=== PATIENT | female | born 1965 | race Caucasian/White ===

== ENCOUNTER → 2016-09-13 | Outpatient (CLI) | payer OTHER ==
[2016-09-13 11:36] VITALS: BP 157/95; PULSE 89; RESP 16; TEMP 98.3; BMI 51.2
--- NOTE | 2016-09-13 11:52 | P.BASOAP ---
Subjective Principal diagnosis: Morbid obesity Patient here today for band adjustment. She has had frequent episodes of vomiting and dysphagia lately. She believes that she has to cc of fluid in her band. She was most recently followed at [facility]. No abdominal pain. The patient has been struggling with her band tolerance of late. She's been having migraines and believes this is contributing to her vomiting issues. Objective - Vital Signs Vital signs: Vital Signs Temp 98.3 F 09/13/16 11:26 Pulse 89 09/13/16 11:26 Resp 16 09/13/16 11:26 BP 157/95 09/13/16 11:26 Pulse Ox Intake & Output 09/12/16 09/13/16 09/13/16 18:59 06:59 18:59 Weight 131.315 kg - Exam Physical exam: General: Well-developed, well-nourished HEENT: Normocephalic, sclerae nonicteric Abdomen: Nontender, nondistended Extremities: No edema Neuro: Alert and oriented Assessment/Plan (1) Morbid obesity Narrative/Plan: Will proceed with band adjustment at this time. We'll move towards eventual band conversion. The patient plans to come to a seminar in the near future. The patient's lap band port was palpated. The site was aseptically prepped. 1% lidocaine was infiltrated into the subcutaneous tissues through a diabetic syringe. The Pinedo needle was advanced into the port. Aspiration took place. A total of 2 ml of fluid was removed. Pressure was held and a sterile dressing was applied. Plan: Date: 09/13/16 Initial Weight: 154.675 kg Initial BMI: 60.4 Current Weight: 131.315 kg Current BMI: 51.2 Type of Surgery: Total Volume in Band: 0 Previous Volume: 2.5 Volume Removed: 2 Volume Added: Band Size:
== END | disposition home or self-care (01) ==
LOC: BARWHC3 11:15
PROVIDERS: ATTEND Surgery
DX: E66.01 Morbid (severe) obesity due to excess calories (principal); Z68.43 Body mass index [BMI] 50.0-59.9, adult
CPT/HCPCS: 99202

== ENCOUNTER → 2017-04-01 | Outpatient (CLI) | payer BC ==
[2017-04-01 08:46] LABS: HCT 40.7 % (34.0-46.0); HGB 13.3 gm/dL (11.4-16.0); Hypochromasia Slight; MCH 27.9 pg (25.0-35.0); MCHC 32.7 g/dL (31.0-37.0); MCV 85.3 fL (80.0-100.0); Mean Platelet Volume 6.6; Platelet Count 279 k/uL (150-450); RBC 4.77 m/uL (3.80-5.40); RDW 14.5 % (11.5-15.5); WBC 10.6 k/uL (3.8-10.6)
[2017-04-01 09:18] LABS: ALT 98 U/L (9-52); AST 81 U/L (14-36); Anion Gap 11 mmol/L; Blood Urea Nitrogen 15 mg/dL (7-17); Calcium 9.7 mg/dL (8.4-10.2); Carbon Dioxide 26 mmol/L (22-30); Chloride 106 mmol/L (98-107); Cholesterol 152 mg/dL (<200); Glucose 171 mg/dL (74-99); HDL Cholesterol 46 mg/dL (40-60); LDL Cholesterol,Calculated 79 mg/dL (0-99); Potassium 4.8 mmol/L (3.5-5.1); Sodium 143 mmol/L (137-145); Triglycerides 134 mg/dL (<150)
[2017-04-01 09:31] LABS: T4, Free (Free Thyroxine) 0.79 ng/dL (0.78-2.19)
[2017-04-01 17:08] LABS: Vitamin D 25 Hydroxy 47.9 ng/mL (30.0-100.0)
[2017-04-01 17:45] LABS: Iron Saturation 10.31 (12.00-45.00)
== END | disposition home or self-care (01) ==
LOC: LABWHC1 08:23
PROVIDERS: ATTEND Family Medicine
DX: I10 Essential (primary) hypertension (principal); E55.9 Vitamin D deficiency, unspecified; E78.5 Hyperlipidemia, unspecified; D50.9 Iron deficiency anemia, unspecified; R53.83 Other fatigue
CPT/HCPCS: 36415; 80048; 80061; 82306; 82728; 83540; 83550; 84439; 84443; 84450; 84460; 85027

== ENCOUNTER → 2017-04-07 | Day surgery (SDC) | payer BC, OTHER ==
[2017-03-31 15:47] VITALS: BMI 51.8
[~2017-04-07] MED LIST: ALPRAZolam 0.25 MG TAB PO PRN; ASPIRIN 325 MG TAB PO ONE; ASPIRIN 81 MG PO SCH; CHOLECALCIFEROL 50000 UNIT PO SCH; FERROUS SULFATE 325 MG TAB PO SCH; HEPARIN SODIUM 1,000 UN/ML (10ML VL) IV ONE; HEPARIN SODIUM 1,000 UN/ML (10ML VL) ONE; INSULIN ASPART 100 UNIT/ML 1 ML 10 ML VIAL SQ ONE; INSULIN GLARGINE SQ SCH; INSULIN LISPRO 70 UNIT SQ SCH; IOHEXOL 350 MG/ML 125ML BOTTLE INJ ONE; LIDOCAINE 2% INJ 20 MG/ML (20 ML MDV) ONE; LIDOCAINE 2% INJ 20 MG/ML SQ ONE; LOSARTAN 50 MG TAB PO SCH; MIDAZOLAM 2 MG/2 ML VIAL ONE; NITROGLYCERIN SL TABS 0.4 MG TAB SUBLINGUAL PRN; NON-FORMULARY DRUG (Cetirizine Hcl [Zyrtec] 10 MG) PO SCH; NON-FORMULARY DRUG (Empagliflozin [Jardiance] 25 MG) PO SCH; NON-FORMULARY DRUG (Liraglutide [Victoza 3-Pak] 1.8 MG) SQ SCH; NON-FORMULARY DRUG (Ranitidine Hcl [Zantac] 150 MG) PO SCH; RX INFO: IV CONTRAST WAS GIVEN 1 EACH MISC MISCELLANE PRN; SODIUM CHLORIDE 0.9% 1,000 ML IV SCH; SODIUM CHLORIDE 0.9% 1,000 ML in EMPTY BAG 1 BAG IV ONE; VENLAFAXINE HCL 75 MG TAB PO SCH; VERAPAMIL 2.5 MG/ML 2 ML AMP ONE; VERAPAMIL SYRINGE (5 MG/10 ML) INTRAARTER ONE; diphenhydrAMINE 50 MG/ML 1 ML VIAL IVP ONE; diphenhydrAMINE 50 MG/ML 1 ML VIAL ONE; fentaNYL (PF) 50 MCG/ML 2 ML AMP IV ONE; fentaNYL (PF) 50 MCG/ML 2 ML AMP ONE
[2017-04-07 07:02] VITALS: TEMP 98.2
[2017-04-07] MEDS: VERAPAMIL SYRINGE (5 MG/10 ML) INTRAARTER ONE ×2 (07:57→08:02)
[2017-04-07 07:58] LABS: Glucose,Whole Blood 167 mg/dL (75-99)
[2017-04-07] MEDS: MIDAZOLAM 2 MG/2 ML VIAL IV ONE ×2 (08:01→08:04)
--- NOTE | 2017-04-07 09:06 | CC ---
CARDIAC CATHETERIZATION REPORT Ms. Dalton is a 51-year-old female with known history of hypertension, hyperlipidemia, diabetes mellitus, who has been complaining of progressive dyspnea on exertion and fatigue, underwent myocardial perfusion imaging that revealed a partial reversible anterior wall defect. In view of that, recommendation was made regarding cardiac catheterization. The procedure as well as the risks and complications were discussed with the patient who was in full understanding and agreement. PROCEDURE: Patient was brought to the crime lab analyst in a fasting semi-sedated state after receiving fentanyl and Benadryl and achieving moderate conscious sedated state. Using Xylocaine anesthesia in the Seldinger technique, a 6-[place] sheath was introduced in the right radial artery. Attempt to cannulate the coronary arteries using 5-[place] 3.5 bend right and left Marcial catheter were unsuccessful because of severe spasm. At that time, those catheters were removed and a 6-[place] Pedro catheter was advanced and images of the left and right coronary system were obtained. Multiple views of the coronary artery including hemiaxial views were obtained. Following this, 5-[place] tight pigtail catheter was introduced in the left ventricle and a 30-degree TIAN view of the left ventricle was obtained. Following that, the catheter and sheaths were removed. Hemostasis was obtained with deployment of a TR band. There was no immediate complication. Patient was returned to her room in stable condition. Of note, the patient received 5000 units of intravenous heparin as well as intra-arterial verapamil. FINDING: LEFT MAIN: This is a large-sized vessel bifurcating in the left circumflex and left anterior descending artery. Left main coronary artery is without any significant obstructive disease. LEFT ANTERIOR DESCENDING ARTERY: This is a large-sized vessel reaching toward the apex with a wraparound apex segment. The left anterior descending artery has no evidence of high-grade stenosis. LEFT CIRCUMFLEX: This is a nondominant vessel giving rise to 3 obtuse marginal branches. The second one is largest in caliber. The left circumflex as well as branches have no evidence of obstructive coronary artery disease. RIGHT CORONARY ARTERY: This is a large dominant vessel bifurcating in PDA and posterolateral segment and branches. The right coronary artery as well as branches have no evidence of obstructive coronary artery disease. LEFT VENTRICULOGRAM: Left ventriculogram is performed 30-degree TIAN view and revealed normal left ventricular size and systolic function. Ejection fraction is 55%. There was no significant mitral regurgitation. HEMODYNAMICS: There was no gradient across the aortic valve. The left ventricular end- diastolic pressure was 20 mmHg. CONCLUSION: 1. Normal coronary arteries. 2. Normal left ventricular size and systolic function. RECOMMENDATION: In view of finding anatomy, recommend continue medical therapy with aggressive coronary risk medications that has been initiated. Those findings and recommendation were discussed with the patient and her family and are in full understanding and agreement. Duration of procedure is 45 minutes. DEA / CHERRIEN: [id number] /
--- NOTE | 2017-04-07 09:12 | LTR ---
April 07, 2017 Re: Elizabeth Sha Dear Dr. Olivares: I had the opportunity to perform cardiac catheterization on Mrs Dalton at [facility] on the 07 of April and a full copy of the procedure note will be forwarded to you. In brief, she was found to have no evidence of high-grade stenosis with preserved left ventricular size and systolic function. Based on those findings, I recommend continuing medical therapy with aggressive coronary risk modification to be initiated. Thank you again for allowing me the opportunity to participate in her care. Please feel free to call for any questions. Sincerely yours, Miguel A Alves MD MMLUDWINL / CHERRIEN: [phone] /
[2017-04-07 09:39] VITALS: RESP 18
[2017-04-07 10:11] VITALS: BP 134/62
[2017-04-07 12:30] VITALS: PULSE 90
== END | disposition home or self-care (01) ==
LOC: CATHCVL 06:21
PROVIDERS: ATTEND Internal Medicine Interventional Cardiology
DX: R94.39 Abnormal result of other cardiovascular function study (principal); R06.09 Other forms of dyspnea; I10 Essential (primary) hypertension; E78.2 Mixed hyperlipidemia; E11.9 Type 2 diabetes mellitus without complications; Z79.4 Long term (current) use of insulin; Z82.49 Family history of ischemic heart disease and other diseases of the circulatory system; G47.33 Obstructive sleep apnea (adult) (pediatric); Z98.84 Bariatric surgery status; Z79.82 Long term (current) use of aspirin; Z79.899 Other long term (current) drug therapy
CPT/HCPCS: 93458; C1894; C1769; J2001; J2250; J1200; J3010; J1644; Q9967

== ENCOUNTER → 2017-11-14 | Outpatient (CLI) | payer BC ==
--- NOTE | 2017-11-15 12:28 | MM ---
Reason for exam: screening (asymptomatic). Last mammogram was performed 3 years and 1 month ago. History: Patient is postmenopausal and had first child at age 39. Family history of breast cancer in maternal aunt at age 42. Took hormonal contraceptives for 1 year 6 months. Physical Findings: A clinical breast exam by your physician is recommended on an annual basis and results should be correlated with mammographic findings. MG 3D Screening Mammo W/Cad Bilateral CC and MLO view(s) were taken. Prior study comparison: October 23, 2014, bilateral MG screening mammo w CAD. May 17, 2012, bilateral digital screening mammo w/CAD. The breast tissue is heterogeneously dense. This may lower the sensitivity of mammography. There is no discrete abnormality. No significant changes when compared with prior studies. ASSESSMENT: Negative, BI-RAD 1 RECOMMENDATION: Routine screening mammogram of both breasts in 1 year.
== END ==
LOC: RADMAMWWP 14:59
PROVIDERS: ATTEND Obstetrics & Gynecology
DX: Z12.31 Encounter for screening mammogram for malignant neoplasm of breast (principal)
CPT/HCPCS: 77063; 77067

== ENCOUNTER → 2018-07-31 | Outpatient (CLI) | payer BC ==
[2018-07-31 15:07] VITALS: BP 178/88; PULSE 95; TEMP 98.7; BMI 57.9
--- NOTE | 2018-07-31 16:57 | P.BASOAP ---
Subjective Progress Note Date: 07/31/18 Principal diagnosis: Morbid obesity Patient known to our service. Last seen 2 years ago. At that time the patient had 2 mL removed from her lap band. Her weight has gone up. At the time that her band was emptied she was having issues with frequent vomiting and reflux. Those issues have gone completely. She has gained 35 pounds the last 8 months. She has had increased insulin requirements. Patient is interested in sleeve gastrectomy. She is not interested in gastric bypass. Objective - Vital Signs Vital signs: Vital Signs Temp 98.7 F 07/31/18 15:04 Pulse 95 07/31/18 15:04 Resp BP 178/88 07/31/18 15:04 Pulse Ox Intake & Output 07/30/18 07/31/18 07/31/18 18:59 06:59 18:59 Weight 148.325 kg - Exam Abdomen: Soft, nontender, nondistended Assessment/Plan (1) Morbid obesity Narrative/Plan: Options of conversion from LAP-BAND to bypass or sleeve gastrectomy reviewed. T he greater degree of weight loss anticipated with gastric bypass discussed in detail. She states she has multiple examples of people she has associated with previously that had difficulties with her gastric bypass and is not interested in malabsorption related surgeries at this time. She would like to proceed with preoperative workup for sleeve gastrectomy conversion. Patient will require preoperative EGD. We'll determine other insurance requirements at this time. Plan: Date: 07/31/18 Initial Weight: 154.675 kg Initial BMI: 60.4 Current Weight: 148.325 kg Current BMI: 57.9 Type of Surgery: Total Volume in Band: 0 Previous Volume: Volume Removed: Volume Added: Band Size:
== END ==
LOC: BARWHC3 14:29
PROVIDERS: ATTEND Surgery
DX: E66.01 Morbid (severe) obesity due to excess calories (principal); Z68.43 Body mass index [BMI] 50.0-59.9, adult; Z98.84 Bariatric surgery status
CPT/HCPCS: 99211

== ENCOUNTER → 2019-01-24 | Outpatient (CLI) | payer BC ==
[2019-01-24 07:25] LABS: HCT 39.2 % (34.0-46.0); HGB 12.2 gm/dL (11.4-16.0); Hypochromasia Moderate; MCH 25.6 pg (25.0-35.0); MCV 82.5 fL (80.0-100.0); Mean Platelet Volume 5.9; Platelet Count 267 k/uL (150-450); RBC 4.75 m/uL (3.80-5.40); RDW 14.8 % (11.5-15.5); WBC 8.6 k/uL (3.8-10.6)
[2019-01-24 07:28] LABS: African American GFR (CKD) >90 (>60 ml/min/1.73 sqM); Blood Urea Nitrogen 9 mg/dL (7-17); Potassium 4.4 mmol/L (3.5-5.1)
== END | disposition home or self-care (01) ==
LOC: LABPAT 06:39
PROVIDERS: ATTEND Surgery
DX: Z01.818 Encounter for other preprocedural examination (principal); Z01.812 Encounter for preprocedural laboratory examination
CPT/HCPCS: 36415; 82565; 84132; 84520; 85027; 93005

== ENCOUNTER 2019-01-25 12:05 | Day surgery (SDC) | payer BC ==
[2019-01-23 15:04] VITALS: BMI 60.4
[~2019-01-25 12:05] MED LIST changes: -ALPRAZolam 0.25 MG TAB PO PRN; -ASPIRIN 325 MG TAB PO ONE; -ASPIRIN 81 MG PO SCH; -CHOLECALCIFEROL 50000 UNIT PO SCH; +DEXAMETHASONE SOD PHOSPHATE 10 MG/ML 1 ML VIAL IV ONE; -FERROUS SULFATE 325 MG TAB PO SCH; -HEPARIN SODIUM 1,000 UN/ML (10ML VL) IV ONE; -HEPARIN SODIUM 1,000 UN/ML (10ML VL) ONE; +HEPARIN SODIUM,PORCINE 5,000 UNIT/ML 1 ML VIAL SQ ONE; -INSULIN ASPART 100 UNIT/ML 1 ML 10 ML VIAL SQ ONE; -INSULIN GLARGINE SQ SCH; -INSULIN LISPRO 70 UNIT SQ SCH; -IOHEXOL 350 MG/ML 125ML BOTTLE INJ ONE; +LACTATED RINGERS 1,000 ML IV SCH; -LIDOCAINE 2% INJ 20 MG/ML (20 ML MDV) ONE; -LIDOCAINE 2% INJ 20 MG/ML SQ ONE; -LOSARTAN 50 MG TAB PO SCH; +MIDAZOLAM 2 MG/2 ML VIAL IV PRN; -MIDAZOLAM 2 MG/2 ML VIAL ONE; -NITROGLYCERIN SL TABS 0.4 MG TAB SUBLINGUAL PRN; -NON-FORMULARY DRUG (Cetirizine Hcl [Zyrtec] 10 MG) PO SCH; -NON-FORMULARY DRUG (Empagliflozin [Jardiance] 25 MG) PO SCH; -NON-FORMULARY DRUG (Liraglutide [Victoza 3-Pak] 1.8 MG) SQ SCH; -NON-FORMULARY DRUG (Ranitidine Hcl [Zantac] 150 MG) PO SCH; -RX INFO: IV CONTRAST WAS GIVEN 1 EACH MISC MISCELLANE PRN; +SCOPOLAMINE 1.5MG/72HR PATCH TRANSDERM ONE; -SODIUM CHLORIDE 0.9% 1,000 ML IV SCH; -SODIUM CHLORIDE 0.9% 1,000 ML in EMPTY BAG 1 BAG IV ONE; -VENLAFAXINE HCL 75 MG TAB PO SCH; -VERAPAMIL 2.5 MG/ML 2 ML AMP ONE; -VERAPAMIL SYRINGE (5 MG/10 ML) INTRAARTER ONE; +ceFAZolin 3 GM in SODIUM CHLORIDE 0.9% 100 ML IVPB ONE; -diphenhydrAMINE 50 MG/ML 1 ML VIAL IVP ONE; -diphenhydrAMINE 50 MG/ML 1 ML VIAL ONE; -fentaNYL (PF) 50 MCG/ML 2 ML AMP IV ONE; +fentaNYL (PF) 50 MCG/ML 2 ML AMP IV PRN; -fentaNYL (PF) 50 MCG/ML 2 ML AMP ONE
[2019-01-25] MEDS ORDERED: LIDOCAINE 1% 20 ML VIAL (10MG/ML) FOR IV START INTRADERMA ONE (12:51)
[2019-01-25] MEDS: ONDANSETRON 4 MG/2 ML VIAL IVP ONE ×2 (12:52→16:39)
[2019-01-25 12:56] LABS: Glucose,Whole Blood 119 mg/dL (75-99)
--- NOTE | 2019-01-25 13:49 | P.GSHP ---
History of Present Illness H&P Date: 01/25/19 Chief Complaint: Chronic cholecystitis 53-year-old female known to our service from previous lap band. Patient's band is empty at this time. Patient was known to have slightly elevated liver enzymes. Recent ultrasound was performed and was found to have gallstones and gallbladder wall thickening. Notices intermittent episodes of sharp epigastric pain right greater than left. Pain does radiate to the back. During these episodes have some nausea and vomiting and some loose stools. No change in the color of her skin urine or stool. Patient still considering conversion to bypass for sleep. ALT 101 AST 97 bilirubin and alkaline phosphatase normal. Past Medical History Past Medical History: Diabetes Mellitus, GERD/Reflux, Hyperlipidemia, Hypertension Additional Past Medical History / Comment(s): obesity , anemia, mild sleep apnea (no machine), heart murmur, Has Lap Band (states no fluid) History of Any Multi-Drug Resistant Organisms: None Reported Past Surgical History: Bariatric Surgery, Section, Heart Catheterization Additional Past Surgical History / Comment(s): Lap band August 2004, Right oopherectomy 1993, Left oopherectomy 2012. Heart Cath ([facility] -Mar 2017) Past Anesthesia/Blood Transfusion Reactions: No Reported Reaction Additional Past Anesthesia/Blood Transfusion Reaction / Comment(s): states long time to wake up Past Psychological History: Anxiety Smoking Status: Never smoker Past Alcohol Use History: None Reported Past Drug Use History: None Reported - Past Family History Mother Family Medical History: Cancer Additional Family Medical History / Comment(s): Rectal cancer Medications and Allergies Home Medications Medication Instructions Recorded Confirmed Type Losartan [Cozaar] 50 mg PO DAILY 05/29/15 01/25/19 History Simvastatin [Zocor] 20 mg PO HS 05/29/15 01/25/19 History Venlafaxine HCl [Effexor] 75 mg PO HS 05/29/15 01/25/19 History Insulin Regular, Human [humulin R 150 unit SQ AC-BRKFST 07/24/18 01/25/19 History U-500 Kwikpen] Dulaglutide [Trulicity] 1.5 mg SQ WEEKLY 01/23/19 01/25/19 History Ergocalciferol [Vitamin D2] 50,000 unit PO Q7D 01/23/19 01/25/19 History Ertugliflozin Pidolate [Steglatro] 5 mg PO DAILY 01/23/19 01/25/19 History Insulin Regular, Human [humulin R 120 unit SQ AC-LUNCH 01/23/19 01/25/19 History U-500 Kwikpen] Insulin Regular, Human [humulin R 150 unit SQ AC-SUPPER 01/23/19 01/25/19 History U-500 Kwikpen] Iron Supplement 1 tab PO DAILY 01/23/19 01/25/19 History Omeprazole 40 mg PO DAILY 01/23/19 01/25/19 History Pioglitazone HCl 30 mg PO DAILY 01/23/19 01/25/19 History metFORMIN HCL [Glucophage] 1,000 mg PO BID 01/23/19 01/25/19 History Allergies Allergy/AdvReac Type Severity Reaction Status Date / Time codeine AdvReac Nausea & Verified 01/25/19 12:53 Vomiting hydrocodone [From Vicodin] AdvReac Nausea & Verified 01/25/19 12:53 Vomiting Surgical - Exam Vital Signs Temp Pulse Resp BP Pulse Ox 98.5 F 101 H 20 166/72 96 01/25/19 12:46 01/25/19 12:46 01/25/19 12:46 01/25/19 12:46 01/25/19 12:46 Physical exam: General: Well-developed, well-nourished HEENT: Normocephalic, sclerae nonicteric Abdomen: Nontender, nondistended Extremities: No edema Neuro: Alert and oriented Results - Labs Abnormal Lab Results - Last 24 Hours (Table) 01/25/19 Range/Units 12:51 POC Glucose (mg/dL) 119 H (75-99) mg/dL Assessment and Plan (1) Chronic cholecystitis Narrative/Plan: Patient with elevated liver enzymes and gallstones with gallbladder wall thickening. Informed the patient that the elevation and ALT and AST may be on the basis of fatty infiltration of liver. Concurrent inflammation at the gallbladder may be contributing. Do not clinically suspect choledocholithiasis at this time. We'll proceed with laparoscopic cholecystectomy, possible open cholecystectomy at this time. Risks of bleeding, infection, bile leak, bile duct injury, retained common bile duct stone, trocar injury, conversion to an open procedure, hernia, anesthesia related complications were reviewed. The patient understands and wishes to proceed. Current Visit: Yes Status: Acute Code(s): K81.1 - CHRONIC CHOLECYSTITIS SNOMED Code(s): 96642610
[2019-01-25] MEDS ORDERED: KETOROLAC 30 MG/ML 1 ML VIAL ONE (15:10)
[2019-01-25] MEDS ORDERED: LIDOCAINE 1% INJ 10MG/ML (20 ML MDV) ONE (15:10)
[2019-01-25] MEDS ORDERED: ROCURONIUM BROMIDE 10 MG/ML 10 ML VIAL IV ONE (15:10)
[2019-01-25] MEDS ORDERED: NEOSTIGMINE 1 MG/ML 10 ML VIAL ONE (15:10)
[2019-01-25] MEDS ORDERED: SUCCINYLCHOLINE CHLORIDE 100 MG/5 ML SYR IV ONE (15:10)
[2019-01-25] MEDS ORDERED: PROPOFOL 10 MG/ML 20 ML VIAL IV ONE (15:10)
[2019-01-25] MEDS ORDERED: fentaNYL (PF) 50 MCG/ML 2 ML AMP ONE (15:10)
[2019-01-25] MEDS ORDERED: GLYCOPYRROLATE 0.2 MG/ML 2 ML VIAL ONE (15:10)
[2019-01-25] MEDS ORDERED: MIDAZOLAM 2 MG/2 ML VIAL ONE (15:10)
[2019-01-25] MEDS ORDERED: PHENYLEPHRINE-0.9% NACL SYG 1 MG/10 ML SYRINGE ONE (15:10)
[2019-01-25] MEDS ORDERED: BUPIVACAINE (PF) 0.5% 30 ML VIAL SQ ONE (15:40)
[2019-01-25] MEDS ORDERED: traMADol 50 MG TAB PO PRN (16:16)
[2019-01-25] MEDS ORDERED: NALOXONE 0.4 MG/ML 1 ML VIAL IV PRN (16:16)
--- NOTE | 2019-01-25 16:18 | P.OP ---
Date of Procedure: 01/25/19 Procedure(s) Performed: PREOPERATIVE DIAGNOSIS: Chronic cholecystitis POSTOPERATIVE DIAGNOSIS: Same, nodular liver PROCEDURE: Laparoscopic cholecystectomy SURGEON: Kiah EBL: Minimal see anesthesia record ANESTHESIA: Gen. COMPLICATIONS: None OPERATIVE PROCEDURE: The patient was brought and placed on the operating room table in the supine position. The patient was placed under general anesthesia at that time. The abdomen was prepped and draped in the usual sterile fashion. A small curvilinear supraumbilical incision was made. The fascia was grasped with the Divya forceps. The fascia was retracted anteriorly. The Veress needle was advanced into the peritoneal cavity. The saline drop test was n ormal. Insufflation took place up to 15 mmHg. A 5 mm optical trocar was advanced and the peritoneal cavity. 2 additional 5 mm trochars were placed in the right upper quadrant under direct visualization. A 12 mm trocar was advanced into the epigastric incision site. The patient's liver had a nodular appearance. The gallbladder was mildly inflamed. The gallbladder was retracted superiorly and laterally. The peritoneum overlying the infundibulum was bluntly dissected. The patient's cystic duct was visualized. The junction between the cystic duct common and hepatic duct was identified. The cystic duct was then divided after placement of 3 12 mm clips on the patient's side and one on the specimen side. The cystic artery was identified and clipped as well. A small vessel was seen along the gallbladder fossa and clipped as well. The gallbladder was then removed from the liver bed using electrocautery. The gallbladder was then removed from the epigastric trocar site with an Endo Catch bag. The gallbladder fossa was irrigated with saline. There was no evidence of any bleeding or biliary drainage seen. The fascia at the 12 millimeter site was closed using a Scooby-Urvashi 0 Vicryl stitch. The trochars were then removed. The skin at all 4 sites was closed using a 4-0 Monocryl stitch. Adptht-zf-azeui 4-0 Monocryl sutures were used at our lateral to 5 mm skin incisions secondary to persistent skin bruising. Skin glue was utilized on the incision sites. At the end of this procedure the sponge and needle counts were correct. DISPOSITION: Stable to the recovery room
[2019-01-25 16:46] VITALS: TEMP 100.4
[2019-01-25 17:03] LABS: Glucose,Whole Blood 227 mg/dL (75-99)
[2019-01-25] MEDS ORDERED: ACETAMINOPHEN IV (For NPO) 1,000 MG/100 ML VIAL IVPB ONE (17:15)
[2019-01-25 17:27] VITALS: RESP 18
[2019-01-25 18:19] VITALS: BP 137/67; PULSE 58
== END 2019-01-25 18:19 | disposition home or self-care (01) ==
LOC: OR 12:05
PROVIDERS: ATTEND Surgery
DX: K80.10 Calculus of gallbladder with chronic cholecystitis without obstruction (principal); K76.89 Other specified diseases of liver; E11.9 Type 2 diabetes mellitus without complications; E78.5 Hyperlipidemia, unspecified; I10 Essential (primary) hypertension; D64.9 Anemia, unspecified; G47.33 Obstructive sleep apnea (adult) (pediatric); R01.1 Cardiac murmur, unspecified; F41.9 Anxiety disorder, unspecified; E66.01 Morbid (severe) obesity due to excess calories; Z68.44 Body mass index [BMI] 60.0-69.9, adult; Z98.84 Bariatric surgery status; Z98.890 Other specified postprocedural states; Z90.722 Acquired absence of ovaries, bilateral; Z91.89 Other specified personal risk factors, not elsewhere classified; Z79.899 Other long term (current) drug therapy; Z79.4 Long term (current) use of insulin; Z88.5 Allergy status to narcotic agent; Z80.0 Family history of malignant neoplasm of digestive organs
CPT/HCPCS: 47562; 88304; J2250; J1644; J1100; J2710; J0690; J2405; J2001; J3010; J1885; J0131; J2370; J0330; J2704

== ENCOUNTER → 2020-01-30 | Outpatient (CLI) | payer BC | END | disposition home or self-care (01) | LOC: LABWHC1 12:27 | PROVIDERS: ATTEND Family Medicine | DX: Z20.828 Contact with and (suspected) exposure to other viral communicable diseases (principal) | CPT/HCPCS: 87502; U0003; C9803 ==

== ENCOUNTER → 2020-01-31 | Outpatient (CLI) | payer BC | END | disposition home or self-care (01) | LOC: LABWHC1 14:55 | PROVIDERS: ATTEND Family Medicine | DX: Z20.828 Contact with and (suspected) exposure to other viral communicable diseases (principal) | CPT/HCPCS: 87502; U0003; C9803 ==

== ENCOUNTER → 2020-11-30 | Outpatient (CLI) | payer BC ==
--- NOTE | 2020-12-02 08:44 | MM ---
Reason for exam: screening (asymptomatic). Last mammogram was performed 3 years and 1 month ago. History: Patient is postmenopausal and had first child at age 39. Family history of breast cancer in maternal aunt at age 42. Took hormonal contraceptives for 1 year 6 months. Physical Findings: A clinical breast exam by your physician is recommended on an annual basis and results should be correlated with mammographic findings. MG 3D Screening Mammo W/Cad Bilateral CC and MLO view(s) were taken. CV view(s) were taken of the left breast. Prior study comparison: November 14, 2017, bilateral MG 3d screening mammo w/cad. October 23, 2014, bilateral MG screening mammo w CAD. There are scattered fibroglandular densities. New grouped left subareolar calcifications. ASSESSMENT: Incomplete: need additional imaging evaluation, BI-RAD 0 RECOMMENDATION: Special view mammogram of the left breast. (magnification) [facility] will attempt to contact patient to return for supplemental views.
== END | disposition home or self-care (01) ==
LOC: RADMAMWWP 12:43
PROVIDERS: ATTEND Obstetrics & Gynecology
DX: Z12.31 Encounter for screening mammogram for malignant neoplasm of breast (principal); Z78.0 Asymptomatic menopausal state; Z80.3 Family history of malignant neoplasm of breast
CPT/HCPCS: 77063; 77067

== ENCOUNTER → 2020-12-08 | Outpatient (CLI) | payer BC ==
--- NOTE | 2020-12-08 14:41 | MM ---
Reason for exam: additional evaluation requested from abnormal screening. Last mammogram was performed less than 1 month ago. History: Patient is postmenopausal and had first child at age 39. Family history of breast cancer in maternal aunt at age 42. Took hormonal contraceptives for 1 year 6 months. Physical Findings: Nurse did not find any significant physical abnormalities on exam. MG 3D Work Up W/Cad LT CC with magnification, LM with magnification, and LM view(s) were taken of the left breast. Prior study comparison: November 30, 2020, bilateral MG 3d screening mammo w/cad. November 14, 2017, bilateral MG 3d screening mammo w/cad. Finding: There are indeterminate coarse heterogeneous, linear calcifications in the lower outer quadrant, anterior position of the left breast. New finding since November 14, 2017. These results were verbally communicated with the patient and result sheet given to the patient on 12/08/20. ASSESSMENT: Suspicious, BI-RAD 4 RECOMMENDATION: Stereotactic core biopsy of the left breast. Called Dr. Hernandez's office with mammographic findings and has scheduled an appointment for the patient for 12/31/20 at 11:[address] Dupont. Biopsy scheduled for 12/21/20 at 10:30. PRELIMINARY REPORT CALLED AND FAXED TO DR. DUPONT ON 12/08/20.
== END | disposition home or self-care (01) ==
LOC: RADMAMWWP 13:23
PROVIDERS: ATTEND Obstetrics & Gynecology
DX: R92.1 Mammographic calcification found on diagnostic imaging of breast (principal); Z78.0 Asymptomatic menopausal state; Z80.3 Family history of malignant neoplasm of breast; Z79.3 Long term (current) use of hormonal contraceptives
CPT/HCPCS: 77061; 77065

== ENCOUNTER → 2020-12-21 | Day surgery (SDC) | payer BC ==
[2020-12-21 10:16] VITALS: RESP 16
[2020-12-21 11:36] VITALS: BP 143/76; PULSE 81; TEMP 98
--- NOTE | 2020-12-21 19:29 | MM ---
EXAMINATION TYPE: MG stereo VAD BX LT DATE OF EXAM: 12/21/2020 COMPARISON: 12/08/2020 and 11/30/2020 CLINICAL HISTORY: 55-year-old female abnormal mammogram, referred for scattered epicardial biopsy of left breast microcalcifications TECHNIQUE: Stereotactic guided core biopsy of the left breast. FINDINGS: The procedure of stereotactic guided core biopsy was explained to the patient. Benefits, a lternatives, and risks were discussed. An informed consent was then obtained. [facility]. [facility] pathway was an inferior approach. I performed the localization, followed by the remainder of the procedure. A vacuum assisted biopsy gun was used to obtain multiple core samples. The patient tolerated the procedure well without any immediate complication. The patient was kept in the radiology department for short stay after the procedure and then discharged home in stable condi tion. Targeted calcifications are identified in specimen mammogram. Post biopsy mammogram shows the clip t o appear in satisfactory position relative to the targeted area of concern on the preprocedure images in the subareolar lower outer quadrant. IMPRESSION: SUCCESSFUL, UNCOMPLICATED STEREOTACTIC GUIDED CORE BIOPSY SUBAREOLAR LOWER OUTER QUADRANT LEFT BREAST MICROCALCIFICATIONS. IF BENIGN RESULTS, SIX-MONTH FOLLOW-UP POSTBIOPSY MAMMOGRAM WILL BE RECOMMENDED . FULL PATHOLOGY RESULTS TO FOLLOW.
== END ==
LOC: RADMAMWWP 09:27
PROVIDERS: ATTEND Surgery
DX: C50.912 Malignant neoplasm of unspecified site of left female breast (principal); Z17.0 Estrogen receptor positive status [ER+]
CPT/HCPCS: 88305; 88342; 88341; 19081; A4648; J2001

== ENCOUNTER → 2021-01-15 | Outpatient (CLI) | payer BC ==
[2021-01-15 15:02] LABS: Basophils # (A) 0.1 k/uL (0-0.2); Basophils % (A) 1 %; Eosinophils # (A) 0.3 k/uL (0-0.7); Eosinophils % (A) 3 %; HGB 12.3 gm/dL (11.4-16.0); Lymphocytes # (A) 3.1 k/uL (1.0-4.8); Lymphocytes % (A) 31 %; MCH 26.5 pg (25.0-35.0); MCHC 32.3 g/dL (31.0-37.0); MCV 82.1 fL (80.0-100.0); Mean Platelet Volume 7.3; Monocytes # (A) 0.5 k/uL (0-1.0); Monocytes % (A) 5 %; Neutrophils % (A) 59 %; Platelet Count 248 k/uL (150-450); RBC 4.62 m/uL (3.80-5.40); RDW 15.5 % (11.5-15.5); WBC 10.2 k/uL (3.8-10.6)
[2021-01-15 15:20] LABS: African American GFR (CKD) >90 (>60 ml/min/1.73 sqM); Blood Urea Nitrogen 8 mg/dL (7-17); Non-African American GFR(CKD) >90 (>60 ml/min/1.73 sqM); Potassium 4.2 mmol/L (3.5-5.1)
== END | disposition home or self-care (01) ==
LOC: LABPAT 13:48
PROVIDERS: ATTEND Surgery
DX: Z01.812 Encounter for preprocedural laboratory examination (principal)
CPT/HCPCS: 82565; 84132; 84520; 85025; 93005

== ENCOUNTER 2021-01-18 06:51 | Day surgery (SDC) | payer BC ==
[2021-01-15 09:02] VITALS: BMI 54.7
[~2021-01-18 06:51] MED LIST changes: +ACETAMINOPHEN TAB 500 MG TAB PO PRN; -DEXAMETHASONE SOD PHOSPHATE 10 MG/ML 1 ML VIAL IV ONE; +DEXAMETHASONE SOD PHOSPHATE 4 MG/ML 1 ML VIAL IV ONE; -HEPARIN SODIUM,PORCINE 5,000 UNIT/ML 1 ML VIAL SQ ONE; +HEPARIN SODIUM,PORCINE/PF 5,000 UNIT/0.5 ML SYRINGE SQ PRN; +LIDOCAINE 1% (10MG/ML) FOR IV START INTRADERMA PRN; -MIDAZOLAM 2 MG/2 ML VIAL IV PRN; +ONDANSETRON 4 MG/2 ML VIAL IVP ONE; +Pre Op ABX Message 1 EACH MISC MISCELLANE ONE; -ceFAZolin 3 GM in SODIUM CHLORIDE 0.9% 100 ML IVPB ONE; -fentaNYL (PF) 50 MCG/ML 2 ML AMP IV PRN
[2021-01-18] MEDS ORDERED: fentaNYL (PF) 50 MCG/ML 2 ML AMP IV PRN (07:00)
[2021-01-18 07:23] VITALS: BP 172/87; PULSE 91; RESP 16; TEMP 97.1
[2021-01-18 07:43] LABS: Glucose,Whole Blood 429 mg/dL (75-99)
--- NOTE | 2021-01-18 09:23 | P.PN ---
Progress Note - Text Progress Note Date: 01/18/21 Patient came in today for elective left breast lumpectomy. She was found have her blood sugar at 429. Apparently she did not take any insulin this morning as she was told not to by the nurse that contacted her last week from the hospital. Spoke with anesthesia. They recommend canceling this procedure. The patient and I discussed the options but decided to cancel as well. I spoke to her welfare project manager. He will come up with some ways to improve her perioperative blood sugar realizing that she will not be within a "normal range". I will contact the patient to reschedule surgery the next 1-2 weeks.
== END 2021-01-18 08:12 | disposition home or self-care (01) ==
LOC: OR 06:51
PROVIDERS: ATTEND Surgery
DX: D05.12 Intraductal carcinoma in situ of left breast (principal); Z53.8 Procedure and treatment not carried out for other reasons; E66.01 Morbid (severe) obesity due to excess calories; Z68.43 Body mass index [BMI] 50.0-59.9, adult; F41.9 Anxiety disorder, unspecified; I10 Essential (primary) hypertension; Z90.722 Acquired absence of ovaries, bilateral; Z90.710 Acquired absence of both cervix and uterus; Z98.891 History of uterine scar from previous surgery; Z98.890 Other specified postprocedural states; Z98.84 Bariatric surgery status; Z90.49 Acquired absence of other specified parts of digestive tract; Z83.49 Family history of other endocrine, nutritional and metabolic diseases; Z80.0 Family history of malignant neoplasm of digestive organs; Z80.8 Family history of malignant neoplasm of other organs or systems; Z82.49 Family history of ischemic heart disease and other diseases of the circulatory system; Z83.3 Family history of diabetes mellitus; Z79.84 Long term (current) use of oral hypoglycemic drugs; Z79.4 Long term (current) use of insulin; Z79.899 Other long term (current) drug therapy; Z88.5 Allergy status to narcotic agent; Z88.8 Allergy status to other drugs, medicaments and biological substances

== ENCOUNTER 2021-01-22 09:08 | Day surgery (SDC) | payer BC ==
[2021-01-19 17:13] VITALS: BMI 53.7
--- NOTE | 2021-01-22 07:56 | P.GSHP ---
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 Areas of calcifications measuring about 1-1.5 cm. Patient was seen in the office 3-4 weeks ago. She actually was scheduled for surgery earlier this week but this was canceled because of elevated blood sugars. Coming in today for left breast lumpectomy with sentinel lymph node biopsy. Family history of breast cancer in a maternal aunt. Past Medical History Past Medical History: Cancer, Diabetes Mellitus, GERD/Reflux, Hyperlipidemia, Hypertension, Sleep Apnea/CPAP/BIPAP Additional Past Medical History / Comment(s): obesity , anemia, mild sleep apnea (no machine), heart murmur, Has Lap Band (states no fluid), NEW LT BREAST CANCER DX. CBG 429 -PROCEDURE RESCHEDULED TO 01/22/[address] NO REGARDING BLOOD SUGAR MORNING OF PROCEDURE. WAITING FOR CALL BACK FROM [facility] TO SEE [employer] MACHINE OPERATOR SPECIALIST. History of Any Multi-Drug Resistant Organisms: None Reported Past Surgical History: Bariatric Surgery, Section, Cholecystectomy, Heart Catheterization Additional Past Surgical History / Comment(s): Lap band August 2004, Right oopherectomy 1993, Left oopherectomy 2012. Heart Cath ([facility] -Mar 2017)-clear, COLONOSCOPY Past Anesthesia/Blood Transfusion Reactions: No Reported Reaction Additional Past Anesthesia/Blood Transfusion Reaction / Comment(s): states long time to wake up Smoking Status: Never smoker - Past Family History Mother Family Medical History: Cancer Additional Family Medical History / Comment(s): Rectal cancer Medications and Allergies Home Medications Medication Instructions Recorded Confirmed Type Losartan [Cozaar] 50 mg PO DAILY 05/29/15 01/19/21 History Venlafaxine HCl [Effexor] 75 mg PO HS 05/29/15 01/19/21 History Ergocalciferol [Vitamin D2] 50,000 unit PO ALEXANDRA 01/23/19 01/19/21 History Insulin Regular, Human [humulin R 300 unit SQ AC-TID 01/23/19 01/19/21 History U-500 Kwikpen] Omeprazole 40 mg PO DAILY 01/23/19 01/19/21 History metFORMIN HCL [Glucophage] 1,000 mg PO BID 01/23/19 01/19/21 History Furosemide [Lasix] 20 mg PO DAILY PRN 12/14/20 01/19/21 History Phentermine/Topiramate [Qsymia 15 1 tab PO DAILY 12/14/20 01/19/21 History mg-92 mg Capsule] Semaglutide [Ozempic] 1 mg INJ ALEXANDRA 12/14/20 01/19/21 History ALPRAZolam [Xanax] 0.5 mg PO HS PRN 01/15/21 01/19/21 History Cetirizine HCl [Zyrtec] 10 mg PO HS 01/15/21 01/19/21 History Rosuvastatin [Crestor] 10 mg PO HS 01/15/21 01/19/21 History Allergies Allergy/AdvReac Type Severity Reaction Status Date / Time codeine AdvReac Nausea & Verified 01/19/21 17:07 Vomiting hydrocodone [From Vicodin] AdvReac Nausea & Verified 01/19/21 17:07 Vomiting Surgical - Exam Physical exam: General: Well-developed, well-nourished HEENT: Normocephalic, sclerae nonicteric Right breast: No masses, no adenopathy Left breast: No masses, no adenopathy, recent scar noted Abdomen: Nontender, nondistended Extremities: No edema Neuro: Alert and oriented Assessment and Plan (1) Breast cancer, left breast Narrative/Plan: 55-year-old female with recent diagnosis of left breast high-grade ductal carcinoma in situ. We'll proceed with left breast wire localization lumpectomy with sentinel lymph node biopsy and injection at this time. Risks of bleeding, infection, scarring, possible need for further surgery, recurrence, seroma, nerve damage, numbness, weakness, lymphedema, possible need for axillary dissection reviewed. She understands wishes to proceed. Status: Acute Code(s): C50.912 - MALIGNANT NEOPLASM OF UNSPECIFIED SITE OF LEFT FEMALE BREAST SNOMED Code(s): 929389012
[2021-01-22] MEDS ORDERED: ALPRAZolam 0.5 MG TAB ONE (09:55)
[2021-01-22 09:56] LABS: Glucose,Whole Blood 74 mg/dL (75-99)
[2021-01-22] MEDS ORDERED: DEXTROSE 50% SYRINGE 50 ML IVP ONE (09:59)
[2021-01-22] MEDS ORDERED: ALPRAZolam 0.5 MG TAB PO ONE (09:59)
[2021-01-22] MEDS ORDERED: LIDOCAINE 1% INJ 10MG/ML (20 ML MDV) SQ ONE (11:40)
[2021-01-22] MEDS ORDERED: ceFAZolin 3 GM in SODIUM CHLORIDE 0.9% 100 ML IVPB ONE (11:57)
[2021-01-22] MEDS ORDERED: PROPOFOL 10 MG/ML 20 ML VIAL IV ONE (11:57)
[2021-01-22] MEDS ORDERED: NEOSTIGMINE 1 MG/ML 10 ML VIAL ONE (11:57)
[2021-01-22] MEDS ORDERED: GLYCOPYRROLATE 0.2 MG/ML 2 ML VIAL ONE (11:57)
[2021-01-22] MEDS ORDERED: ROCURONIUM 10 MG/ML (5 ML VIAL) IV ONE (11:57)
[2021-01-22] MEDS ORDERED: fentaNYL (PF) 50 MCG/ML 2 ML AMP ONE (11:57)
[2021-01-22] MEDS ORDERED: LIDOCAINE 1% INJ 10MG/ML (20 ML MDV) ONE (11:57)
[2021-01-22] MEDS ORDERED: MIDAZOLAM 2 MG/2 ML VIAL ONE (11:57)
[2021-01-22] MEDS ORDERED: SUCCINYLCHOLINE CHLORIDE 100 MG/5 ML SYR IV ONE (11:57)
[2021-01-22] MEDS ORDERED: PHENYLEPHRINE-0.9% NACL SYG 1,000 MCG/10 ML SYRINGE ONE (11:57)
[2021-01-22] MEDS ORDERED: BUPIVACAINE (PF) 0.25% 30 ML VIAL SQ ONE ×2 (12:39→13:25)
--- NOTE | 2021-01-22 13:10 | NM ---
EXAMINATION TYPE: NM sentinel node injection DATE OF EXAM: 01/22/2021 COMPARISON: NONE INDICATION: Abnormal mammogram. Informed consent was obtained. A timeout was performed. The area around the left nipple was cleansed with alcohol. In a single dose, a total of 512 uCi Cesar hnetium 99m Tilmanocept was injected. The patient tolerated the procedure very well. IMPRESSIONS: 1. Successful injection for sentinel node evaluation.
[2021-01-22] MEDS ORDERED: NALOXONE 0.4 MG/ML 1 ML VIAL IV PRN (13:51)
[2021-01-22] MEDS ORDERED: traMADol 50 MG TAB PO PRN (13:51)
--- NOTE | 2021-01-22 13:56 | P.OP ---
Date of Procedure: 01/22/21 Procedure(s) Performed: PREOPERATIVE DIAGNOSIS: Left left breast cancer POSTOPERATIVE DIAGNOSIS: Same PROCEDURE: Right Breast wire localization lumpectomy with sentinel lymph node biopsy SURGEON: Kiah EBL: Minimal ANESTHESIA: General COMPLICATIONS: None OPERATIVE PROCEDURE: Patient was placed on the operating room table in the supine position. 2 mL of methylene blue was injected into the subareolar space. The breast was then massaged for 5 minutes. The breast was prepped and draped in usual sterile fashion. The left axilla was addressed at that time. The hot spot in the left axilla was identified. A small curvilinear incision was made using the scalpel. Dissection down through the subcutaneous tissues took place using electrocautery. Using the neoprobe I identified a total of 4 sentinel lymph nodes. Only one of these was blue in color. These had benign exam characteristics. These were all removed and sent to pathology for permanent sectioning. The surgical site was inspected and no bleeding was seen. The subcutaneous tissues were closed using 3-0 Vicryl sutures. The skin was closed using 4-0 Monocryl sutures. The wire entrance site was then addressed. This was present at the 4:00 periareolar location. A curvilinear incision was made adjacent to the wire entrance site. I followed the wire down into the breast tissue. An adequate lumpectomy specimen then took place around the wire. Margins of 1.5-2 cm worth attempted to be achieved. A larger margin posteriorly was achieved after the images demonstrated the calcifications to be primarily posterior to the clip placement. The initial specimen was also painted the appropriate 6 colors. Clips were used to identify the lumpectomy cavity. The clip was confirmed to be within the lumpectomy specimen by radiology. The subcutaneous tissues were closed using 3-0 Vicryl sutures. The skin was closed using a running 4-0 Monocryl stitch. Skin glue was then applied. DISPOSITION: Stable to recovery room
[2021-01-22] MEDS ORDERED: ONDANSETRON 4 MG/2 ML VIAL ONE (14:03)
[2021-01-22 14:04] LABS: Glucose,Whole Blood 136 mg/dL (75-99)
[2021-01-22] MEDS ORDERED: ONDANSETRON 4 MG/2 ML VIAL IVP ONE ×2 (14:08→14:10)
[2021-01-22] MEDS: HYDROmorphone 0.5 MG/0.5 ML SYRINGE IVP PRN ×2 (14:10→15:17)
[2021-01-22 14:16] VITALS: TEMP 97
[2021-01-22] MEDS ORDERED: KETOROLAC 15 MG/ML 1 ML VIAL ONE (14:27)
[2021-01-22] MEDS ORDERED: KETOROLAC 15 MG/ML 1 ML VIAL IVP ONE (14:32)
--- NOTE | 2021-01-22 15:09 | P.NAPBC ---
NAPBC Queries - NAPBC Queries Was patient's case review presented at [facility] tumor board? If no, comment.: No Was patient's pathology reviewed at [facility]? If no, comment.: Yes Was breast conservation surgery offered? If no, comment.: Yes Was sentinel node biopsy offered? If no, comment.: Yes Was diagnosis confirmed by percutaneous core biopsy? If no, comment.: Yes Is patient mastectomy patient?: No Was a preop referral to reconstructive surgeon offered?: Yes Clinical Stage: 0
--- NOTE | 2021-01-22 15:16 | MM ---
EXAMINATION TYPE: MG pre op needle loc LT DATE OF EXAM: 01/22/2021 COMPARISON: 12/21/2020 mammogram CLINICAL HISTORY: Abnormal biopsy, neoplasm TECHNIQUE: Needle localization with wire placement and surgical excision of area of concern in the le ft breast. FINDINGS: The procedure of needle localization with wire placement for surgical excision was explaine d to the patient. Risk, benefits, and alternatives were discussed. An informed consent was then obt ained. A timeout was performed. The overlying skin was prepped and draped in usual sterile fashion. Lidocaine 1% was used as anesthe tic into the skin and subcutaneous tissue up to the level of area of concern. A 7 cm needle was used . This was placed via a lateral approach under mammographic guidance. Subsequent 90 degrees mammogr am show the needle to be in satisfactory position relative to the targeted area. The wire was placed through the needle and the needle was withdrawn. The wire was fixed to patient's skin. Images were marked for surgeon. The patient tolerated the procedure well without any immediate complication. Specimen: The wire and the targeted biopsy clip are identified within the specimen mammogram. IMPRESSION: 1. Successful wire localization and excision. Recommendations: 1. Recommendations are pending pathology results.
[2021-01-22 15:21] LABS: Glucose,Whole Blood 176 mg/dL (75-99)
[2021-01-22] MEDS ORDERED: HYDROmorphone 0.5 MG/0.5 ML SYRINGE IVP ONE (15:30)
[2021-01-22 15:53] VITALS: RESP 20
[2021-01-22 16:40] VITALS: BP 134/72; PULSE 95
== END 2021-01-22 16:46 | disposition home or self-care (01) ==
LOC: OR 09:08
PROVIDERS: ATTEND Surgery
DX: C50.912 Malignant neoplasm of unspecified site of left female breast (principal); E11.9 Type 2 diabetes mellitus without complications; I10 Essential (primary) hypertension; K21.9 Gastro-esophageal reflux disease without esophagitis; E78.5 Hyperlipidemia, unspecified; G47.30 Sleep apnea, unspecified; Z79.4 Long term (current) use of insulin
CPT/HCPCS: 19301; 19281; 76098; 38792; C1819; A9520; J2250; J1100; J2710; J0690; J2405; J2001; J3010; J1885; J2370; J0330; J2704; J1170; J1644

== ENCOUNTER 2021-03-01 06:33 | Day surgery (SDC) | payer BC ==
[2021-02-26 09:55] VITALS: BMI 54.2
[~2021-03-01 06:33] MED LIST changes: -DEXAMETHASONE SOD PHOSPHATE 4 MG/ML 1 ML VIAL IV ONE; -LACTATED RINGERS 1,000 ML IV SCH; -LIDOCAINE 1% (10MG/ML) FOR IV START INTRADERMA PRN; -ONDANSETRON 4 MG/2 ML VIAL IVP ONE; -SCOPOLAMINE 1.5MG/72HR PATCH TRANSDERM ONE
[2021-03-01] MEDS ORDERED: HYDROmorphone 0.5 MG/0.5 ML SYRINGE IVP PRN (07:16)
[2021-03-01] MEDS ORDERED: MIDAZOLAM 2 MG/2 ML VIAL IV PRN (07:16)
[2021-03-01] MEDS ORDERED: LACTATED RINGERS 1,000 ML IV SCH (07:16)
[2021-03-01] MEDS ORDERED: DEXAMETHASONE SOD PHOSPHATE 4 MG/ML 1 ML VIAL IV ONE (07:16)
[2021-03-01] MEDS ORDERED: ONDANSETRON 4 MG/2 ML VIAL IVP ONE (07:16)
[2021-03-01] MEDS ORDERED: LIDOCAINE 1% (10MG/ML) FOR IV START INTRADERMA PRN (07:16)
[2021-03-01 07:39] LABS: Glucose,Whole Blood 99 mg/dL (75-99)
[2021-03-01] MEDS ORDERED: PHENYLEPHRINE-0.9% NACL SYG 1,000 MCG/10 ML SYRINGE ONE (07:49)
[2021-03-01] MEDS ORDERED: SUCCINYLCHOLINE CHLORIDE VIAL 200 MG/10 ML VIAL IV ONE (07:49)
[2021-03-01] MEDS ORDERED: MIDAZOLAM 2 MG/2 ML VIAL ONE (07:49)
[2021-03-01] MEDS ORDERED: .fentaNYL (PF) 50 MCG/ML 2 ML AMP ONE (07:49)
[2021-03-01] MEDS ORDERED: LIDOCAINE 1% INJ 10MG/ML (20 ML MDV) ONE (07:49)
[2021-03-01] MEDS ORDERED: PROPOFOL 10 MG/ML 20 ML VIAL IV ONE (07:49)
[2021-03-01] MEDS ORDERED: SCOPOLAMINE 1.5MG/72HR PATCH TRANSDERM ONE (07:52)
[2021-03-01] MEDS ORDERED: SODIUM CHLORIDE 0.9% 150 ML with ceFAZolin 3,000 MG IV ONE ×2 (08:22)
[2021-03-01] MEDS ORDERED: BUPIVACAIN-EPI 0.25%-1:200,000 30 ML VIAL SQ ONE ×2 (08:29)
[2021-03-01] MEDS ORDERED: traMADol 50 MG TAB PO PRN (09:14)
[2021-03-01] MEDS ORDERED: NALOXONE 0.4 MG/ML 1 ML VIAL IV PRN (09:14)
--- NOTE | 2021-03-01 09:17 | P.OP ---
Date of Procedure: 03/01/21 Procedure(s) Performed: PREOPERATIVE DIAGNOSIS: Left breast cancer POSTOPERATIVE DIAGNOSIS: Same PROCEDURE: Left breast re-lumpectomy SURGEON: Kiah EBL: 10 mL ANESTHESIA: General COMPLICATIONS: None OPERATIVE PROCEDURE: Patient was placed on the operating room table in the supine position. The breast was prepped and draped in usual sterile fashion. The previous incision was reexcised. Saphenous tissues were divided using electrocautery. The lumpectomy cavity was encountered. The lumpectomy cavity was reexcised at that time with all margins except the anterior margin being addressed. The 5 sides were painted the appropriate colors. Clips were used to demarcate the lumpectomy space. The subcutaneous tissues were then closed using 3-0 Vicryl sutures. The skin was closed using a running 4-0 Monocryl stitch. Skin glue was then applied. DISPOSITION: Stable to recovery room
[2021-03-01 09:22] VITALS: TEMP 97
[2021-03-01] MEDS ORDERED: KETOROLAC 15 MG/ML 1 ML VIAL IVP ONE (09:50)
[2021-03-01 10:02] VITALS: RESP 20
[2021-03-01 10:06] LABS: Glucose,Whole Blood 86 mg/dL (75-99)
[2021-03-01] MEDS ORDERED: MEPERIDINE 50 MG/ML SYRINGE IVP ONE (10:24)
[2021-03-01 10:54] VITALS: BP 124/72; PULSE 80
== END 2021-03-01 11:15 | disposition home or self-care (01) ==
LOC: OR 06:33
PROVIDERS: ATTEND Surgery
DX: D24.2 Benign neoplasm of left breast (principal); E11.9 Type 2 diabetes mellitus without complications; E55.9 Vitamin D deficiency, unspecified; E78.5 Hyperlipidemia, unspecified; F41.9 Anxiety disorder, unspecified; F32.A Depression, unspecified; R01.1 Cardiac murmur, unspecified; G47.33 Obstructive sleep apnea (adult) (pediatric); K21.9 Gastro-esophageal reflux disease without esophagitis; I10 Essential (primary) hypertension; E66.01 Morbid (severe) obesity due to excess calories; Z68.43 Body mass index [BMI] 50.0-59.9, adult; Z90.722 Acquired absence of ovaries, bilateral; Z90.710 Acquired absence of both cervix and uterus; Z98.891 History of uterine scar from previous surgery; Z90.49 Acquired absence of other specified parts of digestive tract; Z98.84 Bariatric surgery status; Z98.890 Other specified postprocedural states; Z83.49 Family history of other endocrine, nutritional and metabolic diseases; Z83.3 Family history of diabetes mellitus; Z82.49 Family history of ischemic heart disease and other diseases of the circulatory system; Z80.0 Family history of malignant neoplasm of digestive organs; Z80.8 Family history of malignant neoplasm of other organs or systems; Z79.84 Long term (current) use of oral hypoglycemic drugs; Z79.4 Long term (current) use of insulin; Z79.899 Other long term (current) drug therapy; Z88.5 Allergy status to narcotic agent; Z88.8 Allergy status to other drugs, medicaments and biological substances
CPT/HCPCS: 88305; 19301; J2250; J0330; J1100; J2175; J2405; J0690; J2001; J3010; J1885; J2370; J2704; J1170; J1644; 88307

== ENCOUNTER → 2021-12-01 | Outpatient (CLI) | payer BC ==
--- NOTE | 2021-12-01 11:23 | MM ---
Reason for Exam: Additional evaluation requested from prior study. Last screening mammogram was performed 12 month(s) ago. Patient History: Menarche at age 14. First Full-Term at age 39. Late child-bearing (after 32). Left ovary removed at age 46. Right ovary removed at age 27. Postmenopausal. Breast cancer, left, age 55. Previous chest radiation therapy at age 55. Hormonal Contraceptives for 1 year, 6 months. 01/22/2021, Lumpectomy on the Left side. 01/22/2021, Malignant Core Biopsy on the left side. 12/21/2020, Malignant Core Biopsy on the left side. Maternal aunt had breast cancer, age 42. Prior Study Comparison: 10/23/2014 Bilateral Screening Mammogram, [facility]. 11/14/2017 Bilateral Screening Mammogram, [facility]. 11/30/2020 Bilateral Screening Mammogram, [facility]. 12/08/2020 Left Diagnostic Mammogram, [facility]. Tissue Density: The breast tissue is heterogeneously dense. This may lower the sensitivity of mammography. Findings: Analyzed By CAD. Postlumpectomy changes left breast to the left breast with surgical clips in place. No new suspicious calcifications, masses or distortions. Overall Assessment: Benign, BI-RAD 2 Management: Diagnostic Mammogram of the left breast in 1 year. Screening Mammogram of the right breast in 1 year. A clinical breast exam by your physician is recommended on an annual basis and results should be correlated with mammographic findings. This exam should not preclude additional follow-up of suspicious palpable abnormalities. Results were given to the patient verbally at the time of exam. Electronically signed and approved by: Willam Anderson DO
== END | disposition home or self-care (01) ==
LOC: RADMAMWWP 10:50
PROVIDERS: ATTEND Surgery
DX: R92.8 Other abnormal and inconclusive findings on diagnostic imaging of breast (principal); Z78.0 Asymptomatic menopausal state; Z80.3 Family history of malignant neoplasm of breast
CPT/HCPCS: 77062; 77066

== ENCOUNTER 2023-06-02 09:50 | Inpatient (IN) | payer BC ==
--- NOTE | 2023-06-02 10:07 | ED ---
General Adult HPI - General Chief complaint: Recheck/Abnormal Lab/Rx Stated complaint: Chest pains Time Seen by Provider: 06/02/23 09:56 Source: patient, RN notes reviewed Mode of arrival: ambulatory Limitations: no limitations - History of Present Illness Initial comments: Patient is a pleasant 57-year-old female presenting to the emergency department from her primary care physician. Patient was a recently secondary to chest congestion. Patient has been having some chest pressure and congestion over the past 10 days, somewhat worsening. Minimal congestion upper. No fever. Patient has had cough. Patient has seen Dr. Lizarraga with cardiology and was scheduled for stress test 2 days ago however had to cancel because of the congestion. Patient did have D-dimer test that was reported to her as elevated and she was advised to come to the emergency department - Related Data Home Medications Medication Instructions Recorded Confirmed Losartan [Cozaar] 100 mg PO QAM 05/29/15 05/30/23 Insulin Regular, Human [humulin R 250 unit SQ AC-SUPPER PRN 01/23/19 05/30/23 U-500 Kwikpen] metFORMIN HCL [Glucophage] 1,000 mg PO BID 01/23/19 05/30/23 Cetirizine HCl [Zyrtec] 10 mg PO HS 01/15/21 05/30/23 Rosuvastatin [Crestor] 20 mg PO HS 01/15/21 05/30/23 Venlafaxine HCl [Effexor XR] 150 mg PO DAILY 02/26/21 05/30/23 Insulin Regular, Human [humulin R 300 unit SQ AC-TID 05/02/22 05/30/23 U-500 Kwikpen] Tirzepatide [Mounjaro] 10 mg SQ ALEXANDRA 05/02/22 05/30/23 Aspirin 81 mg PO DAILY 05/25/23 05/30/23 Unk Probiotic 1 tab PO HS 05/25/23 05/30/23 Metoprolol Succinate [Metoprolol 25 mg PO DAILY 05/30/23 05/30/23 Succinate ER] Omeprazole 40 mg PO HS 05/30/23 05/30/23 Pioglitazone HCl 15 mg PO DAILY 05/30/23 05/30/23 Allergies Allergy/AdvReac Type Severity Reaction Status Date / Time codeine AdvReac Nausea & Verified 06/02/23 09:55 Vomiting hydrocodone [From Vicodin] AdvReac Nausea & Verified 06/02/23 09:55 Vomiting Review of Systems ROS Statement: Those systems with pertinent positive or pertinent negative responses have been documented in the HPI. ROS Other: All systems not noted in ROS Statement are negative. Constitutional: Denies: fever Eyes: Denies: eye pain ENT: Denies: ear pain Respiratory: Reports: as per HPI, cough Cardiovascular: Reports: as per HPI, chest pain Endocrine: Reports: fatigue Gastrointestinal: Reports: nausea Musculoskeletal: Denies: back pain Past Medical History Past Medical History: Cancer, Diabetes Mellitus, GERD/Reflux, Hyperlipidemia, Hypertension, Sleep Apnea/CPAP/BIPAP Additional Past Medical History / Comment(s): obesity , hx anemia, mild sleep apnea (no machine), heart murmur, Has Lap Band (states no fluid), LT BREAST CANCER DX-11/2020-received radiation, Last dose 2020. Following with Dr Mabry for blood sugars. recent influenza infection - Dr Gomez aware. heart racing recently. recent stress test. History of Any Multi-Drug Resistant Organisms: None Reported Past Surgical History: Bariatric Surgery, Breast Surgery, Section, Cholecystectomy, Heart Catheterization Additional Past Surgical History / Comment(s): left breast lumpectomy 01-22-21,Lap band August 2004, rt oopherectomy 1993, Left oopherectomy 2012. Heart Cath ([facility] -Mar 2017)-clear, COLONOSCOPY Past Anesthesia/Blood Transfusion Reactions: No Reported Reaction Additional Past Anesthesia/Blood Transfusion Reaction / Comment(s): states long time to wake up.no hx blood transfusion Past Psychological History: Anxiety Smoking Status: Never smoker - Past Family History Mother Family Medical History: Cancer Additional Family Medical History / Comment(s): Rectal cancer General Exam Limitations: no limitations General appearance: alert, in no apparent distress Head exam: Present: normocephalic Eye exam: Present: normal appearance Neck exam: Present: normal inspection Respiratory exam: Present: normal lung sounds bilaterally. Absent: respiratory distress, wheezes, chest wall tenderness Cardiovascular Exam: Present: regular rate, normal rhythm, normal heart sounds Expanded Peripheral pulses: 2+: Radial (R), Radial (L) GI/Abdominal exam: Present: soft. Absent: tenderness Extremities exam: Present: normal inspection. Absent: pedal edema, calf tenderness Neurological exam: Present: alert Psychiatric exam: Present: normal affect, normal mood Skin exam: Present: normal color Course Vital Signs 06/02/23 06/02/23 06/02/23 09:51 10:38 11:15 Temperature 97.9 F Pulse Rate 74 77 64 Respiratory 18 16 16 Rate Blood Pressure 182/68 169/87 180/87 O2 Sat by Pulse 98 91 L 92 L Oximetry EKG Findings - EKG Results: EKG: interpreted by ERMD (Left axis.), sinus rhythm, normal QRS, normal ST/T Medical Decision Making - Medical Decision Making Was pt. sent in by a medical professional or institution (, PA, CONFERENCE PLANNER, urgent care, hospital, or usp...) When possible be specific @ -Patient was sent in by her primary care physician Did you speak to anyone other than the patient for history (EMS, parent, family, police, friend...)? What history was obtained from this source @ -No Did you review nursing and triage notes (agree or disagree)? Why? @ -I reviewed and agree with nursing and triage notes Were old charts reviewed (outside hosp., previous admission, EMS record, old EKG, old radiological studies, urgent care reports/EKG's, usp records)? Report findings @ -Previous labs reviewed Differential Diagnosis (chest pain, altered mental status, abdominal pain women, abdominal pain men, vaginal bleeding, weakness, fever, dyspnea, syncope, headache, dizziness, GI bleed, back pain, seizure, CVA, palpatations, mental health, musculoskeletal)? @ -Differential Chest Pain: Stable Angina, Unstable Angina, STEMI, NSTEMI Aortic Dissection, Pneumothorax, Musculoskeletal, Esophageal Spasm GERD, Cholecystitis, Pancreatitis, Zoster, this is not meant to be an all-inclusive list. EKG interpreted by me (3pts min.). @ -As above X-rays interpreted by me (1pt min.). @ -None done CT interpreted by me (1pt min.). @ -CT scan does not show pulmonary embolism small pleural effusions. U/S interpreted by me (1pt. min.). @ -None done What testing was considered but not performed or refused? (CT, X-rays, U/S, labs)? Why? @ -None What meds were considered but not given or refused? Why? @ -None Did you discuss the management of the patient with other professionals (professionals i.e. , PA, CONFERENCE PLANNER, lab, RT, psych nurse, social science research assistant, teletypist, teacher, evp chief exploration officer, shelter case manager)? Give summary @ -[facility] will admit covering Dr. Olivares Was smoking cessation discussed for >3mins.? @ -No Was critical care preformed (if so, how long)? @ -No Were there social determinants of health that impacted care today? How? (Homelessness, low income, unemployed, alcoholism, drug addiction, transportation, low edu. Level, literacy, decrease access to med. care, custodial, rehab)? @ -No Was there de-escalation of care discussed even if they declined (Discuss DNR or withdrawal of care, Hospice)? DNR status @ -No What co-morbidities impacted this encounter? (DM, HTN, Smoking, COPD, CAD, Cancer, CVA, ARF, Chemo, Hep., AIDS, mental health diagnosis, sleep apnea, mo rbid obesity)? @ -None Was patient admitted / discharged? Hospital course, mention meds given and r oute, prescriptions, significant lab abnormalities, going to OR and other pertinent info. @ -Patient reevaluated and updated. Patient has mild bump in troponin. Patient will be admitted with cardiac consult. Undiagnosed new problem with uncertain prognosis? @ -No Drug Therapy requiring intensive monitoring for toxicity (Heparin, Nitro, Insulin, Cardizem)? @ -No Were any procedures done? @ -No Diagnosis/symptom? @ -Chest pain Acute, or Chronic, or Acute on Chronic? @ -Acute Uncomplicated (without systemic symptoms) or Complicated (systemic symptoms)? @ -Default Side effects of treatment? @ -No Exacerbation, Progression, or Severe Exacerbation? @ -No Poses a threat to life or bodily function? How? (Chest pain, [place], [place], pneumonia, PE, COPD, DKA, ARF, appy, cholecystitis, CVA, Diverticulitis, Homicidal, Suicidal, threat to staff... and all critical care pts) @ -No - Lab Data Result diagrams: 06/02/23 10:15 06/02/23 10:15 Lab Results 06/02/23 06/02/23 06/02/23 Range/Units 10:15 10:15 10:15 WBC 8.7 (3.8-10.6) k/uL RBC 4.60 (3.80-5.40) m/uL Hgb 12.3 (11.4-16.0) gm/dL Hct 38.5 (34.0-46.0) % MCV 83.9 (80.0-100.0) fL MCH 26.7 (25.0-35.0) pg MCHC 31.9 (31.0-37.0) g/dL RDW 15.5 (11.5-15.5) % Plt Count 215 (150-450) k/uL MPV 7.6 Neutrophils % 68 % Lymphocytes % 22 % Monocytes % 5 % Eosinophils % 3 % Basophils % 1 % Neutrophils # 5.9 (1.3-7.7) k/uL Lymphocytes # 1.9 (1.0-4.8) k/uL Monocytes # 0.4 (0-1.0) k/uL Eosinophils # 0.3 (0-0.7) k/uL Basophils # 0.1 (0-0.2) k/uL PT 10.7 (10.0-12.5) sec INR 1.0 (<1.2) APTT 23.6 (22.0-30.0) sec Sodium 136 L (137-145) mmol/L Potassium 4.6 (3.5-5.1) mmol/L Chloride 102 (98-107) mmol/L Carbon Dioxide 23 (22-30) mmol/L Anion Gap 11 mmol/L BUN 11 (7-17) mg/dL Creatinine 0.48 L (0.52-1.04) mg/dL Est GFR (CKD-EPI)AfAm >90 (>60 ml/min/1.73 sqM) Est GFR (CKD-EPI)NonAf >90 (>60 ml/min/1.73 sqM) Glucose 351 H (74-99) mg/dL Calcium 9.6 (8.4-10.2) mg/dL Magnesium 1.4 L (1.6-2.3) mg/dL Total Bilirubin 0.8 (0.2-1.3) mg/dL AST 36 (14-36) U/L ALT 26 (4-34) U/L Alkaline Phosphatase 108 (38-126) U/L Troponin I (0.000-0.034) ng/mL NT-Pro-B Natriuret Pep 382 pg/mL Total Protein 7.8 (6.3-8.2) g/dL Albumin 4.2 (3.5-5.0) g/dL Influenza Type A (PCR) (Not Detectd) Influenza Type B (PCR) (Not Detectd) RSV (PCR) (Not Detectd) SARS-CoV-2 (PCR) (Not Detectd) 06/02/23 06/02/23 Range/Units 10:15 10:16 WBC (3.8-10.6) k/uL RBC (3.80-5.40) m/uL Hgb (11.4-16.0) gm/dL Hct (34.0-46.0) % MCV (80.0-100.0) fL MCH (25.0-35.0) pg MCHC (31.0-37.0) g/dL RDW (11.5-15.5) % Plt Count (150-450) k/uL MPV Neutrophils % % Lymphocytes % % Monocytes % % Eosinophils % % Basophils % % Neutrophils # (1.3-7.7) k/uL Lymphocytes # (1.0-4.8) k/uL Monocytes # (0-1.0) k/uL Eosinophils # (0-0.7) k/uL Basophils # (0-0.2) k/uL PT (10.0-12.5) sec INR (<1.2) APTT (22.0-30.0) sec Sodium (137-145) mmol/L Potassium (3.5-5.1) mmol/L Chloride (98-107) mmol/L Carbon Dioxide (22-30) mmol/L Anion Gap mmol/L BUN (7-17) mg/dL Creatinine (0.52-1.04) mg/dL Est GFR (CKD-EPI)AfAm (>60 ml/min/1.73 sqM) Est GFR (CKD-EPI)NonAf (>60 ml/min/1.73 sqM) Glucose (74-99) mg/dL Calcium (8.4-10.2) mg/dL Magnesium (1.6-2.3) mg/dL Total Bilirubin (0.2-1.3) mg/dL AST (14-36) U/L ALT (4-34) U/L Alkaline Phosphatase (38-126) U/L Troponin I 0.054 H* (0.000-0.034) ng/mL NT-Pro-B Natriuret Pep pg/mL Total Protein (6.3-8.2) g/dL Albumin (3.5-5.0) g/dL Influenza Type A (PCR) Not Detected (Not Detectd) Influenza Type B (PCR) Not Detected (Not Detectd) RSV (PCR) Not Detected (Not Detectd) SARS-CoV-2 (PCR) Not Detected (Not Detectd) Disposition Clinical Impression: Chest pain Disposition: ADMITTED IP TO THIS HOSP Is patient prescribed a controlled substance at d/c from ED?: No Referrals: Quinn Olivares DO [Primary Care Provider] - 1-2 days Time of Disposition: 11:52
[2023-06-02 10:29] LABS: Basophils # (A) 0.1 k/uL (0-0.2); Basophils % (A) 1 %; Eosinophils # (A) 0.3 k/uL (0-0.7); Eosinophils % (A) 3 %; HCT 38.5 % (34.0-46.0); HGB 12.3 gm/dL (11.4-16.0); Lymphocytes # (A) 1.9 k/uL (1.0-4.8); Lymphocytes % (A) 22 %; MCH 26.7 pg (25.0-35.0); MCHC 31.9 g/dL (31.0-37.0); MCV 83.9 fL (80.0-100.0); Mean Platelet Volume 7.6; Monocytes # (A) 0.4 k/uL (0-1.0); Monocytes % (A) 5 %; Neutrophils # (A) 5.9 k/uL (1.3-7.7); Neutrophils % (A) 68 %; Platelet Count 215 k/uL (150-450); RDW 15.5 % (11.5-15.5); WBC 8.7 k/uL (3.8-10.6)
[2023-06-02] MEDS: ASPIRIN 81 MG PO STA (10:33)
[2023-06-02] MEDS: NITROGLYCERIN OINT 1 INCH/GM PACKET TOPICAL STA (10:34)
[2023-06-02 10:41] LABS: Partial Thromboplastin Time 23.6 sec (22.0-30.0); Prothrombin Time 10.7 sec (10.0-12.5)
[2023-06-02 10:43] LABS: ALT 26 U/L (4-34); African American GFR (CKD) >90 (>60 ml/min/1.73 sqM); Albumin 4.2 g/dL (3.5-5.0); Anion Gap 11 mmol/L; Blood Urea Nitrogen 11 mg/dL (7-17); Calcium 9.6 mg/dL (8.4-10.2); Carbon Dioxide 23 mmol/L (22-30); Chloride 102 mmol/L (98-107); Glucose 351 mg/dL (74-99); Non-African American GFR(CKD) >90 (>60 ml/min/1.73 sqM); Sodium 136 mmol/L (137-145); Total Bilirubin 0.8 mg/dL (0.2-1.3); Total Protein 7.8 g/dL (6.3-8.2)
[2023-06-02 10:49] LABS: AST 36 U/L (14-36); Alkaline Phosphatase 108 U/L (38-126); Magnesium 1.4 mg/dL (1.6-2.3); Potassium 4.6 mmol/L (3.5-5.1)
[2023-06-02 10:51] LABS: NT-Pro-B-Type Natriuretic Pept 382 pg/mL
--- NOTE | 2023-06-02 11:22 | CT ---
Exam: CT Angiography of the Chest. Date: 06/02/2023. Comparison: None History: Chest pressure and elevated d-dimer. Technique: CT examination of the chest was performed following the intravenous administration of 85 m L of Isovue-[id number]. CT dose lowering techniques were used, to include: automated exposure control, adjus tment for patient size, and/or use of iterative reconstruction. FINDINGS: Mediastinum and Alexa: There is no axillary, mediastinal or hilar lymphadenopathy. Pleural and Pericardial spaces: There are small bilateral pleural effusions. Upper Abdomen: There is a laparoscopic band around the gastroesophageal junction. Visualized upper ab domen otherwise appears unremarkable. Cardiovascular: The thoracic aorta is normal in size without evidence of aneurysm or dissection. Pulmonary Artery: There are no filling defects in the pulmonary arteries. Lung Parenchyma and Airways: Mild mosaic attenuation of the lungs as well as some septal thickening i s suggestive of mild pulmonary edema. Bones: No fracture or aggressive osseous lesion. IMPRESSION: 1. No definitive evidence of pulmonary and was in a seen at this time. 2. No evidence of thoracic aortic aneurysm or dissection. 3. Small bilateral pleural effusions. 4. Mild cardiomegaly with small bilateral pleural effusions and suspected mild edema.
[2023-06-02] MEDS ORDERED: NITROGLYCERIN SL TABS 0.4 MG TAB SUBLINGUAL PRN (11:58)
[2023-06-02] MEDS ORDERED: Magnesium Replacement Protocol 1 EACH MISC MISCELLANE PRN (12:10)
[2023-06-02 12:18] LABS: Glucose,Whole Blood 366 mg/dL (70-110)
[2023-06-02] MEDS: NITROGLYCERIN OINT 1 INCH/GM PACKET TOPICAL SCH (13:19)
--- NOTE | 2023-06-02 13:39 | P.CRDCN ---
History of Present Illness Consult date: 06/02/23 Consult reason: chest pain History of present illness: History of present illness: This is a 57-year-old female patient of Dr. Parra with past medical history of recently diagnosed cardiomyopathy, diabetes, hypertension, dyslipidemia, family history of premature coronary artery disease. Patient was recently seen in the office on 05/23 at which time she was scheduled for cardiac catheterization on 05/30. However, patient developed chest congestion and the catheterization was canceled. Patient states she has followed up with her PCP for cough and congestion did blood work in the office and placed on some medications including antibiotics and steroid pack. She subsequently received a call from her PCP that her D-dimer was elevated and she was sent into the hospital for further evaluation. CTA came back negative for pulmonary embolism. Patient denies having any chest pain but has had shortness of breath for at least 10 days worse the past 7 days. She has dyspnea on exertion. No edema, no PND. No history of smoking.. EKG sinus rhythm with no acute changes CTA of the chest revealed no definitive evidence of pulmonary embolism. No evidence of thoracic aortic aneurysm or dissection. Small bilateral pleural effusions. CBC, INR normal. Sodium 136, creatinine 0.48. Blood sugar 351. Magnesium 1.4. Troponin 0.054. Liver function test are normal. proBNP 382. Influenza A, influenza B, RSV, COVID-19 not detected. Home cardiac medications: Aspirin 81 mg daily, losartan 100 mg daily, metoprolol succinate 25 mg daily, Crestor 20 mg at bedtime Echocardiogram performed on 05/11/2023 revealed EF of 40%. Mild aortic stenosis. Mild to mod regurgitation. Mild tricuspid regurgitation. Moderate increased pulmonary artery systolic pressure of 48 mmHg. Lexiscan Cardiolite stress test performed on 05/11/2023 was negative by EKG criteria. Abnormal nuclear scan showing ischemic cardiomyopathy with EF 30% and fixed anterior wall defect secondary to prior CT. Review Of Systems: At the time of my exam: CONSTITUTIONAL: Denies fever or chills. Reports fatigue HEENT: Denies blurred vision, vision changes, or eye pain. Denies hemoptysis CARDIOVASCULAR: Denies chest pain. Denies orthopnea. Denies PND. Denies palpitations RESPIRATORY: Reports shortness of breath. Reports dyspnea on exertion. GASTROINTESTINAL: Denies abdominal pain. Denies nausea or vomiting. HEMATOLOGIC: Denies bleeding disorders. GENITOURINARY: Denies any blood in urine. SKIN: Denies pruitis. Denies rash. Physical examination: Gen: This is a 57-year-old morbidly obese female in no acute distress VS: reviewed HEENT: Head is atraumatic, normocephalic. Pupils equal, round. Sclerae is anicteric. NECK: Supple. No JVD. LUNGS: Clear to auscultation. No wheezes or rhonchi. No intercostal retractions. HEART: Regular rate and rhythm. Systolic murmur. ABDOMEN: Soft No tenderness. EXTREMITIES: No pedal edema. No calf tenderness. NEUROLOGICAL: Patient is awake, alert and oriented x3. Assessment: Dyspnea on exertion and fatigue and abnormal Lexiscan stress test rule out coronary artery disease Cardiomyopathy of unclear etiology Diabetes mellitus type 2 Hypertension Hyperlipidemia Family history of premature coronary artery disease Plan: Resume patient's home cardiac medications Start patient on heparin drip No need to repeat echocardiogram Complete series of 3 troponins Depending on patient's course overnight, may be scheduled for cardiac catheterization tomorrow. Further recommendations to follow based upon clinical course Thank you kindly for this consultation. Nurse practitioner note has been reviewed, I agree with documented findings and plan of care. Patient was seen and examined. Past Medical History Past Medical History: Cancer, Diabetes Mellitus, GERD/Reflux, Hyperlipidemia, Hypertension, Sleep Apnea/CPAP/BIPAP Additional Past Medical History / Comment(s): obesity , hx anemia, mild sleep apnea (no machine), heart murmur, Has Lap Band (states no fluid), LT BREAST CANCER DX-11/2020-received radiation, Last dose 2020. Following with Dr Mabry for blood sugars. recent influenza infection - Dr Gomez aware. heart racing recently. recent stress test. History of Any Multi-Drug Resistant Organisms: None Reported Past Surgical History: Bariatric Surgery, Breast Surgery, Section, Cholecystectomy, Heart Catheterization Additional Past Surgical History / Comment(s): left breast lumpectomy 01-22-21,Lap band August 2004, rt oopherectomy 1993, Left oopherectomy 2012. Heart Cath ([facility] -Mar 2017)-clear, COLONOSCOPY Past Anesthesia/Blood Transfusion Reactions: No Reported Reaction Additional Past Anesthesia/Blood Transfusion Reaction / Comment(s): states long time to wake up.no hx blood transfusion Past Psychological History: Anxiety Smoking Status: Never smoker - Past Family History Mother Family Medical History: Cancer Additional Family Medical History / Comment(s): Rectal cancer Medications and Allergies Home Medications Medication Instructions Recorded Confirmed Type metFORMIN HCL [Glucophage] 1,000 mg PO BID 01/23/19 06/02/23 History Cetirizine HCl [Zyrtec] 10 mg PO HS 01/15/21 06/02/23 History Venlafaxine HCl [Effexor XR] 150 mg PO DAILY 02/26/21 06/02/23 History Insulin Regular, Human [humulin R 300 unit SQ AC-TID 05/02/22 06/02/23 History U-500 Kwikpen] Aspirin 81 mg PO DAILY 05/25/23 06/02/23 History Metoprolol Succinate [Metoprolol 25 mg PO DAILY 05/30/23 06/02/23 History Succinate ER] Omeprazole 40 mg PO HS PRN 05/30/23 06/02/23 History Pioglitazone HCl 15 mg PO DAILY 05/30/23 06/02/23 History ALPRAZolam [Xanax] 0.25 mg PO BID PRN 06/02/23 06/02/23 History Albuterol Sulfate [Albuterol 2 puff PO RT-Q4H PRN 06/02/23 06/02/23 History Sulfate Hfa] Benzonatate [Tessalon Perle] 200 mg PO TID PRN 06/02/23 06/02/23 History Dm/Acetaminophen/Doxylamine [Vicks 30 ml PO Q4H PRN 06/02/23 06/02/23 History Nyquil Cold-Flu Liquid] Doxycycline Hyclate 100 mg PO BID 06/02/23 06/02/23 History Ibuprofen [Advil] 600 mg PO Q6HR PRN 06/02/23 06/02/23 History Losartan Potassium [Cozaar] 100 mg PO DAILY 06/02/23 06/02/23 History Rosuvastatin [Crestor] 20 mg PO HS 06/02/23 06/02/23 History methylPREDNISolone Dose Pack See Taper PO DIRECTED 06/02/23 06/02/23 History [Medrol Dose Pack] Allergies Allergy/AdvReac Type Severity Reaction Status Date / Time codeine AdvReac Nausea & Verified 06/02/23 11:52 Vomiting hydrocodone [From Vicodin] AdvReac Nausea & Verified 06/02/23 11:52 Vomiting Physical Exam Vitals: Vital Signs Temp Pulse Resp BP Pulse Ox 06/02/23 12:00 66 16 178/97 92 L 06/02/23 11:15 64 16 180/87 92 L 06/02/23 10:38 77 16 169/87 91 L 06/02/23 09:51 97.9 F 74 18 182/68 98 Intake and Output 06/01/23 06/02/23 06/02/23 22:59 06:59 14:59 Other: Weight 147.418 kg Results 06/02/23 10:15 06/02/23 10:15 Cardiac Enzymes 06/02/23 06/02/23 Range/Units 10:15 10:15 AST 36 (14-36) U/L Troponin I 0.054 H* (0.000-0.034) ng/mL Coagulation 06/02/23 Range/Units 10:15 PT 10.7 (10.0-12.5) sec APTT 23.6 (22.0-30.0) sec CBC 06/02/23 Range/Units 10:15 WBC 8.7 (3.8-10.6) k/uL RBC 4.60 (3.80-5.40) m/uL Hgb 12.3 (11.4-16.0) gm/dL Hct 38.5 (34.0-46.0) % Plt Count 215 (150-450) k/uL Comprehensive Metabolic Panel 06/02/23 Range/Units 10:15 Sodium 136 L (137-145) mmol/L Potassium 4.6 (3.5-5.1) mmol/L Chloride 102 (98-107) mmol/L Carbon Dioxide 23 (22-30) mmol/L BUN 11 (7-17) mg/dL Creatinine 0.48 L (0.52-1.04) mg/dL Glucose 351 H (74-99) mg/dL Calcium 9.6 (8.4-10.2) mg/dL AST 36 (14-36) U/L ALT 26 (4-34) U/L Alkaline Phosphatase 108 (38-126) U/L Total Protein 7.8 (6.3-8.2) g/dL Albumin 4.2 (3.5-5.0) g/dL Current Medications Generic Name Dose Route Start Last Admin Trade Name Freq PRN Reason Stop Dose Admin Aspirin 81 mg 06/02/23 13:00 Aspirin 81 Mg PO DAILY [facility] Magnesium Sulfate/Dextrose 1 100 mls @ 100 mls/hr 06/02/23 12:30 gm/ IV Solution IVPB 06/02/23 14:29 Q1H KYLE Protocol Metoprolol Succinate 25 mg 06/02/23 13:00 Metoprolol Succinate (Er) 25 Mg Tab.Er.24h PO DAILY [facility] Miscellaneous Information 1 each 06/02/23 12:10 Magnesium Replacement Protocol 1 Each Misc MISCELLANE DAILY PRN Per Protocol Protocol Nitroglycerin 0.4 mg 06/02/23 11:58 Nitroglycerin Sl Tabs 0.4 Mg Tab SUBLINGUAL Q5M PRN Chest Pain Nitroglycerin 1 inch 06/02/23 12:00 Nitroglycerin Oint 1 Inch/Gm Packet TOPICAL Q6HR [facility] Non-Formulary Medication 100 mg 06/02/23 13:00 Losartan Potassium [Cozaar] PO DAILY [facility] Non-Formulary Medication 20 mg 06/02/23 21:00 Rosuvastatin PO HS [facility] Intake and Output 06/01/23 06/02/23 06/02/23 22:59 06:59 14:59 Other: Weight 147.418 kg Patient Weight 06/03/23 06:59 Weight 147.418 kg 06/02/23 10:15 06/02/23 10:15
[2023-06-02] MEDS ORDERED: DEXTROSE 50% SYRINGE 50 ML IVP PRN ×2 (14:34)
[2023-06-02] MEDS ORDERED: BENZONATATE 100 MG CAP PO PRN (14:35)
[2023-06-02] MEDS ORDERED: ALBUTEROL NEBULIZED 2.5 MG/3 ML INHALATION PRN (14:35)
--- NOTE | 2023-06-02 14:36 | P.HPIM ---
History of Present Illness H&P Date: 06/02/23 History of present illness; patient is a 57-year-old lady with past medical significant for diabetes mellitus, hypertension, cardiomyopathy, hyperlipidemia who presented to the ER for chest congestion and chest pressure. Patient stated that she was all right 10 days back when he started noticing that she was getting chest pressure that was brought on by exertion, chest pain was central location, nonradiating, no aggravating or relieving factor associated with this pressure. Patient was complaining of shortness of breath on exertion. There was no complaint of palpitation. Patient also felt as if her chest were congested. There was no complaint of fever or chills. There was no complaint of lightheadedness or dizziness. Denies any nausea, vomiting or abdominal pain. Because of this chest pressure and congestion, patient saw her PCP who ordered some blood work that showed patient to have elevated D-dimer and for that patient was told to come to the ER for further evaluation. Patient was also supposed to get outpatient heart cath on 05/30 but was canceled for patient not feeling well. Initial lab work done in the ER showed showed WBC 8.7, hemoglobin 12.2, platelet count 215, sodium 136, potassium 4.6, BUN 11, creatinine 0.48, glucose 351, magnesium 1.4 Influenza A not detected Influenza B not detected RSV not detected COVID-19 not detected EKG done in the ER showed heart rate of 89, no ST segment elevation or depression seen, no T-wave inversions seen. CT chest done showed no PE, no evidence of thoracic aortic aneurysm or dissection Patient admitted to internal medicine service REVIEW OF SYSTEMS: CONSTITUTIONAL: No fever, no malaise, no fatigue. HEENT: No recent visual problems or hearing problems. Denied any sore throat. CARDIOVASCULAR: As mentioned HPI PULMONARY: As mentioned HPI GASTROINTESTINAL: No diarrhea, no nausea, no vomiting, no abdominal pain. NEUROLOGICAL: No headaches, no weakness, no numbness. HEMATOLOGICAL: Denies any bleeding or petechiae. GENITOURINARY: Denies any burning micturition, frequency, or urgency. MUSCULOSKELETAL/RHEUMATOLOGICAL: Denies any joint pain, swelling, or any muscle pain. ENDOCRINE: Denies any polyuria or polydipsia. The rest of the 14-point review of systems is negative. PHYSICAL EXAMINATION: GENERAL: The patient is alert and oriented x3, not in any acute distress. Well developed, well nourished. HEENT: Pupils are round and equally reacting to light. EOMI. No scleral icterus. No conjunctival pallor. Normocephalic, atraumatic. No pharyngeal erythema. No thyromegaly. CARDIOVASCULAR: S1 and S2 present. No murmurs, rubs, or gallops. PULMONARY: Chest is clear to auscultation, no wheezing or crackles. ABDOMEN: Soft, nontender, nondistended, normoactive bowel sounds. No palpable organomegaly. MUSCULOSKELETAL: No joint swelling or deformity. EXTREMITIES: No cyanosis, clubbing, or pedal edema. NEUROLOGICAL: Gross neurological examination did not reveal any focal deficits. SKIN: No rashes. Assessment and plan Elevated troponin Dyspnea on exertion Hypomagnesemia Cardiomyopathy of unclear etiology Diabetes mellitus type 2 Hypertension Hyperlipidemia Monitor vital signs Monitor CBC Monitor CMP Continue telemetry monitoring Trend troponins. Continue pharmacy to dose heparin Continue aspirin, Lipitor Resume breathing treatments Monitor blood sugar levels, continue sliding scale insulin. Consult cardiology Labs and medication were reviewed.. Continue same treatment. Continue with sym ptomatic treatment. Resume home medication. Monitor labs and vitals. DVT and GI prophylaxis. Further recommendations as per clinical course of the patient Dictation was produced using [employer] dictation software. please excuse any grammatical, word or spelling errors. Past Medical History Past Medical History: Cancer, Diabetes Mellitus, GERD/Reflux, Hyperlipidemia, Hypertension, Sleep Apnea/CPAP/BIPAP Additional Past Medical History / Comment(s): obesity , hx anemia, mild sleep apnea (no machine), heart murmur, Has Lap Band (states no fluid), LT BREAST CANCER DX-11/2020-received radiation, Last dose 2020. Following with Dr Mabry for blood sugars. recent influenza infection - Dr Gomez aware. heart racing recently. recent stress test. History of Any Multi-Drug Resistant Organisms: None Reported Past Surgical History: Bariatric Surgery, Breast Surgery, Section, Cholecystectomy, Heart Catheterization Additional Past Surgical History / Comment(s): left breast lumpectomy 01-22-21,Lap band August 2004, rt oopherectomy 1993, Left oopherectomy 2012. Heart Cath ([facility] -Mar 2017)-clear, COLONOSCOPY Past Anesthesia/Blood Transfusion Reactions: No Reported Reaction Additional Past Anesthesia/Blood Transfusion Reaction / Comment(s): states long time to wake up.no hx blood transfusion Past Psychological History: Anxiety Smoking Status: Never smoker - Past Family History Mother Family Medical History: Cancer Additional Family Medical History / Comment(s): Rectal cancer Medications and Allergies Home Medications Medication Instructions Recorded Confirmed Type metFORMIN HCL [Glucophage] 1,000 mg PO BID 01/23/19 06/02/23 History Cetirizine HCl [Zyrtec] 10 mg PO HS 01/15/21 06/02/23 History Venlafaxine HCl [Effexor XR] 150 mg PO DAILY 02/26/21 06/02/23 History Insulin Regular, Human [humulin R 300 unit SQ AC-TID 05/02/22 06/02/23 History U-500 Kwikpen] Aspirin 81 mg PO DAILY 05/25/23 06/02/23 History Metoprolol Succinate [Metoprolol 25 mg PO DAILY 05/30/23 06/02/23 History Succinate ER] Omeprazole 40 mg PO HS PRN 05/30/23 06/02/23 History Pioglitazone HCl 15 mg PO DAILY 05/30/23 06/02/23 History ALPRAZolam [Xanax] 0.25 mg PO BID PRN 06/02/23 06/02/23 History Albuterol Sulfate [Albuterol 2 puff PO RT-Q4H PRN 06/02/23 06/02/23 History Sulfate Hfa] Benzonatate [Tessalon Perle] 200 mg PO TID PRN 06/02/23 06/02/23 History Dm/Acetaminophen/Doxylamine [Vicks 30 ml PO Q4H PRN 06/02/23 06/02/23 History Nyquil Cold-Flu Liquid] Doxycycline Hyclate 100 mg PO BID 06/02/23 06/02/23 History Ibuprofen [Advil] 600 mg PO Q6HR PRN 06/02/23 06/02/23 History Losartan Potassium [Cozaar] 100 mg PO DAILY 06/02/23 06/02/23 History Rosuvastatin [Crestor] 20 mg PO HS 06/02/23 06/02/23 History methylPREDNISolone Dose Pack See Taper PO DIRECTED 06/02/23 06/02/23 History [Medrol Dose Pack] Allergies Allergy/AdvReac Type Severity Reaction Status Date / Time codeine AdvReac Nausea & Verified 06/02/23 11:52 Vomiting hydrocodone [From Vicodin] AdvReac Nausea & Verified 06/02/23 11:52 Vomiting Physical Exam Vitals: Vital Signs Temp Pulse Resp BP Pulse Ox 06/02/23 12:00 66 16 178/97 92 L 06/02/23 11:15 64 16 180/87 92 L 06/02/23 10:38 77 16 169/87 91 L 06/02/23 09:51 97.9 F 74 18 182/68 98 Intake and Output 06/01/23 06/02/23 06/02/23 22:59 06:59 14:59 Other: Weight 147.418 kg Results CBC & Chem 7: 06/02/23 10:15 06/02/23 10:15 Labs: Abnormal Lab Results - Last 24 Hours (Table) 06/02/23 06/02/23 06/02/23 Range/Units 10:15 10:15 12:17 Sodium 136 L (137-145) mmol/L Creatinine 0.48 L (0.52-1.04) mg/dL Glucose 351 H (74-99) mg/dL POC Glucose (mg/dL) 366 H (70-110) mg/dL Magnesium 1.4 L (1.6-2.3) mg/dL Troponin I 0.054 H* (0.000-0.034) ng/mL 06/02/23 Range/Units 12:56 Sodium (137-145) mmol/L Creatinine (0.52-1.04) mg/dL Glucose (74-99) mg/dL POC Glucose (mg/dL) (70-110) mg/dL Magnesium (1.6-2.3) mg/dL Troponin I 0.063 H* (0.000-0.034) ng/mL
[2023-06-02] MEDS: ACETAMINOPHEN TAB 325 MG TAB PO PRN (14:46)
[2023-06-02] MEDS: METOPROLOL SUCCINATE (ER) 25 MG TAB.ER.24H PO SCH (14:47)
[2023-06-02] MEDS: LOSARTAN 50 MG TAB PO SCH (14:47)
[2023-06-02 14:48] LABS: Partial Thromboplastin Time 23.6 sec (22.0-30.0); Prothrombin Time 10.9 sec (10.0-12.5)
[2023-06-02 14:50] LABS: Basophils # (A) 0.1 k/uL (0-0.2); Basophils % (A) 1 %; Eosinophils # (A) 0.3 k/uL (0-0.7); Eosinophils % (A) 3 %; HCT 39.4 % (34.0-46.0); HGB 12.1 gm/dL (11.4-16.0); Hypochromasia Marked; Lymphocytes # (A) 1.8 k/uL (1.0-4.8); Lymphocytes % (A) 20 %; MCH 26.6 pg (25.0-35.0); MCHC 30.7 g/dL (31.0-37.0); MCV 86.6 fL (80.0-100.0); Monocytes # (A) 0.5 k/uL (0-1.0); Monocytes % (A) 5 %; Neutrophils # (A) 6.5 k/uL (1.3-7.7); Neutrophils % (A) 70 %; Platelet Count 206 k/uL (150-450); RBC 4.55 m/uL (3.80-5.40); RDW 15.6 % (11.5-15.5); WBC 9.2 k/uL (3.8-10.6)
[2023-06-02] MEDS: INSULIN ASPART (NovoLOG) 100 UNIT/ML VIAL SQ SCH (15:40)
[2023-06-02] MEDS: HEPARIN SOD,PORK IN 0.45% NACL 25,000 UNIT in 0.45% NACL 1 250ML.BAG IV SCH (16:28)
[2023-06-02] MEDS: MAGNESIUM SULFATE-D5W PMX 1 GM in DEXTROSE/WATER 1 100ML.BAG IVPB SCH (16:28)
[2023-06-02] MEDS: HEPARIN SODIUM 1,000 UN/ML (10ML VL) IV ONE (16:29)
[2023-06-02 16:34] LABS: Glucose,Whole Blood 326 mg/dL (70-110)
[2023-06-02] MEDS ORDERED: INSULIN ASPART (NovoLOG) 100 UNIT/ML VIAL SQ SCH (17:30)
[2023-06-02] MEDS: LORATADINE 10 MG TAB PO SCH (19:35)
[2023-06-02] MEDS: ATORVASTATIN 40 MG TAB PO SCH (19:35)
[2023-06-02 19:48] LABS: Glucose,Whole Blood 387 mg/dL (70-110)
[2023-06-02] MEDS: HEPARIN SODIUM 1,000 UN/ML (10ML VL) IV PRN (23:22)
[2023-06-02] MEDS: ALPRAZolam 0.25 MG TAB PO PRN (23:22)
[2023-06-03 06:16] LABS: Glucose,Whole Blood 355 mg/dL (70-110)
[2023-06-03] MEDS: VENLAFAXINE HCL ER 150 MG CAP PO SCH (08:23)
[2023-06-03] MEDS: ASPIRIN 81 MG PO SCH (08:24)
[2023-06-03] MEDS ORDERED: ASPIRIN 325 MG TAB PO SCH (09:00)
[2023-06-03 09:17] LABS: Basophils # (A) 0.1 k/uL (0-0.2); Basophils % (A) 1 %; Eosinophils # (A) 0.2 k/uL (0-0.7); Eosinophils % (A) 2 %; HCT 36.1 % (34.0-46.0); HGB 11.6 gm/dL (11.4-16.0); Hypochromasia Slight; Lymphocytes # (A) 1.7 k/uL (1.0-4.8); Lymphocytes % (A) 19 %; MCH 26.9 pg (25.0-35.0); Mean Platelet Volume 8.2; Monocytes # (A) 0.4 k/uL (0-1.0); Monocytes % (A) 5 %; Neutrophils # (A) 6.6 k/uL (1.3-7.7); Neutrophils % (A) 73 %; Platelet Count 224 k/uL (150-450); RDW 15.7 % (11.5-15.5); WBC 9.1 k/uL (3.8-10.6)
[2023-06-03 09:27] LABS: Partial Thromboplastin Time 37.3 sec (22.0-30.0)
[2023-06-03 09:43] LABS: Magnesium 1.8 mg/dL (1.6-2.3)
[2023-06-03 11:46] LABS: Glucose,Whole Blood 445 mg/dL (70-110)
[2023-06-03] MEDS ORDERED: VERAPAMIL 2.5 MG/ML 2 ML AMP ONE (12:32)
[2023-06-03] MEDS ORDERED: LIDOCAINE 1% INJ 10MG/ML (20 ML MDV) ONE (12:32)
[2023-06-03] MEDS ORDERED: HEPARIN SODIUM 1,000 UN/ML (10ML VL) ONE ×2 (12:40→13:11)
[2023-06-03] MEDS ORDERED: fentaNYL (PF) 50 MCG/ML 2 ML AMP ONE (12:40)
[2023-06-03 13:24] LABS: Chol/HDL Ratio 3.39 Ratio; LDL Cholesterol,Calculated 91.2 mg/dL (0.0-131.0)
[2023-06-03] MEDS: fentaNYL (PF) 50 MCG/1 ML VIAL IVP ONE (13:31)
[2023-06-03] MEDS: LIDOCAINE 1% INJ 10MG/ML (5 ML VIAL-PF) SQ ONE (13:31)
[2023-06-03] MEDS: MIDAZOLAM 2 MG/2 ML VIAL IVP ONE (13:31)
[2023-06-03] MEDS: VERAPAMIL 2.5 MG/ML 4 ML VIAL INTRAARTER ONE (13:35)
[2023-06-03] MEDS: HEPARIN SODIUM 1,000 UN/ML (10ML VL) IVP ONE (13:37)
[2023-06-03] MEDS ORDERED: NITROGLYCERIN SL TABS 0.4 MG TAB SUBLINGUAL ONE (13:38)
[2023-06-03] MEDS: NITROGLYCERIN SL TABS 0.4 MG TAB SUBLINGUAL ONE (13:40)
[2023-06-03] MEDS ORDERED: RX INFO: IV CONTRAST WAS GIVEN 1 EACH MISC MISCELLANE PRN (13:55)
[2023-06-03] MEDS: SODIUM CHLORIDE 0.9% 1,000 ML IV ONE (14:01)
[2023-06-03] MEDS: IOPAMIDOL-370 100ML BTL INTRATHECA ONE (14:01)
--- NOTE | 2023-06-03 14:03 | P.CARDCATH ---
Date of Procedure: 06/03/23 Description of Procedure: Cardiac Catheterization: The patient is a 57-year-old female with known history of hypertension, hyperlipidemia and diabetes who has been complaining of progressive dyspnea and episodes of chest discomfort. She was seen by Dr. Gomez and was found to have evidence of cardiomyopathy. She presented to the hospital and had mild troponin elevation. Recommendations were made regarding cardiac catheterization, the risks and the complications were discussed with the patient who is in full understanding and agreement. 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 Using Xylocaine Anesthesia and modified Seldinger technique, a 6-Spanish sheath was introduced in the right radial artery . Subsequently, selective coronary angiography was performed using a 5-Spanish 3.5 bend Marcial catheter. Multiple views of the coronary artery including hemiaxial views were obtained. The 5 Spanish pigtail catheter was used to cross the aortic valve and LVEDP was calculated. An TIAN view of the left ventricle was performed. Following that, catheter and sheath were removed. Hemostasis was obtained with deployment of vascular band . There was no immediate complication. Patient was returned to room in stable condition. Of note, the patient received a total of 5000 units of intravenous heparin as well as intra-arterial verapamil. Findings: Left main: This is a large size vessel, bifurcating into LAD and left circumflex, left main has no obstructive disease LAD: This is a large size vessel, reaching to the apex, giving rise to a diagonal branch of moderate caliber. The mid LAD has mild plaque of 20 to 30% Left circumflex: This is a large size vessel giving rise to 3 large obtuse marginal branch, the second one is the largest. The left circumflex and its br anches have no evidence of obstructive disease. RCA: This is a dominant vessel large in caliber bifurcating into PDA and PLV, the right coronary artery and its branches have no evidence of obstructive disease Left Ventriculogram: Performed in the TIAN view and revealed dilated left ventricle with severe global hypokinesis, the estimated ejection fraction 35 to 40% Hemodynamics: There was no gradient across the aortic valve, LVEDP was 30-35 mmHg Conclusion: 1. Mild obstructive disease in the mid LAD 2. Right dominance 3. Elevated LVEDP 4. Severely impaired low ventricle systolic function Recommendations: The patient has evidence of nonischemic cardiomyopathy. I would recommend to maximize her treatment with close follow-up of her ejection fraction and depending on that further recommendations will be made. The importance of aggressive treatment was discussed with her and her family. The findings and the recommendations were discussed with the patient and the family and they were in full understanding and agreement. Duration of sedation is 17 minutes.
[2023-06-03 14:12] VITALS: RESP 16
[2023-06-03 14:41] LABS: Glucose,Whole Blood 347 mg/dL (70-110)
[2023-06-03] MEDS: SODIUM CHLORIDE 0.9% 1,000 ML IV SCH (15:00)
--- NOTE | 2023-06-03 15:00 | P.PN ---
Subjective Progress Note Date: 06/03/23 * 57-year-old lady with past medical significant for diabetes mellitus, hypertension, cardiomyopathy, hyperlipidemia who presented to the ER for chest congestion and chest pressure. Patient stated that she was all right 10 days back when he started noticing that she was getting chest pressure that was bro ught on by exertion, chest pain was central location, nonradiating, no aggravating or relieving factor associated with this pressure. Patient was complaining of shortness of breath on exertion. There was no complaint of palpitation. Patient also felt as if her chest were congested. There was no complaint of fever or chills. There was no complaint of lightheadedness or dizziness. Denies any nausea, vomiting or abdominal pain. Because of this chest pressure and congestion, patient saw her PCP who ordered some blood work that showed patient to have elevated D-dimer and for that patient was told to come to the ER for further evaluation. Patient was also supposed to get outpatient heart cath on 05/30 but was canceled for patient not feeling well. * Initial lab work done in the ER showed showed WBC 8.7, hemoglobin 12.2, platelet count 215, sodium 136, potassium 4.6, BUN 11, creatinine 0.48, glucose 351, magnesium 1.4 * Influenza A not detected * Influenza B not detected * RSV not detected * COVID-19 not detected * EKG done in the ER showed heart rate of 89, no ST segment elevation or depr ession seen, no T-wave inversions seen. * CT chest done showed no PE, no evidence of thoracic aortic aneurysm or dissection * 06/03/2023: Patient seen and evaluated bedside, patient noted to have hypergl ycemia, underwent cardiac catheterization, continue patient on Lantus, correctional insulin, home regimen reviewed. Appreciate input from cardiology PHYSICAL EXAMINATION: GENERAL: The patient is alert and oriented x3, not in any acute distress. Well developed, well nourished. HEENT: Pupils are round and equally reacting to light. EOMI. No scleral icterus. CARDIOVASCULAR: S1 and S2 present. No murmurs, rubs, or gallops. PULMONARY: Chest is clear to auscultation, no wheezing or crackles. ABDOMEN: Soft, nontender, nondistended, normoactive bowel sounds. No palpable organomegaly. MUSCULOSKELETAL: No joint swelling or deformity. EXTREMITIES: No cyanosis, clubbing, or pedal edema. NEUROLOGICAL: Gross neurological examination did not reveal any focal deficits. SKIN: No rashes. Assessment and plan * Elevated troponin rule out ACS * New onset cardiomyopathy * Acute bronchitis * Diabetes mellitus type 2 * Hypertension * Hyperlipidemia elevated troponin * In regards to elevated troponin, cardiology consulted, s/p cardiac catheterization, IV heparin discontinued. Continue aspirin, Lipitor losartan * In regards to diabetes mellitus continue patient on correctional insulin, Premeal NovoLog, Lantus, metformin on hold * In regards to hypertension continue metoprolol and losartan * For acute bronchitis continue patient on doxycycline was started outpatient finish course Objective - Vital Signs Vital signs: Vital Signs Temp 97.7 F 06/03/23 08:20 Pulse 82 06/03/23 08:20 Resp 18 06/03/23 08:20 BP 151/74 06/03/23 08:20 Pulse Ox 96 06/03/23 08:20 FiO2 Intake & Output 06/02/23 06/03/23 06/03/23 18:59 06:59 18:59 Intake Total 110 607.5 154.917 Balance 110 607.5 154.917 Weight 147.418 kg Intake: Intake, IV Titration 67.5 154.917 Amount Heparin Sod,Pork in 0.45% 67.5 154.917 NaCl 25,000 unit In 0.45 % NaCl 1 250ml.bag @ 6. 7834 UNITS/KG/HR 10 mls/ hr IV .Q24H KYLE Rx#: [id number] Oral 110 540 Other: # Voids 2 - Labs CBC & Chem 7: 06/03/23 08:20 06/02/23 10:15 Labs: Abnormal Lab Results - Last 24 Hours (Table) 06/02/23 06/02/23 06/02/23 Range/Units 10:15 10:15 12:17 MCHC (31.0-37.0) g/dL RDW (11.5-15.5) % APTT (22.0-30.0) sec Sodium 136 L (137-145) mmol/L Creatinine 0.48 L (0.52-1.04) mg/dL Glucose 351 H (74-99) mg/dL POC Glucose (mg/dL) 366 H (70-110) mg/dL Magnesium 1.4 L (1.6-2.3) mg/dL Troponin I 0.054 H* (0.000-0.034) ng/mL 06/02/23 06/02/23 06/02/23 Range/Units 12:56 14:23 14:23 MCHC 30.7 L (31.0-37.0) g/dL RDW 15.6 H (11.5-15.5) % APTT (22.0-30.0) sec Sodium (137-145) mmol/L Creatinine (0.52-1.04) mg/dL Glucose (74-99) mg/dL POC Glucose (mg/dL) (70-110) mg/dL Magnesium (1.6-2.3) mg/dL Troponin I 0.063 H* 0.066 H* (0.000-0.034) ng/mL 06/02/23 06/02/23 06/03/23 Range/Units 16:30 19:47 06:15 MCHC (31.0-37.0) g/dL RDW (11.5-15.5) % APTT (22.0-30.0) sec Sodium (137-145) mmol/L Creatinine (0.52-1.04) mg/dL Glucose (74-99) mg/dL POC Glucose (mg/dL) 326 H 387 H 355 H (70-110) mg/dL Magnesium (1.6-2.3) mg/dL Troponin I (0.000-0.034) ng/mL 06/03/23 06/03/23 Range/Units 08:20 08:20 MCHC (31.0-37.0) g/dL RDW 15.7 H (11.5-15.5) % APTT 37.3 H (22.0-30.0) sec Sodium (137-145) mmol/L Creatinine (0.52-1.04) mg/dL Glucose (74-99) mg/dL POC Glucose (mg/dL) (70-110) mg/dL Magnesium (1.6-2.3) mg/dL Troponin I (0.000-0.034) ng/mL
[2023-06-03] MEDS: SPIRONOLACTONE 25 MG TAB PO SCH (15:12)
[2023-06-03] MEDS: DAPAGLIFLOZIN PROPANEDIOL 10 MG TABLET PO SCH (15:12)
[2023-06-03 15:34] LABS: African American GFR (CKD) >90 (>60 ml/min/1.73 sqM); Anion Gap 9 mmol/L; Blood Urea Nitrogen 12 mg/dL (7-17); Calcium 8.9 mg/dL (8.4-10.2); Carbon Dioxide 22 mmol/L (22-30); Chloride 104 mmol/L (98-107); Glucose 358 mg/dL (74-99); Non-African American GFR(CKD) >90 (>60 ml/min/1.73 sqM); Potassium 4.1 mmol/L (3.5-5.1); Sodium 135 mmol/L (137-145)
[2023-06-03 16:37] LABS: Glucose,Whole Blood 346 mg/dL (70-110)
[2023-06-03] MEDS: INSULIN ASPART (NovoLOG) 100 UNIT/ML VIAL SQ SCH (17:29)
[2023-06-03] MEDS: PIOGLITAZONE 15 MG TAB PO SCH (17:29)
[2023-06-03] MEDS: INSULIN DETEMIR (LEVEMIR) 100 UNIT/ML SYR SQ SCH (18:22)
[2023-06-03 20:18] LABS: Glucose,Whole Blood 313 mg/dL (70-110)
[2023-06-03] MEDS ORDERED: METOPROLOL SUCCINATE (ER) 25 MG TAB.ER.24H PO SCH (21:00)
[2023-06-03] MEDS: PANTOPRAZOLE 40 MG TABLET PO PRN (21:20)
[2023-06-03] MEDS: DOXYCYCLINE 100 MG CAP PO SCH (21:23)
[2023-06-04 06:15] LABS: Glucose,Whole Blood 242 mg/dL (70-110)
[2023-06-04] MEDS: METOPROLOL SUCCINATE (ER) 25 MG TAB.ER.24H PO SCH (09:08)
--- NOTE | 2023-06-04 09:38 | P.PN ---
Subjective Progress Note Date: 06/04/23 PROGRESS NOTE The patient is a 57-year-old female with history of hypertension, hyperlipidemia, diabetes mellitus who was recently diagnosed with cardiomyopathy who presented with symptoms of chest discomfort and mild troponin elevation. She underwent cardiac catheterization and was found to have no evidence of significant obstructive disease. She is feeling better today. She denies any chest discomfort, dizziness or palpitations. She was found to have an ejection fraction of 35-40 %. Medications: Aspirin, Lipitor 40 mg daily, Farxiga 10 mg daily, insulin, losartan 100 mg daily, metoprolol succinate 25 mg daily, Aldactone 25 mg daily. PHYSICAL EXAMINATION: Blood pressure ranging between 120 and 150 heart rate 88 LUNGS: Clear to auscultation HEART: Regular rate and rhythm, S1, S2. No S3. Systolic ejection murmur 04/25 ABDOMEN: Soft, nontender, no organomegaly obese EXTREMETIES: No edema, right radial no hematoma IMPRESSION: 1. Nonischemic cardiomyopathy 2. Hypertension 3. Hyperlipidemia 4. Diabetes mellitus 5. Obesity PLAN: 1. Continue present therapy 2. Follow-up as an outpatient with Dr. Gomez 3. Probably change as an outpatient from losartan to Entresto 4. Follow systolic function to make a decision regarding the need to undergo ICD implantation 5. I discussed with the patient the importance of weight reduction and increasing physical activity Objective - Vital Signs Vital signs: Vital Signs Temp 97.8 F 06/04/23 04:00 Pulse 68 06/04/23 04:00 Resp 16 06/03/23 15:11 BP 142/78 06/04/23 04:00 Pulse Ox 94 L 06/03/23 14:10 FiO2 Intake & Output 06/03/23 06/04/23 06/04/23 18:59 06:59 18:59 Intake Total 1370.917 240 Balance 1370.917 240 Intake: IV 200 Intake, IV Titration 454.917 Amount Heparin Sod,Pork in 0.45% 154.917 NaCl 25,000 unit In 0.45 % NaCl 1 250ml.bag @ 6. 7834 UNITS/KG/HR 10 mls/ hr IV .Q24H KYLE Rx#: [id number] Sodium Chloride 0.9% 1, 300 000 ml @ 75 mls/hr IV . [id number] KYLE Rx#:[id number] Oral 716 240 Other: # Voids 2 1 - Labs CBC & Chem 7: 06/03/23 08:20 06/03/23 14:25 Labs: Abnormal Lab Results - Last 24 Hours (Table) 06/03/23 06/03/23 06/03/23 Range/Units 08:20 08:20 11:45 Sodium (137-145) mmol/L Creatinine (0.52-1.04) mg/dL Glucose (74-99) mg/dL POC Glucose (mg/dL) 445 H (70-110) mg/dL Hemoglobin A1c 10.5 H (<=6.0) % Triglycerides 168.00 H (0.00-149.00) mg/dL 06/03/23 06/03/23 06/03/23 Range/Units 14:25 14:29 16:34 Sodium 135 L (137-145) mmol/L Creatinine 0.49 L (0.52-1.04) mg/dL Glucose 358 H (74-99) mg/dL POC Glucose (mg/dL) 347 H 346 H (70-110) mg/dL Hemoglobin A1c (<=6.0) % Triglycerides (0.00-149.00) mg/dL 06/03/23 06/04/23 Range/Units 20:15 06:15 Sodium (137-145) mmol/L Creatinine (0.52-1.04) mg/dL Glucose (74-99) mg/dL POC Glucose (mg/dL) 313 H 242 H (70-110) mg/dL Hemoglobin A1c (<=6.0) % Triglycerides (0.00-149.00) mg/dL
[2023-06-04 11:26] LABS: Glucose,Whole Blood 237 mg/dL (70-110)
--- NOTE | 2023-06-04 12:51 | P.DS ---
Providers Date of admission: 06/02/23 12:07 Expected date of discharge: 06/04/23 Attending physician: Lei Buckner MD Consults: 06/02/23 11:59 Consult Physician Urgent Consulting Provider: Joaquim Gomez Consult Reason/Comments: cp Do you want consulting provider notified?: Yes Primary care physician[place] [facility] Course: * 57-year-old lady with past medical significant for diabetes mellitus, hypertension, cardiomyopathy, hyperlipidemia who presented to the ER for chest congestion and chest pressure. Patient stated that she was all right 10 days back when he started noticing that she was getting chest pressure that was brought on by exertion, chest pain was central location, nonradiating, no aggravating or relieving factor associated with this pressure. Patient was complaining of shortness of breath on exertion. There was no complaint of palpitation. Patient also felt as if her chest were congested. There was no complaint of fever or chills. There was no complaint of lightheadedness or dizziness. Denies any nausea, vomiting or abdominal pain. Because of this chest pressure and congestion, patient saw her PCP who ordered some blood work that showed patient to have elevated D-dimer and for that patient was told to come to the ER for further evaluation. Patient was also supposed to get outpatient heart cath on 05/30 but was canceled for patient not feeling well. * Initial lab work done in the ER showed showed WBC 8.7, hemoglobin 12.2, platelet count 215, sodium 136, potassium 4.6, BUN 11, creatinine 0.48, glucose 351, magnesium 1.4 * Influenza A not detected * Influenza B not detected * RSV not detected * COVID-19 not detected * EKG done in the ER showed heart rate of 89, no ST segment elevation or depression seen, no T-wave inversions seen. * CT chest done showed no PE, no evidence of thoracic aortic aneurysm or dissection * 06/03/2023: Patient seen and evaluated bedside, patient noted to have hyperglycemia, underwent cardiac catheterization, continue patient on Lantus, correctional insulin, home regimen reviewed. Appreciate input from cardiology * 06/04/2023: Patient was monitored postcardiac catheterization, continue patient on guideline directed medical therapy patient seen by cardiology and cleared for discharge.. Aldactone ordered for outpatient follow-up with cardiology recommended. PHYSICAL EXAMINATION: GENERAL: The patient is alert and oriented x3, not in any acute distress. Well developed, well nourished. HEENT: Pupils are round and equally reacting to light. EOMI. No scleral icterus. CARDIOVASCULAR: S1 and S2 present. No murmurs, rubs, or gallops. PULMONARY: Chest is clear to auscultation, no wheezing or crackles. ABDOMEN: Soft, nontender, nondistended, normoactive bowel sounds. No palpable organomegaly. MUSCULOSKELETAL: No joint swelling or deformity. EXTREMITIES: No cyanosis, clubbing, or pedal edema. NEUROLOGICAL: Gross neurological examination did not reveal any focal deficits. SKIN: No rashes. Assessment and plan * Elevated troponin ruled out ACS, acute VT ruled out * New onset cardiomyopathy, nonischemic myopathy * Acute bronchitis * Diabetes mellitus type 2 * Hypertension * Hyperlipidemia * In regards to elevated troponin, cardiology consulted, s/p cardiac catheterization, IV heparin discontinued. Continue aspirin, Lipitor losartan, Aldactone * In regards to diabetes mellitus, continue home regimen upon discharge, patient is on high-dose of insulin patient confirms she takes that * In regards to hypertension continue metoprolol and losartan * For acute bronchitis continue patient on doxycycline was started outpatient finish course, finish outpatient course * Patient follow-up with cardiology Plan - Discharge Summary Discharge Rx Participant: Yes New Discharge Prescriptions: New Spironolactone [Aldactone] 25 mg PO DAILY 30 Days #30 tab Continue metFORMIN HCL [Glucophage] 1,000 mg PO BID Cetirizine HCl [Zyrtec] 10 mg PO HS Venlafaxine HCl [Effexor XR] 150 mg PO DAILY Insulin Regular, Human [humuLIN R U-500 Kwikpen] 300 unit SQ AC-TID Aspirin 81 mg PO DAILY Omeprazole 40 mg PO HS PRN PRN Reason: Gi Upset Metoprolol Succinate [Metoprolol Succinate ER] 25 mg PO DAILY Dm/Acetaminophen/Doxylamine [Vicks Nyquil Cold-Flu Liquid] 30 ml PO Q4H PRN PRN Reason: Cold Symptoms Doxycycline Hyclate 100 mg PO BID Rosuvastatin [Crestor] 20 mg PO HS Ibuprofen [Advil] 600 mg PO Q6HR PRN PRN Reason: Pain Albuterol Sulfate [Albuterol Sulfate Hfa] 2 puff PO RT-Q4H PRN PRN Reason: Shortness Of Breath Pioglitazone HCl 15 mg PO DAILY ALPRAZolam [Xanax] 0.25 mg PO BID PRN PRN Reason: Anxiety Benzonatate [Tessalon Perle] 200 mg PO TID PRN PRN Reason: Cough Losartan Potassium [Cozaar] 100 mg PO DAILY Discontinued methylPREDNISolone Dose Pack [Medrol Dose Pack] See Taper PO DIRECTED Discharge Medication List metFORMIN HCL [Glucophage] 1,000 mg PO BID 01/23/19 [History] Cetirizine HCl [Zyrtec] 10 mg PO HS 01/15/21 [History] Venlafaxine HCl [Effexor XR] 150 mg PO DAILY 02/26/21 [History] Insulin Regular, Human [humuLIN R U-500 Kwikpen] 300 unit SQ AC-TID 05/02/22 [History] Aspirin 81 mg PO DAILY 05/25/23 [History] Metoprolol Succinate [Metoprolol Succinate ER] 25 mg PO DAILY 05/30/23 [History] Omeprazole 40 mg PO HS PRN 05/30/23 [History] Pioglitazone HCl 15 mg PO DAILY 05/30/23 [History] ALPRAZolam [Xanax] 0.25 mg PO BID PRN 06/02/23 [History] Albuterol Sulfate [Albuterol Sulfate Hfa] 2 puff PO RT-Q4H PRN 06/02/23 [History] Benzonatate [Tessalon Perle] 200 mg PO TID PRN 06/02/23 [History] Dm/Acetaminophen/Doxylamine [Vicks Nyquil Cold-Flu Liquid] 30 ml PO Q4H PRN 06/02/23 [History] Doxycycline Hyclate 100 mg PO BID 06/02/23 [History] Ibuprofen [Advil] 600 mg PO Q6HR PRN 06/02/23 [History] Losartan Potassium [Cozaar] 100 mg PO DAILY 06/02/23 [History] Rosuvastatin [Crestor] 20 mg PO HS 06/02/23 [History] Spironolactone [Aldactone] 25 mg PO DAILY 30 Days #30 tab 06/04/23 [Rx] Follow up Appointment(s)/Referral(s): Quinn Olivares DO [Primary Care Provider] - 1-2 days (Please ensure office is aware this is an appointment following a hospital stay.) Joaquim Gomez MD [STAFF PHYSICIAN] - 1 Week (Please ensure office is aware this is an appointment following a hospital stay.) Patient Instructions/Handouts: *Surgery [facility] - After Heart Catheterization - [employer] Teacher Instructions, Managing Diabetes During Sick Days (DC) Discharge Disposition: HOME SELF-CARE
[2023-06-04 18:53] VITALS: BP 173/67; PULSE 76; TEMP 98.3
== END 2023-06-04 12:48 | disposition home or self-care (01) | DRG 287 ==
LOC: EC 09:50 → 3SCARD 12:07
PROVIDERS: ADMIT Internal Medicine; ATTEND Internal Medicine
PROC: B2111ZZ Fluoroscopy of Multiple Coronary Arteries using Low Osmolar Contrast (ICD-10-PCS; 2023-06-03)
PROC: B2151ZZ Fluoroscopy of Left Heart using Low Osmolar Contrast (ICD-10-PCS; 2023-06-03)
PROC: 4A023N7 Measurement of Cardiac Sampling and Pressure, Left Heart, Percutaneous Approach (ICD-10-PCS; principal; 2023-06-03 13:00)
DX: I25.110 Atherosclerotic heart disease of native coronary artery with unstable angina pectoris (principal); Z68.43 Body mass index [BMI] 50.0-59.9, adult; G47.30 Sleep apnea, unspecified; I42.8 Other cardiomyopathies; J20.9 Acute bronchitis, unspecified; E78.5 Hyperlipidemia, unspecified; I10 Essential (primary) hypertension; E83.42 Hypomagnesemia; I08.3 Combined rheumatic disorders of mitral, aortic and tricuspid valves; D64.9 Anemia, unspecified; E66.9 Obesity, unspecified; Z88.5 Allergy status to narcotic agent; Z90.49 Acquired absence of other specified parts of digestive tract; Z98.84 Bariatric surgery status; F41.9 Anxiety disorder, unspecified; I25.2 Old myocardial infarction; I25.5 Ischemic cardiomyopathy; K21.9 Gastro-esophageal reflux disease without esophagitis; Z79.4 Long term (current) use of insulin; Z79.82 Long term (current) use of aspirin; Z79.84 Long term (current) use of oral hypoglycemic drugs; Z79.899 Other long term (current) drug therapy; Z82.49 Family history of ischemic heart disease and other diseases of the circulatory system
CPT/HCPCS: 36415; 71275; 80048; 80053; 80061; 83036; 83735; 83880; 84484; 85025; 85610; 85730; 87636; 93005; 93458; 99285

== ENCOUNTER → 2023-06-28 | Outpatient (CLI) | payer BC ==
--- NOTE | 2023-06-28 10:48 | MM ---
Reason for Exam: Hx of breast cancer, conservation therapy. Last mammogram was performed 1 year(s) and 7 month(s) ago. Patient History: Menarche at age 14. First Full-Term at age 39. Late child-bearing (after 32). Left ovary removed at age 46. Right ovary removed at age 27. Postmenopausal. Breast cancer, left, age 55. Previous chest radiation therapy at age 55. Hormonal Contraceptives for 1 year, 6 months. 01/22/2021, Lumpectomy on the Left side. 01/22/2021, Malignant Core Biopsy on the left side. 12/21/2020, Malignant Core Biopsy on the left side. Maternal aunt had breast cancer, age 42. Prior Study Comparison: 10/23/2014 Bilateral Screening Mammogram, [facility]. 11/14/2017 Bilateral Screening Mammogram, [facility]. 11/30/2020 Bilateral Screening Mammogram, [facility]. 12/08/2020 Left Diagnostic Mammogram, [facility]. 12/01/2021 Bilateral MG 3D diag mammo w/cad ANTHONY, [facility]. Tissue Density: The breasts are heterogeneously dense, which may obscure small masses. Findings: Analyzed By CAD. Stable postlumpectomy change and radiation therapy change left breast. Dystrophic calcifications noted. No evidence for suspicious calcifications within either breast. No evidence for mass. Overall Assessment: Benign, BI-RAD 2 Management: Diagnostic Mammogram of both breasts in 1 year. . Results were given to the patient verbally at the time of exam. Patient should continue monthly self-breast exams. A clinical breast exam by your physician is recommended on an annual basis. This exam should not preclude additional follow-up of suspicious palpable abnormalities. Note on Kamini scores and lifetime risk: 1. A Kamini score greater than 3% is considered moderate risk. If this is the case, consider specialist referral to assess eligibility for a risk reducing agent. 2. If overall lifetime risk for the development of breast cancer is 20% or higher, the patient may qualify for future screening with alternating mammogram and breast MRI. Electronically signed and approved by: Jacobo Thayer M.D. Radiologis
== END | disposition home or self-care (01) ==
LOC: RADMAMWWP 09:22
PROVIDERS: ATTEND Obstetrics & Gynecology
DX: R92.333 Mammographic heterogeneous density, bilateral breasts (principal); Z85.3 Personal history of malignant neoplasm of breast; Z78.0 Asymptomatic menopausal state; Z80.3 Family history of malignant neoplasm of breast
CPT/HCPCS: 77062; 77066

== ENCOUNTER 2023-08-20 17:33 | Inpatient (IN) | payer BC ==
--- NOTE | 2023-08-20 18:11 | ED ---
General Adult HPI - General Chief complaint: Chest Pain Stated complaint: Chest Pain Time Seen by Provider: 08/20/23 17:45 Source: patient, EMS, RN notes reviewed Mode of arrival: EMS Limitations: no limitations - History of Present Illness Initial comments: Patient is a 57-year-old female presenting to the emergency department with chest discomfort. Onset of symptoms was yesterday. Patient has chest tightness only with exertion. Patient has associated dyspnea. No leg pain or calf pain or calf swelling. Patient does have history of dilated cardiomyopathy. Currently patient is near symptom-free. Symptoms are only with exertion. No nausea. No diaphoresis. - Related Data Home Medications Medication Instructions Recorded Confirmed metFORMIN HCL [Glucophage] 1,000 mg PO BID 01/23/19 08/20/23 Cetirizine HCl [Zyrtec] 10 mg PO HS 01/15/21 08/20/23 Venlafaxine HCl [Effexor XR] 150 mg PO DAILY 02/26/21 08/20/23 Insulin Regular, Human [humuLIN R 350 unit SQ AC-BID@0800,1300 05/02/22 08/20/23 U-500 Kwikpen] Aspirin 81 mg PO DAILY 05/25/23 08/20/23 Metoprolol Succinate [Metoprolol 25 mg PO DAILY 05/30/23 08/20/23 Succinate ER] Omeprazole 40 mg PO HS PRN 05/30/23 08/20/23 Pioglitazone HCl 15 mg PO DAILY 05/30/23 08/20/23 ALPRAZolam [Xanax] 0.25 mg PO BID PRN 06/02/23 08/20/23 Albuterol Sulfate [Albuterol 2 puff PO RT-Q4H PRN 06/02/23 08/20/23 Sulfate Hfa] Ibuprofen [Advil] 600 mg PO Q6HR PRN 06/02/23 08/20/23 Losartan Potassium [Cozaar] 100 mg PO DAILY 06/02/23 08/20/23 Rosuvastatin [Crestor] 20 mg PO HS 06/02/23 08/20/23 Chlorhexidine Gluconate [Peridex] 15 ml PO BID 08/20/23 08/20/23 Ergocalciferol (Vitamin D2) 1,250 mcg PO ALEXANDRA 08/20/23 08/20/23 [Drisdol (50,000 Iu)] Insulin Regular, Human [humuLIN R 250 unit SQ AC-SUPPER 08/20/23 08/20/23 U-500 Kwikpen] Tirzepatide [Mounjaro] 12.5 mg SQ MO 08/20/23 08/20/23 Previous Rx's Medication Instructions Recorded Spironolactone [Aldactone] 25 mg PO DAILY 30 Days #30 tab 06/04/23 Allergies Allergy/AdvReac Type Severity Reaction Status Date / Time codeine AdvReac Nausea & Verified 08/20/23 18:24 Vomiting hydrocodone [From Vicodin] AdvReac Nausea & Verified 08/20/23 18:24 Vomiting Review of Systems ROS Statement: Those systems with pertinent positive or pertinent negative responses have been documented in the HPI. ROS Other: All systems not noted in ROS Statement are negative. Constitutional: Denies: fever Eyes: Denies: eye pain ENT: Denies: ear pain Respiratory: Reports: as per HPI Cardiovascular: Reports: as per HPI, chest pain, dyspnea on exertion Musculoskeletal: Denies: back pain Past Medical History Past Medical History: Cancer, Diabetes Mellitus, GERD/Reflux, Hyperlipidemia, Hypertension, Sleep Apnea/CPAP/BIPAP Additional Past Medical History / Comment(s): obesity , hx anemia, mild sleep apnea (no machine), heart murmur, Has Lap Band (states no fluid), LT BREAST CANCER DX-11/2020-received radiation, Last dose 2020. Following with Dr Mabry for blood sugars. recent influenza infection - Dr Gomez aware. heart racing recently. recent stress test. History of Any Multi-Drug Resistant Organisms: None Reported Past Surgical History: Bariatric Surgery, Breast Surgery, Section, Cholecystectomy, Heart Catheterization Additional Past Surgical History / Comment(s): left breast lumpectomy 01-22-21,Lap band August 2004, rt oopherectomy 1993, Left oopherectomy 2012. Heart Cath ([facility] -Mar 2017)-clear, COLONOSCOPY Past Anesthesia/Blood Transfusion Reactions: No Reported Reaction Additional Past Anesthesia/Blood Transfusion Reaction / Comment(s): states long time to wake up.no hx blood transfusion Past Psychological History: Anxiety Smoking Status: Never smoker Past Alcohol Use History: None Reported Past Drug Use History: None Reported - Past Family History Mother Family Medical History: Cancer Additional Family Medical History / Comment(s): Rectal cancer General Exam Limitations: no limitations General appearance: alert, in no apparent distress Head exam: Present: normocephalic Eye exam: Present: normal appearance Neck exam: Present: normal inspection Respiratory exam: Present: normal lung sounds bilaterally Cardiovascular Exam: Present: regular rate, normal rhythm GI/Abdominal exam: Present: soft. Absent: tenderness Extremities exam: Present: normal inspection. Absent: pedal edema, calf tenderness Neurological exam: Present: alert Psychiatric exam: Present: normal affect, normal mood Skin exam: Present: normal color Course Vital Signs 08/20/23 08/20/23 08/20/23 17:35 18:39 19:48 Temperature 98.2 F Pulse Rate 102 H 93 98 Respiratory 24 20 14 Rate Blood Pressure 140/83 118/76 133/78 O2 Sat by Pulse 96 97 95 Oximetry EKG Findings - EKG Results: EKG: interpreted by ALICIAD (Left axis.), sinus rhythm, normal QRS, normal ST/T EKG shows: tachycardia Medical Decision Making - Medical Decision Making Was pt. sent in by a medical professional or institution (, PA, LEAD BLENDER, urgent care, hospital, or usp...) When possible be specific @ -No Did you speak to anyone other than the patient for history (EMS, parent, family, police, friend...)? What history was obtained from this source @ -No Did you review nursing and triage notes (agree or disagree)? Why? @ -I reviewed and agree with nursing and triage notes Were old charts reviewed (outside hosp., previous admission, EMS record, old EKG, old radiological studies, urgent care reports/EKG's, usp records)? Report findings @ -No old charts were reviewed Differential Diagnosis (chest pain, altered mental status, abdominal pain women, abdominal pain men, vaginal bleeding, weakness, fever, dyspnea, syncope, headache, dizziness, GI bleed, back pain, seizure, CVA, palpatations, mental health, musculoskeletal)? @ -Differential Chest Pain: Stable Angina, Unstable Angina, STEMI, NSTEMI Aortic Dissection, Pneumothorax, Musculoskeletal, Esophageal Spasm GERD, Cholecystitis, Pancreatitis, Zoster, this is not meant to be an all-inclusive list. EKG interpreted by me (3pts min.). @ -As above X-rays interpreted by me (1pt min.). @ -Chest x-ray shows cardiomegaly and appearance of increased interstitial markings CT interpreted by me (1pt min.). @ -CT scan negative for pulmonary embolism. Possible atelectasis versus infiltrate U/S interpreted by me (1pt. min.). @ -None done What testing was considered but not performed or refused? (CT, X-rays, U/S, labs)? Why? @ -None What meds were considered but not given or refused? Why? @ -None Did you discuss the management of the patient with other professionals (professionals i.e. DrGopal, PA, LEAD BLENDER, lab, RT, psych nurse, social media developer, corporate lawyer, teacher, police liaison officer, returned case inspector)? Give summary @ -Discussed with practitioner Silvina who will admit covering Dr. Wynn, covering for Dr. Reyes, who admits for Dr. Sanon for us. Was smoking cessation discussed for >3mins.? @ -No Was critical care preformed (if so, how long)? @ -No Were there social determinants of health that impacted care today? How? (Homelessness, low income, unemployed, alcoholism, drug addiction, transportation, low edu. Level, literacy, decrease access to med. care, [facility], rehab)? @ -No Was there de-escalation of care discussed even if they declined (Discuss DNR or withdrawal of care, Hospice)? DNR status @ -No What co-morbidities impacted this encounter? (DM, HTN, Smoking, COPD, CAD, Cancer, CVA, ARF, Chemo, Hep., AIDS, mental health diagnosis, sleep apnea, morbid obesity)? @ -History of cardiomyopathy Was patient admitted / discharged? Hospital course, mention meds given and route, prescriptions, significant lab abnormalities, going to OR and other pertinent info. @ -Patient reevaluated and resting comfortably in bed. Patient feels much better with oxygen on. Patient and family are updated on results and plan. Patient will be admitted with cardiology consult. Low suspicion for pneumonia and procalcitonin has been ordered. Undiagnosed new problem with uncertain prognosis? @ -No Drug Therapy requiring intensive monitoring for toxicity (Heparin, Nitro, Insulin, Cardizem)? @ -No Were any procedures done? @ -No Diagnosis/symptom? @ -Chest pain Acute, or Chronic, or Acute on Chronic? @ -Acute Uncomplicated (without systemic symptoms) or Complicated (systemic symptoms)? @ -Complicated with exertional dyspnea Side effects of treatment? @ -No Exacerbation, Progression, or Severe Exacerbation? @ -No Poses a threat to life or bodily function? How? (Chest pain, [place], [place], pneumonia, PE, COPD, DKA, ARF, appy, cholecystitis, CVA, Diverticulitis, Homicidal, Suicidal, threat to staff... and all critical care pts) @ -Threat to cardiac function - Lab Data Result diagrams: 08/20/23 18:28 08/20/23 18:28 Lab Results 08/20/23 08/20/23 08/20/23 Range/Units 18:28 18:28 18:28 WBC 11.2 H (3.8-10.6) k/uL RBC 4.48 (3.80-5.40) m/uL Hgb 11.7 (11.4-16.0) gm/dL Hct 38.1 (34.0-46.0) % MCV 85.2 (80.0-100.0) fL MCH 26.1 (25.0-35.0) pg MCHC 30.6 L (31.0-37.0) g/dL RDW 16.1 H (11.5-15.5) % Plt Count 211 (150-450) k/uL MPV 8.4 Neutrophils % 72 % Lymphocytes % 18 % Monocytes % 5 % Eosinophils % 4 % Basophils % 1 % Neutrophils # 8.0 H (1.3-7.7) k/uL Lymphocytes # 2.1 (1.0-4.8) k/uL Monocytes # 0.5 (0-1.0) k/uL Eosinophils # 0.4 (0-0.7) k/uL Basophils # 0.1 (0-0.2) k/uL Hypochromasia Moderate Anisocytosis Slight PT 10.3 (10.0-12.5) sec INR 0.9 (<1.2) APTT 22.2 (22.0-30.0) sec D-Dimer 0.79 H (<0.60) mg/L FEU Sodium 133 L (137-145) mmol/L Potassium 5.0 (3.5-5.1) mmol/L Chloride 107 (98-107) mmol/L Carbon Dioxide 16 L (22-30) mmol/L Anion Gap 10 mmol/L BUN 14 (7-17) mg/dL Creatinine 0.59 (0.52-1.04) mg/dL Est GFR (CKD-EPI)AfAm >90 (>60 ml/min/1.73 sqM) Est GFR (CKD-EPI)NonAf >90 (>60 ml/min/1.73 sqM) Glucose 473 H (74-99) mg/dL Calcium 8.7 (8.4-10.2) mg/dL Magnesium 1.6 (1.6-2.3) mg/dL Total Bilirubin 0.6 (0.2-1.3) mg/dL AST 23 (14-36) U/L ALT 18 (4-34) U/L Alkaline Phosphatase 103 (38-126) U/L Troponin I (0.000-0.034) ng/mL NT-Pro-B Natriuret Pep 498 pg/mL Total Protein 6.6 (6.3-8.2) g/dL Albumin 3.6 (3.5-5.0) g/dL 08/20/23 Range/Units 18:28 WBC (3.8-10.6) k/uL RBC (3.80-5.40) m/uL Hgb (11.4-16.0) gm/dL Hct (34.0-46.0) % MCV (80.0-100.0) fL MCH (25.0-35.0) pg MCHC (31.0-37.0) g/dL RDW (11.5-15.5) % Plt Count (150-450) k/uL MPV Neutrophils % % Lymphocytes % % Monocytes % % Eosinophils % % Basophils % % Neutrophils # (1.3-7.7) k/uL Lymphocytes # (1.0-4.8) k/uL Monocytes # (0-1.0) k/uL Eosinophils # (0-0.7) k/uL Basophils # (0-0.2) k/uL Hypochromasia Anisocytosis PT (10.0-12.5) sec INR (<1.2) APTT (22.0-30.0) sec D-Dimer (<0.60) mg/L FEU Sodium (137-145) mmol/L Potassium (3.5-5.1) mmol/L Chloride (98-107) mmol/L Carbon Dioxide (22-30) mmol/L Anion Gap mmol/L BUN (7-17) mg/dL Creatinine (0.52-1.04) mg/dL Est GFR (CKD-EPI)AfAm (>60 ml/min/1.73 sqM) Est GFR (CKD-EPI)NonAf (>60 ml/min/1.73 sqM) Glucose (74-99) mg/dL Calcium (8.4-10.2) mg/dL Magnesium (1.6-2.3) mg/dL Total Bilirubin (0.2-1.3) mg/dL AST (14-36) U/L ALT (4-34) U/L Alkaline Phosphatase (38-126) U/L Troponin I 0.046 H* (0.000-0.034) ng/mL NT-Pro-B Natriuret Pep pg/mL Total Protein (6.3-8.2) g/dL Albumin (3.5-5.0) g/dL Disposition Clinical Impression: Chest pain Disposition: ADMITTED IP TO THIS HOSP Is patient prescribed a controlled substance at d/c from ED?: No Referrals: Quinn Olivares DO [Primary Care Provider] - 1-2 days Time of Disposition: 20:18
--- NOTE | 2023-08-20 18:29 | XR ---
EXAMINATION TYPE: XR chest 2V DATE OF EXAM: 08/20/2023 COMPARISON: None INDICATION: Chest pain TECHNIQUE: Frontal and lateral views of the chest are obtained. FINDINGS: The heart size is enlarged. The pulmonary vasculature is prominent. Mild diffuse increased lung markings are present. Correlate for volume overload. Small posterior pleu ral effusion is not excluded.. IMPRESSION: 1. Critical correlation recommended for congestive heart failure.
[2023-08-20] MEDS: ASPIRIN 81 MG PO STA (18:33)
[2023-08-20] MEDS: NITROGLYCERIN OINT 1 INCH/GM PACKET TOPICAL STA (18:38)
[2023-08-20 18:42] LABS: Anisocytosis Slight; Basophils # (A) 0.1 k/uL (0-0.2); Basophils % (A) 1 %; Eosinophils # (A) 0.4 k/uL (0-0.7); Eosinophils % (A) 4 %; HCT 38.1 % (34.0-46.0); HGB 11.7 gm/dL (11.4-16.0); Hypochromasia Moderate; Lymphocytes # (A) 2.1 k/uL (1.0-4.8); Lymphocytes % (A) 18 %; MCH 26.1 pg (25.0-35.0); MCHC 30.6 g/dL (31.0-37.0); MCV 85.2 fL (80.0-100.0); Mean Platelet Volume 8.4; Monocytes # (A) 0.5 k/uL (0-1.0); Monocytes % (A) 5 %; Neutrophils % (A) 72 %; Platelet Count 211 k/uL (150-450); RBC 4.48 m/uL (3.80-5.40); RDW 16.1 % (11.5-15.5); WBC 11.2 k/uL (3.8-10.6)
[2023-08-20 19:03] LABS: ALT 18 U/L (4-34); AST 23 U/L (14-36); African American GFR (CKD) >90 (>60 ml/min/1.73 sqM); Albumin 3.6 g/dL (3.5-5.0); Alkaline Phosphatase 103 U/L (38-126); Anion Gap 10 mmol/L; Blood Urea Nitrogen 14 mg/dL (7-17); Calcium 8.7 mg/dL (8.4-10.2); Carbon Dioxide 16 mmol/L (22-30); Chloride 107 mmol/L (98-107); Glucose 473 mg/dL (74-99); Magnesium 1.6 mg/dL (1.6-2.3); Non-African American GFR(CKD) >90 (>60 ml/min/1.73 sqM); Sodium 133 mmol/L (137-145); Total Bilirubin 0.6 mg/dL (0.2-1.3); Total Protein 6.6 g/dL (6.3-8.2)
[2023-08-20 19:09] LABS: INR 0.9 (<1.2); Prothrombin Time 10.3 sec (10.0-12.5)
[2023-08-20 19:10] LABS: Partial Thromboplastin Time 22.2 sec (22.0-30.0)
[2023-08-20 19:12] LABS: NT-Pro-B-Type Natriuretic Pept 498 pg/mL
--- NOTE | 2023-08-20 20:10 | CT ---
CTA CHEST EXAMINATION TYPE: CT angio chest DATE OF EXAM: 08/20/2023 INDICATION: elevated d-dimer, SOB CT DLP: 1389.2 mGycm, Automated exposure control for dose reduction was used. CONTRAST: Patient injected with 100 ml mL of Isovue 370. COMPARISON: 06/02/2023 TECHNIQUE: CT of the chest is performed on a spiral scan at 2 mm thick sections. Study is performed with intravenous contrast timed for evaluation for pulmonary embolism. This will limit additional po rtions of the evaluation. 3-D MIP images reconstructed by the technologist are reviewed on the compu ter in the coronal and sagittal planes. FINDINGS: No persistent filling defects are evident to suggest an acute pulmonary embolism. No mediastinal or hilar adenopathy enlarged by CT criteria is evident. The ascending aorta diameter at the level of the main pulmonary artery is 4.0 cm. The main pulmonary artery diameter at the bifurcation is 3.1 cm. Small bilateral pleural effusions are present. Some adjacent atelectasis may be present. Limited CT sections were through the upper abdomen. Upper abdomen appears unremarkable. IMPRESSION: 1. Bibasilar infiltrates. Correlate for atelectasis or pneumonia. 2. No acute pulmonary embolism.
[2023-08-20] MEDS ORDERED: NITROGLYCERIN SL TABS 0.4 MG TAB SUBLINGUAL PRN (20:20)
[2023-08-20] MEDS ORDERED: PANTOPRAZOLE 40 MG TABLET PO PRN (20:21)
[2023-08-20] MEDS: ATORVASTATIN 40 MG TAB PO SCH (21:16)
[2023-08-20] MEDS: ERGOCALCIFEROL 1,250 MCG (50,000 IU) CAPSULE PO SCH (21:16)
[2023-08-20] MEDS: metFORMIN 500 MG TAB PO SCH (21:17)
[2023-08-20] MEDS: IBUPROFEN 600 MG TAB PO PRN (21:17)
[2023-08-20] MEDS: LORATADINE 10 MG TAB PO SCH (21:17)
[2023-08-21] MEDS: NITROGLYCERIN OINT 1 INCH/GM PACKET TOPICAL SCH (00:15)
--- NOTE | 2023-08-21 08:03 | P.CRDCN ---
History of Present Illness Consult date: 08/21/23 Chief complaint: Shortness of breath and the chest discomfort History of present illness: This is a 57-year-old female patient with a past medical history significant for morbid obesity as well as diabetes and hypertension and dyslipidemia and recent diagnosis of cardiomyopathy with a heart catheterization subsequently in May 2023 showed mild nonobstructive coronary artery disease presented to the hospital complaining of shortness of breath and chest discomfort. She was in her usual state of health till yesterday when she started experiencing shortness of breath associated with chest tightness. She was sitting at home. She stated that she has been compliant with her medications except for the day before she did not take her medications. No fever and no chills. No cough or sputum production. No lower extremities edema no change in the weight. She decided to come to the hospital where she underwent further investigation including chest x-ray showed bilateral infiltrate concerning for underlying pneumonia and troponin came in to be slightly abnormal but appears to be flat across the board and also NT proBNP came in to be around 400. She does not seems in any overt heart failure at this point. The physical examination is remarkable for regular rhythm with distant heart sounds and soft systolic murmur and clear breathing sounds bilaterally and no edema was noted in the lower extremities. The patient underwent a heart catheterization in May 2023 and that showed mild CAD. Assessment Acute hypoxic respiratory failure Bilateral pneumonia Recent diagnosis of cardiomyopathy Mild CAD on recent heart catheterization Multiple comorbid conditions Plan Restart the patient back on the cardiomyopathy medications Obtain an echocardiogram to assess the current status of the ejection fraction No need for invasive workup at this point. Possible right heart catheterization if the clinical situation did not get better Further recommendation to follow the echocardiogram Past Medical History Past Medical History: Cancer, Diabetes Mellitus, GERD/Reflux, Hyperlipidemia, Hypertension, Sleep Apnea/CPAP/BIPAP Additional Past Medical History / Comment(s): obesity , hx anemia, mild sleep apnea (no machine), heart murmur, Has Lap Band (states no fluid), LT BREAST CANCER DX-11/2020-received radiation, Last dose 2020. Following with Dr Mabry for blood sugars. recent influenza infection - Dr Gomez aware. heart racing recently. recent stress test. History of Any Multi-Drug Resistant Organisms: None Reported Past Surgical History: Bariatric Surgery, Breast Surgery, Section, Cholecystectomy, Heart Catheterization Additional Past Surgical History / Comment(s): left breast lumpectomy 11-5-21,Lap band August 2004, rt oopherectomy 1993, Left oopherectomy 2012. Heart Cath ([facility] -Mar 2017)-clear, COLONOSCOPY Past Anesthesia/Blood Transfusion Reactions: No Reported Reaction Additional Past Anesthesia/Blood Transfusion Reaction / Comment(s): states long time to wake up.no hx blood transfusion Past Psychological History: Anxiety Smoking Status: Never smoker Past Alcohol Use History: None Reported Past Drug Use History: None Reported - Past Family History Mother Family Medical History: Cancer Additional Family Medical History / Comment(s): Rectal cancer Medications and Allergies Home Medications Medication Instructions Recorded Confirmed Type metFORMIN HCL [Glucophage] 1,000 mg PO BID 01/23/19 08/20/23 History Cetirizine HCl [Zyrtec] 10 mg PO HS 01/15/21 08/20/23 History Venlafaxine HCl [Effexor XR] 150 mg PO DAILY 02/26/21 08/20/23 History Insulin Regular, Human [humuLIN R 350 unit SQ AC-BID@0800,1300 05/02/22 08/20/23 History U-500 Kwikpen] Aspirin 81 mg PO DAILY 05/25/23 08/20/23 History Metoprolol Succinate [Metoprolol 25 mg PO DAILY 05/30/23 08/20/23 History Succinate ER] Omeprazole 40 mg PO HS PRN 05/30/23 08/20/23 History Pioglitazone HCl 15 mg PO DAILY 05/30/23 08/20/23 History ALPRAZolam [Xanax] 0.25 mg PO BID PRN 06/02/23 08/20/23 History Albuterol Sulfate [Albuterol 2 puff PO RT-Q4H PRN 06/02/23 08/20/23 History Sulfate Hfa] Ibuprofen [Advil] 600 mg PO Q6HR PRN 06/02/23 08/20/23 History Losartan Potassium [Cozaar] 100 mg PO DAILY 06/02/23 08/20/23 History Rosuvastatin [Crestor] 20 mg PO HS 06/02/23 08/20/23 History Spironolactone [Aldactone] 25 mg PO DAILY 30 Days #30 tab 06/04/23 08/20/23 Rx Chlorhexidine Gluconate [Peridex] 15 ml PO BID 08/20/23 08/20/23 History Ergocalciferol (Vitamin D2) 1,250 mcg PO ALEXANDRA 08/20/23 08/20/23 History [Drisdol (50,000 Iu)] Insulin Regular, Human [humuLIN R 250 unit SQ AC-SUPPER 08/20/23 08/20/23 History U-500 Kwikpen] Tirzepatide [Mounjaro] 12.5 mg SQ MO 08/20/23 08/20/23 History Allergies Allergy/AdvReac Type Severity Reaction Status Date / Time codeine AdvReac Nausea & Verified 08/20/23 18:24 Vomiting hydrocodone [From Vicodin] AdvReac Nausea & Verified 08/20/23 18:24 Vomiting Physical Exam Vitals: Vital Signs Temp Pulse Resp BP Pulse Ox 08/21/23 07:00 83 16 153/72 96 08/21/23 06:00 88 16 154/90 98 08/21/23 05:00 88 20 106/77 96 08/21/23 04:00 86 14 126/82 96 08/21/23 03:00 97.6 F 91 18 104/69 95 08/21/23 01:36 97.8 F 14 93/59 97 08/21/23 00:07 86 16 104/85 96 08/20/23 23:00 90 20 132/89 96 08/20/23 22:00 93 12 115/90 96 08/20/23 21:22 93 17 115/90 96 08/20/23 21:04 98 19 121/71 95 08/20/23 19:48 98 14 133/78 95 08/20/23 18:39 93 20 118/76 97 08/20/23 17:35 98.2 F 102 H 24 140/83 96 Intake and Output 08/20/23 08/21/23 08/21/23 22:59 06:59 14:59 Other: Weight 147.418 kg Results 08/20/23 18:28 08/20/23 18:28 Cardiac Enzymes 08/20/23 08/20/23 08/20/23 Range/Units 18:28 18:28 21:49 AST 23 (14-36) U/L Troponin I 0.046 H* 0.086 H* (0.000-0.034) ng/mL 08/21/23 Range/Units 00:23 AST (14-36) U/L Troponin I 0.102 H* (0.000-0.034) ng/mL Coagulation 08/20/23 Range/Units 18:28 PT 10.3 (10.0-12.5) sec APTT 22.2 (22.0-30.0) sec CBC 08/20/23 Range/Units 18:28 WBC 11.2 H (3.8-10.6) k/uL RBC 4.48 (3.80-5.40) m/uL Hgb 11.7 (11.4-16.0) gm/dL Hct 38.1 (34.0-46.0) % Plt Count 211 (150-450) k/uL Comprehensive Metabolic Panel 08/20/23 Range/Units 18:28 Sodium 133 L (137-145) mmol/L Potassium 5.0 (3.5-5.1) mmol/L Chloride 107 (98-107) mmol/L Carbon Dioxide 16 L (22-30) mmol/L BUN 14 (7-17) mg/dL Creatinine 0.59 (0.52-1.04) mg/dL Glucose 473 H (74-99) mg/dL Calcium 8.7 (8.4-10.2) mg/dL AST 23 (14-36) U/L ALT 18 (4-34) U/L Alkaline Phosphatase 103 (38-126) U/L Total Protein 6.6 (6.3-8.2) g/dL Albumin 3.6 (3.5-5.0) g/dL Current Medications Generic Name Dose Route Start Last Admin Trade Name Freq PRN Reason Stop Dose Admin Alprazolam 0.25 mg 08/20/23 20:21 Alprazolam 0.25 Mg Tab PO BID PRN Anxiety Aspirin 325 mg 08/21/23 09:00 Aspirin 325 Mg Tab PO DAILY KYLE Atorvastatin Calcium 40 mg 08/20/23 21:00 08/20/23 21:16 Atorvastatin 40 Mg Tab PO 40 mg HS KYLE Administration Ergocalciferol 1,250 mcg 08/20/23 21:00 08/20/23 21:16 Ergocalciferol 1,250 Mcg (50,000 Iu) Capsule PO 1,250 mcg ALEXANDRA KYLE Administration Ibuprofen 600 mg 08/20/23 20:21 08/21/23 03:18 Ibuprofen 600 Mg Tab PO 600 mg Q6HR PRN Administration Pain Loratadine 10 mg 08/20/23 21:00 08/20/23 21:17 Loratadine 10 Mg Tab PO 10 mg HS KYLE Administration Losartan Potassium 100 mg 08/21/23 09:00 Losartan 50 Mg Tab PO DAILY KYLE Metformin HCl 1,000 mg 08/20/23 21:00 08/20/23 21:17 Metformin 500 Mg Tab PO 1,000 mg AC-BID KYLE Administration Metoprolol Succinate 25 mg 08/21/23 09:00 Metoprolol Succinate (Er) 25 Mg Tab.Er.24h PO DAILY KYLE Nitroglycerin 0.4 mg 08/20/23 20:20 Nitroglycerin Sl Tabs 0.4 Mg Tab SUBLINGUAL Q5M PRN Chest Pain Nitroglycerin 1 inch 08/21/23 00:00 08/21/23 05:09 Nitroglycerin Oint 1 Inch/Gm Packet TOPICAL Not Given Q6HR [facility] Pantoprazole Sodium 40 mg 08/20/23 20:21 Pantoprazole 40 Mg Tablet PO HS PRN GI Upset Pioglitazone HCl 15 mg 08/21/23 09:00 Pioglitazone 15 Mg Tab PO DAILY [facility] Spironolactone 25 mg 08/21/23 09:00 Spironolactone 25 Mg Tab PO DAILY [facility] Venlafaxine HCl 150 mg 08/21/23 09:00 Venlafaxine Hcl Er 150 Mg Cap PO DAILY [facility] Intake and Output 08/20/23 08/21/23 08/21/23 22:59 06:59 14:59 Other: Weight 147.418 kg 08/20/23 18:28 08/20/23 18:28
[2023-08-21] MEDS: AZITHROMYCIN 500 MG TAB PO SCH (10:21)
[2023-08-21] MEDS: ASPIRIN 325 MG TAB PO SCH (10:21)
[2023-08-21] MEDS: METOPROLOL SUCCINATE (ER) 25 MG TAB.ER.24H PO SCH (10:22)
[2023-08-21] MEDS: SPIRONOLACTONE 25 MG TAB PO SCH (10:22)
[2023-08-21] MEDS: VENLAFAXINE HCL ER 150 MG CAP PO SCH (10:22)
[2023-08-21] MEDS: LOSARTAN 50 MG TAB PO SCH (10:22)
--- NOTE | 2023-08-21 10:22 | P.HPIM ---
History of Present Illness Patient is a pleasant 52-year-old female came with complaints of shortness of breath cough without any significant sputum production. Patient was also complaining of chest pressure-like sensation because of which cardiology evaluate the patient patient has mild elevated troponins although flat trend patient had recent cardiac catheterization 26 May which showed clean coronaries. Patient had Cardiomyopathy ejection fraction is not known as per the cardiac cath report patient has severely decreased LV function as well as increased LV diastolic pressures. Patient does not have any significant swelling in bilateral lower limbs patient does not have any orthopnea or paroxysmal nocturnal dyspnea. Chest CT was done to rule out pulmonary embolism which did not show any PE patient does not have any wheezing and denies any smoking history denies any COPD history of asthma history. Patient has some nonspecific and infiltrate but not consistent with pneumonia will obtain a procalcitonin level. Patient may have sleep apnea which was never diagnosed with previous diagnostic sleep studies were inconclusive. As etiology of her shortness of breath is not clear will consult pulmonary. Patient was started on azithromycin continue breathing treatments today if we can get her off oxygen patient can be discharged tomorrow. Patient is presently on full dose of oxygen does not use any oxygen at home. REVIEW OF SYSTEMS: CONSTITUTIONAL: No fever, no malaise, no fatigue. HEENT: No recent visual problems or hearing problems. Denied any sore throat. CARDIOVASCULAR: No chest pain, orthopnea, PND, no palpitations, no syncope. PULMONARY: no hemoptysis. GASTROINTESTINAL: No diarrhea, no nausea, no vomiting, no abdominal pain. NEUROLOGICAL: No headaches, no weakness, no numbness. HEMATOLOGICAL: Denies any bleeding or petechiae. GENITOURINARY: Denies any burning micturition, frequency, or urgency. MUSCULOSKELETAL/RHEUMATOLOGICAL: Denies any joint pain, swelling, or any muscle pain. ENDOCRINE: Denies any polyuria or polydipsia. The rest of the 14-point review of systems is negative. PHYSICAL EXAMINATION: GENERAL: The patient is alert and oriented x3, not in any acute distress. Well developed, well nourished. Obese HEENT: Pupils are round and equally reacting to light. EOMI. No scleral icterus. No conjunctival pallor. Normocephalic, atraumatic. No pharyngeal erythema. No thyromegaly. CARDIOVASCULAR: S1 and S2 present. No murmurs, rubs, or gallops. PULMONARY: Chest is clear to auscultation, no wheezing or crackles. ABDOMEN: Soft, nontender, nondistended, normoactive bowel sounds. No palpable organomegaly. MUSCULOSKELETAL: No joint swelling or deformity. EXTREMITIES: No cyanosis, clubbing, or pedal edema. NEUROLOGICAL: Gross neurological examination did not reveal any focal deficits. SKIN: No rashes. Assessment and plan -Shortness of breath, acute hypoxic respiratory failure etiology is not clear probably secondary to obesity hypoventilation syndrome/obstructive sleep apnea along with mild bronchitis. Patient was started on azithromycin breathing treatments and will avoid steroids as she has uncontrolled blood sugars and patient does not tolerate steroids very well and are not required at this time. Pulmonology will be consulted -Congestive heart failure chronic systolic as well as diastolic dysfunction ejection fraction is not known patient is euvolemic not in heart failure exacerbation at this time -Type 2 diabetes mellitus requiring high doses of insulin patient is also on Toujeo which she is also on high-dose of insulin and pioglitazone pioglitazone will be discontinued because of her cardiomyopathy. Patient is not a good candidate for that metformin is being held at this time as she received contrast yesterday. -Gastroesophageal reflux disease -Hypertension -Possible sleep apnea and diagnosed -Obesity patient had a bariatric surgery in the past with a lap band -Troponin elevation mild and flat probably not type I ST elevation [place] cardiology evaluated the patient DVT prophylaxis: Lovenox Past Medical History Past Medical History: Cancer, Diabetes Mellitus, GERD/Reflux, Hyperlipidemia, H ypertension, Sleep Apnea/CPAP/BIPAP Additional Past Medical History / Comment(s): obesity , hx anemia, mild sleep apnea (no machine), heart murmur, Has Lap Band (states no fluid), LT BREAST CANCER DX-11/2020-received radiation, Last dose 2020. Following with Dr Mabry for blood sugars. recent influenza infection - Dr Gomez aware. heart racing recently. recent stress test. History of Any Multi-Drug Resistant Organisms: None Reported Past Surgical History: Bariatric Surgery, Breast Surgery, Section, Cholecystectomy, Heart Catheterization Additional Past Surgical History / Comment(s): left breast lumpectomy 01-22-21,Lap band August 2004, rt oopherectomy 1993, Left oopherectomy 2012. H eart Cath ([facility] -Mar 2017)-clear, COLONOSCOPY Past Anesthesia/Blood Transfusion Reactions: No Reported Reaction Additional Past Anesthesia/Blood Transfusion Reaction / Comment(s): states long time to wake up.no hx blood transfusion Past Psychological History: Anxiety Smoking Status: Never smoker Past Alcohol Use History: None Reported Past Drug Use History: None Reported - Past Family History Mother Family Medical History: Cancer Additional Family Medical History / Comment(s): Rectal cancer Medications and Allergies Home Medications Medication Instructions Recorded Confirmed Type metFORMIN HCL [Glucophage] 1,000 mg PO BID 01/23/19 08/20/23 History Cetirizine HCl [Zyrtec] 10 mg PO HS 01/15/21 08/20/23 History Venlafaxine HCl [Effexor XR] 150 mg PO DAILY 02/26/21 08/20/23 History Insulin Regular, Human [humuLIN R 350 unit SQ AC-BID@0800,1300 05/02/22 08/20/23 History U-500 Kwikpen] Aspirin 81 mg PO DAILY 05/25/23 08/20/23 History Metoprolol Succinate [Metoprolol 25 mg PO DAILY 05/30/23 08/20/23 History Succinate ER] Omeprazole 40 mg PO HS PRN 05/30/23 08/20/23 History Pioglitazone HCl 15 mg PO DAILY 05/30/23 08/20/23 History ALPRAZolam [Xanax] 0.25 mg PO BID PRN 06/02/23 08/20/23 History Albuterol Sulfate [Albuterol 2 puff PO RT-Q4H PRN 06/02/23 08/20/23 History Sulfate Hfa] Ibuprofen [Advil] 600 mg PO Q6HR PRN 06/02/23 08/20/23 History Losartan Potassium [Cozaar] 100 mg PO DAILY 06/02/23 08/20/23 History Rosuvastatin [Crestor] 20 mg PO HS 06/02/23 08/20/23 History Spironolactone [Aldactone] 25 mg PO DAILY 30 Days #30 tab 06/04/23 08/20/23 Rx Chlorhexidine Gluconate [Peridex] 15 ml PO BID 08/20/23 08/20/23 History Ergocalciferol (Vitamin D2) 1,250 mcg PO ALEXANDRA 08/20/23 08/20/23 History [Drisdol (50,000 Iu)] Insulin Regular, Human [humuLIN R 250 unit SQ AC-SUPPER 08/20/23 08/20/23 History U-500 Kwikpen] Tirzepatide [Mounjaro] 12.5 mg SQ MO 08/20/23 08/20/23 History Allergies Allergy/AdvReac Type Severity Reaction Status Date / Time codeine AdvReac Nausea & Verified 08/20/23 18:24 Vomiting hydrocodone [From Vicodin] AdvReac Nausea & Verified 08/20/23 18:24 Vomiting Physical Exam Vitals: Vital Signs Temp Pulse Resp BP Pulse Ox 08/21/23 08:01 96 08/21/23 07:00 83 16 153/72 96 08/21/23 06:00 88 16 154/90 98 08/21/23 05:00 88 20 106/77 96 08/21/23 04:00 86 14 126/82 96 08/21/23 03:00 97.6 F 91 18 104/69 95 08/21/23 01:36 97.8 F 14 93/59 97 08/21/23 00:07 86 16 104/85 96 08/20/23 23:00 90 20 132/89 96 08/20/23 22:00 93 12 115/90 96 08/20/23 21:22 93 17 115/90 96 08/20/23 21:04 98 19 121/71 95 08/20/23 19:48 98 14 133/78 95 08/20/23 18:39 93 20 118/76 97 08/20/23 17:35 98.2 F 102 H 24 140/83 96 Intake and Output 08/20/23 08/21/23 08/21/23 22:59 06:59 14:59 Other: Weight 147.418 kg Results CBC & Chem 7: 08/20/23 18:28 08/20/23 18:28 Labs: Abnormal Lab Results - Last 24 Hours (Table) 08/20/23 08/20/23 08/20/23 Range/Units 18:28 18:28 18:28 WBC 11.2 H (3.8-10.6) k/uL MCHC 30.6 L (31.0-37.0) g/dL RDW 16.1 H (11.5-15.5) % Neutrophils # 8.0 H (1.3-7.7) k/uL D-Dimer 0.79 H (<0.60) mg/L FEU Sodium 133 L (137-145) mmol/L Carbon Dioxide 16 L (22-30) mmol/L Glucose 473 H (74-99) mg/dL Troponin I (0.000-0.034) ng/mL 08/20/23 08/20/23 08/21/23 Range/Units 18:28 21:49 00:23 WBC (3.8-10.6) k/uL MCHC (31.0-37.0) g/dL RDW (11.5-15.5) % Neutrophils # (1.3-7.7) k/uL D-Dimer (<0.60) mg/L FEU Sodium (137-145) mmol/L Carbon Dioxide (22-30) mmol/L Glucose (74-99) mg/dL Troponin I 0.046 H* 0.086 H* 0.102 H* (0.000-0.034) ng/mL
[2023-08-21] MEDS ORDERED: PANTOPRAZOLE 40 MG TABLET PO PRN (10:23)
[2023-08-21 12:12] LABS: Glucose,Whole Blood 396 mg/dL (70-110)
[2023-08-21] MEDS: NON FORMULARY DRUG (Insulin Regular, Human [Humulin R U-500 Kwikpen] 500 UNIT/ML Insuln.Pe SQ SCH ×2 (13:00→16:55)
[2023-08-21] MEDS: INSULIN ASPART (NovoLOG) 100 UNIT/ML VIAL SQ SCH (15:32)
[2023-08-21] MEDS: ENOXAPARIN 60 MG/0.6 ML SYRINGE SQ SCH (15:34)
[2023-08-21] MEDS: PIOGLITAZONE 15 MG TAB PO SCH (15:46)
--- NOTE | 2023-08-21 16:02 | P.CNPUL ---
History of Present Illness Consult date: 08/21/23 Requesting physician: Madai Wynn Reason for consult: dyspnea, chest pain, hypoxemia Chief complaint: Shortness of breath, chest tightness. History of present illness: Pulmonary consult dated August 21, 2023. 57-year-old female who has a history of diabetes, type II, breast cancer, cardiomyopathy, presents to the emergency department on August 19, complaining of chest discomfort, and shortness of breath. She describes primarily chest tightness rather than pain. She also states that with any activity, she becomes short of breath. She states that she has had this before. She does have a hist ory of dilated cardiomyopathy as well. Other medical history includes hypertension, hyperlipidemia, and obesity. Currently, the patient is resting comfortably, in the emergency department, room 23. She is on 2 L of oxygen, and not receiving any IV fluids. Her primary care physician is Dr. Quinn Olivares. Laboratory data includes a white count 11.2, hemoglobin 11.7, hematocrit 38.1, and a platelet count of 211,000. D-dimer was 0.79. Coagulation studies were normal. Sodium 133, potassium 5, chlorides 107, CO2 16, BUN and creatinine were 14 and 0.59. Glucose was 396. Troponins were 0.0460.086 and 0.102. N-terminal proBNP was 498. Procalcitonin level was normal at 0.08. Chest x-ray shows cardiomegaly, and fluid overload. CTA was negative for pulmonary embolism. Small bilateral effusions were noted. EKG showed normal sinus rhythm. Review of Systems REVIEW OF SYSTEMS: CONSTITUTIONAL: [Negative.] NEUROLOGIC: [ Negative.] HEENT: [ Negative.] CARDIAC: Chest tightness. Mild lower extremity edema. PULMONARY: Shortness of breath. GI: [Negative.] : [Negative.] RHEUMATOLOGIC: [ Negative.] IMMUNOLOGIC: [ Negative.] ENDOCRINE: [Negative. ] DERMATOLOGIC: [Negative.] Past Medical History Past Medical History: Cancer, Diabetes Mellitus, GERD/Reflux, Hyperlipidemia, Hypertension, Sleep Apnea/CPAP/BIPAP Additional Past Medical History / Comment(s): obesity , hx anemia, mild sleep apnea (no machine), heart murmur, Has Lap Band (states no fluid), LT BREAST CANCER DX-11/2020-received radiation, Last dose 2020. Following with Dr Mabry for blood sugars. recent influenza infection - Dr Gomez aware. heart racing recently. recent stress test. History of Any Multi-Drug Resistant Organisms: None Reported Past Surgical History: Bariatric Surgery, Breast Surgery, Section, Cholecystectomy, Heart Catheterization Additional Past Surgical History / Comment(s): left breast lumpectomy 01-22-21,Lap band August 2004, rt oopherectomy 1993, Left oopherectomy 2012. Heart Cath ([facility] -Mar 2017)-clear, COLONOSCOPY Past Anesthesia/Blood Transfusion Reactions: No Reported Reaction Additional Past Anesthesia/Blood Transfusion Reaction / Comment(s): states long time to wake up.no hx blood transfusion Past Psychological History: Anxiety Smoking Status: Never smoker Past Alcohol Use History: None Reported Past Drug Use History: None Reported - Past Family History Mother Family Medical History: Cancer Additional Family Medical History / Comment(s): Rectal cancer Medications and Allergies Home Medications Medication Instructions Recorded Confirmed Type metFORMIN HCL [Glucophage] 1,000 mg PO BID 01/23/19 08/20/23 History Cetirizine HCl [Zyrtec] 10 mg PO HS 01/15/21 08/20/23 History Venlafaxine HCl [Effexor XR] 150 mg PO DAILY 02/26/21 08/20/23 History Insulin Regular, Human [humuLIN R 350 unit SQ AC-BID@0800,1300 05/02/22 08/20/23 History U-500 Kwikpen] Aspirin 81 mg PO DAILY 05/25/23 08/20/23 History Metoprolol Succinate [Metoprolol 25 mg PO DAILY 05/30/23 08/20/23 History Succinate ER] Omeprazole 40 mg PO HS PRN 05/30/23 08/20/23 History Pioglitazone HCl 15 mg PO DAILY 05/30/23 08/20/23 History ALPRAZolam [Xanax] 0.25 mg PO BID PRN 06/02/23 08/20/23 History Albuterol Sulfate [Albuterol 2 puff PO RT-Q4H PRN 06/02/23 08/20/23 History Sulfate Hfa] Ibuprofen [Advil] 600 mg PO Q6HR PRN 06/02/23 08/20/23 History Losartan Potassium [Cozaar] 100 mg PO DAILY 06/02/23 08/20/23 History Rosuvastatin [Crestor] 20 mg PO HS 06/02/23 08/20/23 History Spironolactone [Aldactone] 25 mg PO DAILY 30 Days #30 tab 06/04/23 08/20/23 Rx Chlorhexidine Gluconate [Peridex] 15 ml PO BID 08/20/23 08/20/23 History Ergocalciferol (Vitamin D2) 1,250 mcg PO ALEXANDRA 08/20/23 08/20/23 History [Drisdol (50,000 Iu)] Insulin Regular, Human [humuLIN R 250 unit SQ AC-SUPPER 08/20/23 08/20/23 History U-500 Kwikpen] Tirzepatide [Mounjaro] 12.5 mg SQ MO 08/20/23 08/20/23 History Allergies Allergy/AdvReac Type Severity Reaction Status Date / Time codeine AdvReac Nausea & Verified 08/20/23 18:24 Vomiting hydrocodone [From Vicodin] AdvReac Nausea & Verified 08/20/23 18:24 Vomiting Physical Exam Osteopathic Statement: *. No significant issues noted on an osteopathic structural exam other than those noted in the History and Physical/Consult. Vitals: Vital Signs Temp Pulse Pulse Resp BP BP Pulse Ox 08/21/23 12:00 87 16 100/78 96 08/21/23 10:20 93 16 148/81 97 08/21/23 08:01 96 08/21/23 07:00 83 16 153/72 96 08/21/23 06:00 88 16 154/90 98 08/21/23 05:00 88 20 106/77 96 08/21/23 04:00 86 14 126/82 96 08/21/23 03:00 97.6 F 91 18 104/69 95 08/21/23 01:36 97.8 F 14 93/59 97 08/21/23 00:07 86 16 104/85 96 08/20/23 23:00 90 20 132/89 96 08/20/23 22:00 93 12 115/90 96 08/20/23 21:22 93 17 115/90 96 08/20/23 21:04 98 19 121/71 95 08/20/23 19:48 98 14 133/78 95 08/20/23 18:39 93 20 118/76 97 08/20/23 17:35 98.2 F 102 H 24 140/83 96 No acute distress, oriented 3. Currently on 2 L of oxygen. No respiratory distress. HEENT examination is grossly unremarkable. Mucous membranes are moist. No oral lesions. Neck supple. Full range of motion. No adenopathy thyromegaly or neck vein distention. Cardiovascular examination reveals regular rhythm rate. S1-S2 normal. No S3 or S4. No discernible murmur noted. Heart rate 80 bpm. Heart sounds are distant. Lungs reveal distant heart sounds. Breath sounds are equal bilaterally. No distinct rhonchi or wheezes or crackles are noted. Abdomen soft without bowel sounds. No masses or tenderness. Abdomen is obese. Extremities are intact. No cyanosis or clubbing. Mild lower extremity edema. Skin is without rash or lesion. Neurologic examination is brief but nonfocal. Results - Laboratory Findings CBC and BMP: 08/20/23 18:28 08/20/23 18:28 PT/INR, D-dimer PT 10.3 sec (10.0-12.5) 08/20/23 18:28 INR 0.9 (<1.2) 08/20/23 18:28 D-Dimer 0.79 mg/L FEU (<0.60) H 08/20/23 18:28 Abnormal lab findings: Abnormal Labs 08/20/23 08/20/23 08/20/23 18:28 18:28 18:28 WBC 11.2 H MCHC 30.6 L RDW 16.1 H Neutrophils # 8.0 H D-Dimer 0.79 H Sodium 133 L Carbon Dioxide 16 L Glucose 473 H POC Glucose (mg/dL) Troponin I 08/20/23 08/20/23 08/21/23 18:28 21:49 00:23 WBC MCHC RDW Neutrophils # D-Dimer Sodium Carbon Dioxide Glucose POC Glucose (mg/dL) Troponin I 0.046 H* 0.086 H* 0.102 H* 08/21/23 12:10 WBC MCHC RDW Neutrophils # D-Dimer Sodium Carbon Dioxide Glucose POC Glucose (mg/dL) 396 H Troponin I - Diagnostic Findings Chest x-ray: image reviewed CT scan - chest: image reviewed Assessment and Plan Assessment: Acute chest tightness, and shortness of breath, of unclear etiology. Mild fluid overload in a patient with cardiomyopathy, is the most likely explanation, given her chest x-ray. No evidence of pulmonary embolism on CTA. No evidence of intrinsic pulmonary disease. History of type 2 diabetes mellitus. History of breast cancer. History of dilated cardiomyopathy. Morbid obesity. History of hyperlipidemia. History of hypertension. History of obstructive sleep apnea syndrome. Plan: Plan dated August 21, 2023. The patient is seen in the emergency department. She is on 2 L. The patient's procalcitonin level is normal. Antibiotic should be discontinued. The patient does not need corticosteroids in my opinion. I suspect a likely diagnosis of her shortness of breath, relates to her history of cardiomyopathy, and her chest x-ray is consistent with mild fluid overload. Her CTA was negative for pulmona ry embolism. There were small bilateral pleural effusions. I do not suspect any intrinsic pulmonary disease. The patient is a lifelong non-smoker. In addition, she did have some trace lower extremity edema. Time with Patient: Greater than 30
[2023-08-21 16:52] LABS: Glucose,Whole Blood 350 mg/dL (70-110)
[2023-08-21 19:30] LABS: Chol/HDL Ratio 4.18 Ratio; LDL Cholesterol,Calculated 79.6 mg/dL (0.0-131.0)
[2023-08-22 03:45] LABS: Glucose,Whole Blood 65 mg/dL (70-110)
[2023-08-22 06:04] LABS: Glucose,Whole Blood 96 mg/dL (70-110)
[2023-08-22 11:42] LABS: Glucose,Whole Blood 126 mg/dL (70-110)
--- NOTE | 2023-08-22 12:07 | P.PN ---
Subjective Progress Note Date: 08/22/23 Patient is a pleasant 52-year-old female came with complaints of shortness of breath cough without any significant sputum production. Patient was also complaining of chest pressure-like sensation because of which cardiology evaluate the patient patient has mild elevated troponins although flat trend patient had recent cardiac catheterization 26 May which showed clean coronaries. Patient had Cardiomyopathy ejection fraction is not known as per the cardiac cath report patient has severely decreased LV function as well as increased LV diastolic pressures. Patient does not have any significant swell ing in bilateral lower limbs patient does not have any orthopnea or paroxysmal nocturnal dyspnea. Chest CT was done to rule out pulmonary embolism which did not show any PE patient does not have any wheezing and denies any smoking history denies any COPD history of asthma history. Patient has some nonspecific and infiltrate but not consistent with pneumonia will obtain a procalcitonin level. Patient may have sleep apnea which was never diagnosed with previous diagnostic sleep studies were inconclusive. As etiology of her shortness of breath is not clear will consult pulmonary. Patient was started on azithromycin continue breathing treatments today if we can get her off oxygen patient can be discharged tomorrow. Patient is presently on full dose of oxygen does not use any oxygen at home. 08/22/2023 Patient is evaluated today in follow up, sitting up in the chair. Continues to report shortness of breath and difficulty with deep inspiration. She is having some pressure in her chest. She was able to be weaned off the oxygen at rest however is reporting worsening shortness of breath when she is up ambulating. Her lungs are clear. Echocariogram is currently pending. Her blood sugar is improved. Lipid panel done reveals triglycerides of 241, cholesterol 168, LDL 48.2, HDL 40.20. Procal was normal. Review of Systems Constitutional: Denied any fatigue denied any fever. Cardio vascular: denied any chest pain, palpitations Gastrointestinal: denied any nausea, vomiting, diarrhea Pulmonary: Reports shortness of breath, no cough Neurologic denied any new focal deficits All inpatient medications were reviewed and appropriate changes in these medications as dictated in the interval history and assessment and plan. PHYSICAL EXAMINATION: GENERAL: The patient is alert and oriented x3, not in any acute distress. Well developed, well nourished. Obese HEENT: Pupils are round and equally reacting to light. EOMI. No scleral icterus. No conjunctival pallor. Normocephalic, atraumatic. No pharyngeal erythema. No thyromegaly. CARDIOVASCULAR: S1 and S2 present. No murmurs, rubs, or gallops. PULMONARY: Chest is clear to auscultation, no wheezing or crackles. ABDOMEN: Soft, nontender, nondistended, normoactive bowel sounds. No palpable organomegaly. MUSCULOSKELETAL: No joint swelling or deformity. EXTREMITIES: No cyanosis, clubbing, or pedal edema. NEUROLOGICAL: Gross neurological examination did not reveal any focal deficits. SKIN: No rashes. Assessment and plan -Shortness of breath, acute hypoxic respiratory failure felt to be a component of mild volume overload. Although lungs are clear and patient appears euvolemic. -Congestive heart failure chronic systolic as well as diastolic dysfunction ejection fraction is not known patient is euvolemic, Pending echocardiogram and further cardiac recommendations. -Type 2 diabetes mellitus requiring high doses of insulin patient is also on Toujeo which she is also on high-dose of insulin and pioglitazone pioglitazone will be discontinued because of her cardiomyopathy. Metformin resumed today. -Gastroesophageal reflux disease -Hypertension -Possible sleep apnea, not diagnosed would benefit from sleep study on discharge. -Obesity patient had a bariatric surgery in the past with a lap band -Troponin elevation mild and flat probably not type I ST elevation [place] cardiology evaluated the patient GI prophylaxis DVT prophylaxis The impression and plan of care has been dictated by Lisa Hunter, Nurse Practitioner as directed. Dr. Amilcar MD I have performed a history and physical examination and medical decision making of this patient, discussed the same with the dictator, and agree with the dictators assessment and plan as written, documented as a scribe. Based on total visit time, I have performed more than 50% of this visit. Objective - Vital Signs Vital signs: Vital Signs Temp 97.4 F L 08/22/23 08:00 Pulse 93 08/22/23 11:49 Resp 18 08/22/23 11:49 BP 128/59 08/22/23 11:49 Pulse Ox 99 08/22/23 11:49 FiO2 Intake & Output 08/21/23 08/22/23 08/22/23 18:59 06:59 18:59 Intake Total 540 420 Balance 540 420 Weight 147.418 kg Intake: Oral 540 420 Other: Voiding Method Toilet Toilet # Voids 1 - Labs CBC & Chem 7: 08/20/23 18:28 08/20/23 18:28 Labs: Abnormal Lab Results - Last 24 Hours (Table) 08/21/23 08/21/23 08/21/23 Range/Units 09:29 09:29 12:10 POC Glucose (mg/dL) 396 H (70-110) mg/dL Triglycerides 241.00 H (0.00-149.00) mg/dL VLDL Cholesterol, Calc 48.20 H (5.00-40.00) mg/dL Procalcitonin 0.11 H (0.02-0.09) ng/mL 08/21/23 08/22/23 08/22/23 Range/Units 16:51 03:44 11:41 POC Glucose (mg/dL) 350 H 65 L 126 H (70-110) mg/dL Triglycerides (0.00-149.00) mg/dL VLDL Cholesterol, Calc (5.00-40.00) mg/dL Procalcitonin (0.02-0.09) ng/mL Assessment and Plan Time with Patient: Less than 30
--- NOTE | 2023-08-22 12:19 | P.PN ---
Subjective Progress Note Date: 08/22/23 57-year-old female who has a history of diabetes, type II, breast cancer, cardiomyopathy, presents to the emergency department on August 19, complaining of chest discomfort, and shortness of breath. She describes primarily chest tightness rather than pain. She also states that with any activity, she becomes short of breath. She states that she has had this before. She does have a history of dilated cardiomyopathy as well. Other medical history includes hypertension, hyperlipidemia, and obesity. Currently, the patient is resting comfortably, in the emergency department, room 23. She is on 2 L of oxygen, and not receiving any IV fluids. Her primary care physician is Dr. Quinn Olivares. Laboratory data includes a white count 11.2, hemoglobin 11.7, hematocrit 38.1, and a platelet count of 211,000. D-dimer was 0.79. Coagulation studies were normal. Sodium 133, potassium 5, chlorides 107, CO2 16, BUN and creatinine were 14 and 0.59. Glucose was 396. Troponins were 0.0460.086 and 0.102. N-terminal proBNP was 498. Procalcitonin level was normal at 0.08. Chest x-ray shows cardiomegaly, and fluid overload. CTA was negative for pulmonary embolism. Small bilateral effusions were noted. EKG showed normal sinus rhythm. The patient is seen today August 22, 2023 in follow-up on the selective care unit. She is currently sitting up in a chair. Awake and alert in no acute distress. Maintaining good O2 saturations in the 90s on 2 L/min per nasal cannula. No IV fluids. Glucose 126. She remains on Lovenox for DVT prophylaxis. Echocardiogram pending. Currently on Aldactone. Objective - Vital Signs Vital signs: Vital Signs Temp 97.4 F L 08/22/23 08:00 Pulse 93 08/22/23 11:49 Resp 18 08/22/23 11:49 BP 128/59 08/22/23 11:49 Pulse Ox 99 08/22/23 11:49 FiO2 Intake & Output 08/21/23 08/22/23 08/22/23 18:59 06:59 18:59 Intake Total 540 420 Balance 540 420 Weight 147.418 kg Intake: Oral 540 420 Other: Voiding Method Toilet Toilet # Voids 1 - Exam GENERAL EXAM: Alert, pleasant 57-year-old female, on 2 L nasal cannula, comfortable in no apparent distress. HEAD: Normocephalic. EYES: Normal reaction of pupils, equal size. NOSE: Clear with pink turbinates. THROAT: No erythema or exudates. NECK: No masses, no JVD. CHEST: No chest wall deformity. LUNGS: Equal air entry with no crackles, wheeze, rhonchi or dullness. CVS: S1 and S2 normal with no audible murmur, regular rhythm. ABDOMEN: No hepatosplenomegaly, normal bowel sounds, no guarding or rigidity. SPINE: No scoliosis or deformity SKIN: No rashes CENTRAL NERVOUS SYSTEM: No focal deficits, tone is normal in all 4 extremities. EXTREMITIES: There is no peripheral edema. No clubbing, no cyanosis. Peripheral pulses are intact. - Labs CBC & Chem 7: 08/20/23 18:28 08/20/23 18:28 Labs: Abnormal Lab Results - Last 24 Hours (Table) 08/21/23 08/21/23 08/21/23 Range/Units 09:29 09:29 16:51 POC Glucose (mg/dL) 350 H (70-110) mg/dL Triglycerides 241.00 H (0.00-149.00) mg/dL VLDL Cholesterol, Calc 48.20 H (5.00-40.00) mg/dL Procalcitonin 0.11 H (0.02-0.09) ng/mL 08/22/23 08/22/23 Range/Units 03:44 11:41 POC Glucose (mg/dL) 65 L 126 H (70-110) mg/dL Triglycerides (0.00-149.00) mg/dL VLDL Cholesterol, Calc (5.00-40.00) mg/dL Procalcitonin (0.02-0.09) ng/mL Assessment and Plan Assessment: Acute chest tightness, and shortness of breath, of unclear etiology. Mild fluid overload in a patient with cardiomyopathy, is the most likely explanation, given her chest x-ray. No evidence of pulmonary embolism on CTA. No evidence of intrinsic pulmonary disease. History of type 2 diabetes mellitus. History of breast cancer. History of dilated cardiomyopathy. Morbid obesity. History of hyperlipidemia. History of hypertension. History of obstructive sleep apnea syndrome. Plan: The patient was seen and evaluated Labs and medications reviewed Procalcitonin was negative Antibiotics were discontinued Echocardiogram pending Titrate down/off the FiO2 as tolerated We will continue to follow I have personally seen and examined the patient, performed the documentation and the assessment and plan as written. Number of minutes spent on the visit: 10.
[2023-08-22 13:26] LABS: Anisocytosis Slight; HGB 10.9 gm/dL (11.4-16.0); Hypochromasia Slight; MCH 26.1 pg (25.0-35.0); MCHC 31.2 g/dL (31.0-37.0); MCV 83.7 fL (80.0-100.0); Mean Platelet Volume 9.1; Platelet Count 191 k/uL (150-450); RBC 4.18 m/uL (3.80-5.40); RDW 16.2 % (11.5-15.5); WBC 9.2 k/uL (3.8-10.6)
[2023-08-22 13:48] LABS: African American GFR (CKD) >90 (>60 ml/min/1.73 sqM); Anion Gap 5 mmol/L; Blood Urea Nitrogen 17 mg/dL (7-17); Calcium 9.4 mg/dL (8.4-10.2); Carbon Dioxide 25 mmol/L (22-30); Chloride 107 mmol/L (98-107); Glucose 124 mg/dL (74-99); Non-African American GFR(CKD) >90 (>60 ml/min/1.73 sqM); Potassium 4.6 mmol/L (3.5-5.1); Sodium 137 mmol/L (137-145)
--- NOTE | 2023-08-22 15:38 | P.PN ---
Subjective Progress Note Date: 08/22/23 Chief complaint: Shortness of breath and the chest discomfort History of present illness: This is a 57-year-old female patient with a past medical history significant for morbid obesity as well as diabetes and hypertension and dyslipidemia and recent diagnosis of cardiomyopathy with a heart catheterization subsequently in May 2023 showed mild nonobstructive coronary artery disease presented to the hospital complaining of shortness of breath and chest discomfort. She was in her usual state of health till yesterday when she started experiencing shortness of breath associated with chest tightness. She was sitting at home. She stated that she has been compliant with her medications except for the day before she did not take her medications. No fever and no chills. No cough or sputum production. No lower extremities edema no change in the weight. She decided to come to the hospital where she underwent further investigation including chest x-ray showed bilateral infiltrate concerning for underlying pneumonia and troponin came in to be slightly abnormal but appears to be flat across the board and also NT proBNP came in to be around 400. She does not seems in any overt heart failure at this point. The physical examination is remarkable for regular rhythm with distant heart sounds and soft systolic murmur and clear breathing sounds bilaterally and no edema was noted in the lower extremities. The patient underwent a heart catheterization in May 2023 and that showed mild CAD. 08/21 Patient is seen today in follow-up. She states that she is not really feeling better from yesterday. She is maintained on oral medications. Echocardiogram has been done and report is pending. Repeat blood work reveals hemoglobin of 10.9, potassium 4.6, creatinine 0.59. Examination: Regular rhythm distant heart sounds, soft systolic murmur, clear breath sounds bilaterally, no lower extremity edema. Assessment Acute hypoxic respiratory failure Bilateral pneumonia Recent diagnosis of cardiomyopathy Mild CAD on recent heart catheterization Multiple comorbid conditions Plan Continue patient on cardiomyopathy medications Obtain an echocardiogram to assess the current status of the ejection fraction Discontinue Nitropaste Discontinue losartan and start patient on Entresto 24 mg / 26 mg starting tomorrow morning No need for invasive workup at this point. Possible right heart catheterization if the clinical situation did not get better Further recommendation to follow the echocardiogram Nurse practitioner note has been reviewed, I agree with documented findings and plan of care. Patient was seen and examined. Objective - Vital Signs Vital signs: Vital Signs Temp 97.4 F L 08/22/23 08:00 Pulse 90 06/04/24 13:34 Resp 18 08/22/23 11:49 BP 128/59 08/22/23 11:49 Pulse Ox 96 08/22/23 13:34 FiO2 Intake & Output 08/21/23 08/22/23 08/22/23 18:59 06:59 18:59 Intake Total 540 1078 Balance 540 1078 Weight 147.418 kg Intake: Oral 540 1078 Other: Voiding Method Toilet Toilet # Voids 1 2 - Labs CBC & Chem 7: 08/22/23 12:03 08/22/23 12:03 Labs: Abnormal Lab Results - Last 24 Hours (Table) 08/21/23 08/21/23 08/21/23 Range/Units 09:29 09:29 16:51 Hgb (11.4-16.0) gm/dL RDW (11.5-15.5) % Glucose (74-99) mg/dL POC Glucose (mg/dL) 350 H (70-110) mg/dL Triglycerides 241.00 H (0.00-149.00) mg/dL VLDL Cholesterol, Calc 48.20 H (5.00-40.00) mg/dL Procalcitonin 0.11 H (0.02-0.09) ng/mL 08/22/23 08/22/23 08/22/23 Range/Units 03:44 11:41 12:03 Hgb (11.4-16.0) gm/dL RDW (11.5-15.5) % Glucose 124 H (74-99) mg/dL POC Glucose (mg/dL) 65 L 126 H (70-110) mg/dL Triglycerides (0.00-149.00) mg/dL VLDL Cholesterol, Calc (5.00-40.00) mg/dL Procalcitonin (0.02-0.09) ng/mL 08/22/23 Range/Units 12:03 Hgb 10.9 L (11.4-16.0) gm/dL RDW 16.2 H (11.5-15.5) % Glucose (74-99) mg/dL POC Glucose (mg/dL) (70-110) mg/dL Triglycerides (0.00-149.00) mg/dL VLDL Cholesterol, Calc (5.00-40.00) mg/dL Procalcitonin (0.02-0.09) ng/mL
[2023-08-22 16:23] LABS: Glucose,Whole Blood 227 mg/dL (70-110)
--- NOTE | 2023-08-22 17:42 | CA ---
Transthoracic Echo Report Name: Elizabeth Dalton Age: 57 Gender: F : 1965 Exam Date: 08/22/2023 09:58 Exam Location: [facility] Ht (in): 63 Wt (lb): 325 Ordering Physician: Lisa Hunter Attending/Referring Phys: Dale BROWN Voip Engineer Dona Eduardo RDCS Procedure CPT: Indications: chf Cardiac Hx: Technical Quality: Technically difficult study Contrast 1: Definity Total Dose (mL): 2 Contrast 2: Total Dose (mL): MEASUREMENTS (Male / Female) Normal Values 2D ECHO LV Diastolic Diameter PLAX 4.9 cm 4.2 - 5.9 / 3.9 - 5.3 cm LV Systolic Diameter PLAX 4.2 cm IVS Diastolic Thickness 1.6 cm 0.6 - 1.0 / 0.6 - 0.9 cm LVPW Diastolic Thickness 1.5 cm 0.6 - 1.0 / 0.6 - 0.9 cm LV Relative Wall Thickness 0.6 LV Diastolic Volume MOD 4C 134.2 cm??? LV Systolic Volume MOD 4C 88.0 cm??? LV Ejection Fraction MOD 4C 34.4 % LV Cardiac Index MOD 4C 1336.9 cm???/min???m??? LV Diastolic Length 4C 7.9 cm LV Systolic Length 4C 7.5 cm LV Diastolic Volume MOD 2C 81.4 cm??? LV Diastolic Length 2C 7.9 cm LA Volume 109.6 cm??? 18 - 58 / 22 - 52 cm??? LA Volume Index 41.2 cm???/m??? 16 - 28 cm???/m??? M-MODE Aortic Root Diameter MM 3.5 cm LA Systolic Diameter MM 5.6 cm LA Ao Ratio MM 1.6 DOPPLER AV Peak Velocity 173.9 cm/s AV Peak Gradient 12.1 mmHg AV Mean Velocity 130.3 cm/s AV Mean Gradient 7.4 mmHg AV Velocity Time Integral 34.7 cm MV Area PHT 4.3 cm??? Mitral E Point Velocity 112.3 cm/s Mitral A Point Velocity 70.4 cm/s Mitral E to A Ratio 1.6 MV Deceleration Time 174.7 ms MV E' Velocity 6.0 cm/s Mitral E to MV E' Ratio 18.8 FINDINGS Left Ventricle Severely increased septal wall thickness. Moderately increased posterior wall thickness. Moderately reduced global left ventricular systolic function. Left ventricular ejection fraction is estimated at 30-35 %. Grade 1 diastolic dysfunction. Right Ventricle Right ventricle not well visualized. Right Atrium Right atrium not well visualized. Left Atrium Severely increased left atrial volume. Mildly increased left atrial area. Mitral Valve Structurally normal mitral valve. Mild mitral annular calcification. Mild mitral regurgitation. Aortic Valve No aortic valve stenosis or regurgitation. Tricuspid Valve Structurally normal tricuspid valve. Mild tricuspid regurgitation. Pulmonic Valve Pulmonic valve not well visualized. Pericardium No pericardial effusion. Aorta Normal size aortic root and proximal ascending aorta. CONCLUSIONS Moderate to severe LV systolic dysfunction with an ejection fraction of 30-35% My clinic as patient with mild mitral regurgitation Mild tricuspid regurg to Previewed by: Dr. Joaquim Gomez MD (Electronically Signed) Final Date: 22 August 2023 17:42
[2023-08-22 20:14] LABS: Glucose,Whole Blood 104 mg/dL (70-110)
[2023-08-22] MEDS: ALPRAZolam 0.25 MG TAB PO PRN (23:52)
[2023-08-23 00:01] LABS: Glucose,Whole Blood 63 mg/dL (70-110)
[2023-08-23 05:54] LABS: Glucose,Whole Blood 70 mg/dL (70-110)
[2023-08-23] MEDS: ASPIRIN 81 MG PO SCH (07:32)
[2023-08-23] MEDS: SACUBITRIL/VALSARTAN 24 MG-26 MG TABLET PO SCH (07:32)
[2023-08-23 11:50] LABS: Glucose,Whole Blood 98 mg/dL (70-110)
[2023-08-23] MEDS: DAPAGLIFLOZIN PROPANEDIOL 10 MG TABLET PO SCH (12:46)
--- NOTE | 2023-08-23 13:38 | P.PN ---
Subjective Progress Note Date: 08/23/23 57-year-old female who has a history of diabetes, type II, breast cancer, cardiomyopathy, presents to the emergency department on August 19, complaining of chest discomfort, and shortness of breath. She describes primarily chest tightness rather than pain. She also states that with any activity, she becomes short of breath. She states that she has had this before. She does have a history of dilated cardiomyopathy as well. Other medical history includes hypertension, hyperlipidemia, and obesity. Currently, the patient is resting comfortably, in the emergency department, room 23. She is on 2 L of oxygen, and not receiving any IV fluids. Her primary care physician is Dr. Quinn Olivares. Laboratory data includes a white count 11.2, hemoglobin 11.7, hematocrit 38.1, and a platelet count of 211,000. D-dimer was 0.79. Coagulation studies were normal. Sodium 133, potassium 5, chlorides 107, CO2 16, BUN and creatinine were 14 and 0.59. Glucose was 396. Troponins were 0.0460.086 and 0.102. N-terminal proBNP was 498. Procalcitonin level was normal at 0.08. Chest x-ray shows cardiomegaly, and fluid overload. CTA was negative for pulmonary embolism. Small bilateral effusions were noted. EKG showed normal sinus rhythm. The patient is seen today August 22, 2023 in follow-up on the selective care unit. She is currently sitting up in a chair. Awake and alert in no acute distress. Maintaining good O2 saturations in the 90s on 2 L/min per nasal cannula. No IV fluids. Glucose 126. She remains on Lovenox for DVT prophylaxis. Echocardiogram pending. Currently on Aldactone. The patient is seen today August 23, 2023 in follow-up on the selective care unit. She is awake and alert in no acute distress. Sitting up in a chair at the bedside. Feeling quite a bit better. Nearly back to her baseline. She was up in the shower. She is maintaining good O2 saturations in the 90s on room air. No IV fluids. She remains on Lovenox for DVT prophylaxis. Echocardiogram does reveal moderately reduced global left ventricular systolic function. Ejection fraction 30 to 35%. Glucose 98. Continued on beta-blockers and Aldactone. Initiated on Entresto and Farxiga. Objective - Vital Signs Vital signs: Vital Signs Temp 97.4 F L 08/23/23 08:00 Pulse 85 08/23/23 11:38 Resp 19 08/23/23 11:38 BP 125/59 08/23/23 11:38 Pulse Ox 96 08/23/23 11:38 FiO2 Intake & Output 08/22/23 08/23/23 08/23/23 18:59 06:59 18:59 Intake Total 1078 358 Balance 1078 358 Weight 157.7 kg Intake: Oral 1078 358 Other: Voiding Method Toilet Toilet Toilet # Voids 2 2 1 - Exam GENERAL EXAM: Alert, pleasant 57-year-old female, on room air, up in a chair, in no apparent distress. HEAD: Normocephalic. EYES: Normal reaction of pupils, equal size. NOSE: Clear with pink turbinates. THROAT: No erythema or exudates. NECK: No masses, no JVD. CHEST: No chest wall deformity. LUNGS: Equal air entry with no crackles, wheeze, rhonchi or dullness. CVS: S1 and S2 normal with no audible murmur, regular rhythm. ABDOMEN: No hepatosplenomegaly, normal bowel sounds, no guarding or rigidity. SPINE: No scoliosis or deformity SKIN: No rashes CENTRAL NERVOUS SYSTEM: No focal deficits, tone is normal in all 4 extremities. EXTREMITIES: There is 1+ peripheral edema. No clubbing, no cyanosis. Peripheral pulses are intact. - Labs CBC & Chem 7: 08/22/23 12:03 08/22/23 12:03 Labs: Abnormal Lab Results - Last 24 Hours (Table) 08/22/23 08/22/23 08/23/23 Range/Units 12:03 16:20 00:00 Glucose 124 H (74-99) mg/dL POC Glucose (mg/dL) 227 H 63 L (70-110) mg/dL Assessment and Plan Assessment: Acute chest tightness, and shortness of breath, of unclear etiology. Mild fluid overload in a patient with cardiomyopathy, is the most likely explanation, given her chest x-ray. Echocardiogram reveals impaired left ventricular systolic function with ejection fraction of 30 to 35%. No evidence of pulmonary embolism on CTA. No evidence of intrinsic pulmonary disease. Procalcitonin negative History of type 2 diabetes mellitus History of breast cancer History of dilated cardiomyopathy Morbid obesity History of hyperlipidemia History of hypertension History of obstructive sleep apnea syndrome Plan: The patient was seen and evaluated Echocardiogram, labs and medications reviewed Patient has significant LV dysfunction Initiated on Entresto and Farxiga per cardiology Stable and on room air Cleared for discharge from the pulmonary standpoint This patient was seen independently by the pulmonary nurse practitioner addressing pulmonary issues I have personally seen and examined the patient, performed the documentation and the assessment and plan as written. Number of minutes spent on the visit: 24.
--- NOTE | 2023-08-23 13:45 | P.PN ---
Subjective Progress Note Date: 08/23/23 Chief complaint: Shortness of breath and the chest discomfort History of present illness: This is a 57-year-old female patient with a past medical history significant for morbid obesity as well as diabetes and hypertension and dyslipidemia and recent diagnosis of cardiomyopathy with a heart catheterization subsequently in May 2023 showed mild nonobstructive coronary artery disease presented to the hospital complaining of shortness of breath and chest discomfort. She was in her usual state of health till yesterday when she started experiencing shortness of breath associated with chest tightness. She was sitting at home. She stated that she has been compliant with her medications except for the day before she did not take her medications. No fever and no chills. No cough or sputum production. No lower extremities edema no change in the weight. She decided to come to the hospital where she underwent further investigation including chest x-ray showed bilateral infiltrate concerning for underlying pneumonia and troponin came in to be slightly abnormal but appears to be flat across the board and also NT proBNP came in to be around 400. She does not seems in any overt heart failure at this point. The physical examination is remarkable for regular rhythm with distant heart sounds and soft systolic murmur and clear breathing sounds bilaterally and no edema was noted in the lower extremities. The patient underwent a heart catheterization in May 2023 and that showed mild CAD. 08/21 Patient is seen today in follow-up. She states that she is not really feeling better from yesterday. She is maintained on oral medications. Echocardiogram has been done and report is pending. Repeat blood work reveals hemoglobin of 10.9, potassium 4.6, creatinine 0.59. Examination: Regular rhythm distant heart sounds, soft systolic murmur, clear breath sounds bilaterally, no lower extremity edema. 08/22 Patient is seen today in follow-up. This morning, patient was started on Entresto. Patient thinks that her breathing status is better today. She is off oxygen. Blood pressure 125/59, heart rate 85, pulse ox 96% on room air. Echoc ardiogram reveals EF of 30 to 35%, mild mitral regurgitation, mild tricuspid regurgitation. Results of echocardiogram reviewed with the patient. Assessment Acute hypoxic respiratory failure Bilateral pneumonia Recent diagnosis of cardiomyopathy Mild CAD on recent heart catheterization Multiple comorbid conditions Plan Continue patient on cardiomyopathy medications Continue the addition of Entresto 24 mg / 26 mg twice daily Patient is cleared from cardiology for discharge and may follow-up in the office in 1 to 2 weeks. Nurse practitioner note has been reviewed, I agree with documented findings and plan of care. Patient was seen and examined. Objective - Vital Signs Vital signs: Vital Signs Temp 97.4 F L 08/23/23 08:00 Pulse 85 08/23/23 11:38 Resp 19 08/23/23 11:38 BP 125/59 08/23/23 11:38 Pulse Ox 96 08/23/23 11:38 FiO2 Intake & Output 08/22/23 08/23/23 08/23/23 18:59 06:59 18:59 Intake Total 1078 358 Balance 1078 358 Weight 157.7 kg Intake: Oral 1078 358 Other: Voiding Method Toilet Toilet Toilet # Voids 2 2 1 - Labs CBC & Chem 7: 08/22/23 12:03 08/22/23 12:03 Labs: Abnormal Lab Results - Last 24 Hours (Table) 08/22/23 08/22/23 08/22/23 Range/Units 12:03 12:03 16:20 Hgb 10.9 L (11.4-16.0) gm/dL RDW 16.2 H (11.5-15.5) % Glucose 124 H (74-99) mg/dL POC Glucose (mg/dL) 227 H (70-110) mg/dL 08/23/23 Range/Units 00:00 Hgb (11.4-16.0) gm/dL RDW (11.5-15.5) % Glucose (74-99) mg/dL POC Glucose (mg/dL) 63 L (70-110) mg/dL
[2023-08-23 16:09] VITALS: RESP 18
[2023-08-23 16:36] LABS: Glucose,Whole Blood 98 mg/dL (70-110)
--- NOTE | 2023-08-23 18:11 | P.PN ---
Progress Note - Text Progress Note Date: 08/23/23 Patient is a pleasant 52-year-old female came with complaints of shortness of breath cough without any significant sputum production. Patient was also complaining of chest pressure-like sensation because of which cardiology evaluate the patient patient has mild elevated troponins although flat trend patient had recent cardiac catheterization 26 May which showed clean coronaries. Patient had Cardiomyopathy ejection fraction is not known as per the cardiac cath report patient has severely decreased LV function as well as increased LV diastolic pressures. Patient does not have any significant swelling in bilateral lower limbs patient does not have any orthopnea or paroxysmal nocturnal dyspnea. Chest CT was done to rule out pulmonary embolism which did not show any PE patient does not have any wheezing and denies any smoking history denies any COPD history of asthma history. Patient has some nonspecific and infiltrate but not consistent with pneumonia will obtain a procalcitonin level. Patient may have sleep apnea which was never diagnosed with previous diagnostic sleep studies were inconclusive. As etiology of her shortness of breath is not clear will consult pulmonary. Patient was started on azithromycin continue breathing treatments today if we can get her off oxygen patient can be discharged tomorrow. Patient is presently on full dose of oxygen does not use any oxygen at home. 08/22/2023 Patient is evaluated today in follow up, sitting up in the chair. Continues to report shortness of breath and difficulty with deep inspiration. She is having some pressure in her chest. She was able to be weaned off the oxygen at rest however is reporting worsening shortness of breath when she is up ambulating. Her lungs are clear. Echocariogram is currently pending. Her blood sugar is improved. Lipid panel done reveals triglycerides of 241, cholesterol 168, LDL 48.2, HDL 40.20. Procal was normal. August 23, 2023: Up in a chair. Has been up to the bathroom. Breathing better. Started on Entresto today. Eating well. Overall feels better. EF 30 to 35%. Discussed. Increase activity. Active Medications Alprazolam (Alprazolam 0.25 Mg Tab) 0.25 mg PO BID PRN PRN Reason: Anxiety Last Admin: 08/22/23 23:52 Dose: 0.25 mg Aspirin (Aspirin 81 Mg) 81 mg PO DAILY KYLE Last Admin: 08/23/23 07:32 Dose: 81 mg Atorvastatin Calcium (Atorvastatin 40 Mg Tab) 40 mg PO HS KYLE Last Admin: 08/22/23 21:10 Dose: 40 mg Dapagliflozin (Dapagliflozin Propanediol 10 Mg Tablet) 10 mg PO DAILY [facility] Last Admin: 08/23/23 12:46 Dose: 10 mg Enoxaparin Sodium (Enoxaparin 60 Mg/0.6 Ml Syringe) 60 mg SQ DAILY [facility] Last Admin: 08/23/23 07:32 Dose: 60 mg Ergocalciferol (Ergocalciferol 1,250 Mcg (50,000 Iu) Capsule) 1,250 mcg PO ALEXANDRA [facility] Last Admin: 08/20/23 21:16 Dose: 1,250 mcg Ibuprofen (Ibuprofen 600 Mg Tab) 600 mg PO Q6HR PRN PRN Reason: Pain Last Admin: 08/23/23 07:37 Dose: 600 mg Insulin Aspart (Insulin Aspart (Novolog) 100 Unit/Ml Vial) 0 unit SQ AC-TID [facility]; Protocol Last Admin: 08/23/23 16:40 Dose: Not Given Loratadine (Loratadine 10 Mg Tab) 10 mg PO [facility] Last Admin: 08/22/23 21:10 Dose: 10 mg Metformin HCl (Metformin 500 Mg Tab) 1,000 mg PO AC-BID [facility] Last Admin: 08/23/23 16:41 Dose: 1,000 mg Metoprolol Succinate (Metoprolol Succinate (Er) 25 Mg Tab.Er.24h) 25 mg PO DAILY [facility] Last Admin: 08/23/23 07:32 Dose: 25 mg Nitroglycerin (Nitroglycerin Sl Tabs 0.4 Mg Tab) 0.4 mg SUBLINGUAL Q5M PRN PRN Reason: Chest Pain Non-Formulary Medication (Tirzepatide [Mounjaro]) 12.5 mg SQ Mo@0900 [facility] Non-Formulary Medication (Insulin Regular, Human [Humulin R U-500 Kwikpen]) 250 unit SQ AC-SUPPER [facility] Last Admin: 08/23/23 16:41 Dose: 250 unit Non-Formulary Medication (Insulin Regular, Human [Humulin R U-500 Kwikpen]) 350 unit SQ AC-BID@0800,1300 [facility] Last Admin: 08/23/23 11:56 Dose: 350 unit Pantoprazole Sodium (Pantoprazole 40 Mg Tablet) 40 mg PO DAILY PRN PRN Reason: GI Upset Sacubitril/Valsartan (Sacubitril/Valsartan 24 Mg-26 Mg Tablet) 1 each PO BID [facility] Last Admin: 08/23/23 07:32 Dose: 1 each Spironolactone (Spironolactone 25 Mg Tab) 25 mg PO DAILY [facility] Last Admin: 08/23/23 07:32 Dose: 25 mg Venlafaxine HCl (Venlafaxine Hcl Er 150 Mg Cap) 150 mg PO DAILY [facility] Last Admin: 08/23/23 07:32 Dose: 150 mg On examination: VITAL SIGNS: [97.4, 85, 19, 125.59, 96% room air] GENERAL APPEARANCE: Sitting up in a chair, comfortable HEENT: Normal external appearance of nose and ear. Oral cavity normal EYES: Pupils equal. Conjunctiva normal. NECK: JVD not raised. Mass not palpable. RESPIRATORY: Respiratory effort normal. Lungs clear to auscultation. CARDIOVASCULAR: First and second sounds normal. No edema. ABDOMEN: Soft. Liver and spleen not palpable. No tenderness. No mass palpable. PSYCHIATRY: Alert and oriented x3. Mood and affect normal. INVESTIGATIONS, reviewed in the clinical context: August 22, 2023: White count 9.2 hemoglobin 10.9 platelets 191 sodium 137 potassium 4.6 creatinine 0.59 2D echocardiogram EF 30 to 35%. Assessment and plan -Shortness of breath, acute hypoxic respiratory failure felt CHF exacerbation.: Better Aldactone -Acute on chronic congestive heart failure cyst dysfunction ejection EF 3035% Aldactone. Entresto added -Type 2 diabetes mellitus requiring high doses of insulin patient Is also on Toujeo which she is also on high-dose of insulin and that pioglitazone will be discontinued because of her cardiomyopathy. Metformin resumed . -Gastroesophageal reflux disease Protonix -Hypertension Aldactone. Toprol-XL. -Possible sleep apnea, not diagnosed would benefit from sleep study outpatient -Morbid obesity with a BMI of 61.6 Patient had a bariatric surgery in the past with a lap band -Troponinemia from CHF -Full code Care was discussed with the patient. Increase activity. Hopefully discharge tomorrow.
[2023-08-23 20:05] LABS: Glucose,Whole Blood 64 mg/dL (70-110)
[2023-08-23 20:19] VITALS: TEMP 97.1
[2023-08-23 20:21] LABS: Glucose,Whole Blood 77 mg/dL (70-110)
[2023-08-24 05:54] LABS: Glucose,Whole Blood 70 mg/dL (70-110)
[2023-08-24 08:21] LABS: African American GFR (CKD) >90 (>60 ml/min/1.73 sqM); Anion Gap 6 mmol/L; Blood Urea Nitrogen 13 mg/dL (7-17); Calcium 8.8 mg/dL (8.4-10.2); Carbon Dioxide 22 mmol/L (22-30); Chloride 109 mmol/L (98-107); Glucose 130 mg/dL (74-99); Non-African American GFR(CKD) >90 (>60 ml/min/1.73 sqM); Sodium 137 mmol/L (137-145)
[2023-08-24 08:22] LABS: Potassium 4.5 mmol/L (3.5-5.1)
[2023-08-24 11:39] LABS: Glucose,Whole Blood 106 mg/dL (70-110)
--- NOTE | 2023-08-24 13:41 | P.PN ---
Subjective Progress Note Date: 08/24/23 57-year-old female who has a history of diabetes, type II, breast cancer, cardiomyopathy, presents to the emergency department on August 19, complaining of chest discomfort, and shortness of breath. She describes primarily chest tightness rather than pain. She also states that with any activity, she becomes short of breath. She states that she has had this before. She does have a history of dilated cardiomyopathy as well. Other medical history includes hypertension, hyperlipidemia, and obesity. Currently, the patient is resting comfortably, in the emergency department, room 23. She is on 2 L of oxygen, and not receiving any IV fluids. Her primary care physician is Dr. Quinn Olivares. Laboratory data includes a white count 11.2, hemoglobin 11.7, hematocrit 38.1, and a platelet count of 211,000. D-dimer was 0.79. Coagulation studies were normal. Sodium 133, potassium 5, chlorides 107, CO2 16, BUN and creatinine were 14 and 0.59. Glucose was 396. Troponins were 0.0460.086 and 0.102. N-terminal proBNP was 498. Procalcitonin level was normal at 0.08. Chest x-ray shows cardiomegaly, and fluid overload. CTA was negative for pulmonary embolism. Small bilateral effusions were noted. EKG showed normal sinus rhythm. The patient is seen today August 22, 2023 in follow-up on the selective care unit. She is currently sitting up in a chair. Awake and alert in no acute distress. Maintaining good O2 saturations in the 90s on 2 L/min per nasal cannula. No IV fluids. Glucose 126. She remains on Lovenox for DVT prophylaxis. Echocardiogram pending. Currently on Aldactone. The patient is seen today August 23, 2023 in follow-up on the selective care unit. She is awake and alert in no acute distress. Sitting up in a chair at the bedside. Feeling quite a bit better. Nearly back to her baseline. She was up in the shower. She is maintaining good O2 saturations in the 90s on room air. No IV fluids. She remains on Lovenox for DVT prophylaxis. Echocardiogram does reveal moderately reduced global left ventricular systolic function. Ejection fraction 30 to 35%. Glucose 98. Continued on beta-blockers and Aldactone. Initiated on Entresto and Farxiga. The patient is seen today August 24, 2023 in follow-up on the selective care unit. She is sitting up in a chair. Awake and alert in no acute distress. Feeling nearly back to her baseline. She is maintaining O2 saturations in the 90s on room air. She had been initiated on Entresto and Farxiga by cardiology. Sodium 137. Potassium 4.5. Bicarb 22. BUN 13. Creatinine 0.60. Glucose 130. Remains on Lovenox for DVT prophylaxis. Objective - Vital Signs Vital signs: Vital Signs Temp 97.1 F L 08/23/23 20:18 Pulse 116 H 08/24/23 08:00 Resp 18 08/24/23 08:00 BP 143/73 08/24/23 08:00 Pulse Ox 94 L 08/24/23 08:00 FiO2 Intake & Output 08/23/23 08/24/23 08/24/23 18:59 06:59 18:59 Intake Total 1138 658 Balance 1138 658 Intake: Oral 1138 658 Other: Voiding Method Toilet Toilet Toilet # Voids 2 3 - Exam GENERAL EXAM: Alert, obese 57-year-old female, up in a chair, in no apparent distress. HEAD: Normocephalic. EYES: Normal reaction of pupils, equal size. NOSE: Clear with pink turbinates. THROAT: No erythema or exudates. NECK: No masses, no JVD. CHEST: No chest wall deformity. LUNGS: Equal air entry with no crackles, wheeze, rhonchi or dullness. On room air. CVS: S1 and S2 normal with no audible murmur, regular rhythm. ABDOMEN: No hepatosplenomegaly, normal bowel sounds, no guarding or rigidity. SPINE: No scoliosis or deformity SKIN: No rashes CENTRAL NERVOUS SYSTEM: No focal deficits, tone is normal in all 4 extremities. EXTREMITIES: There is 1+ peripheral edema. No clubbing, no cyanosis. Peripheral pulses are intact. - Labs CBC & Chem 7: 08/22/23 12:03 08/24/23 06:50 Labs: Abnormal Lab Results - Last 24 Hours (Table) 08/23/23 08/24/23 Range/Units 20:03 06:50 Chloride 109 H (98-107) mmol/L Glucose 130 H (74-99) mg/dL POC Glucose (mg/dL) 64 L (70-110) mg/dL Assessment and Plan Assessment: Acute chest tightness, and shortness of breath, of unclear etiology. Mild fluid overload in a patient with cardiomyopathy, is the most likely explanation, given her chest x-ray. Echocardiogram reveals impaired left ventricular systolic function with ejection fraction of 30 to 35%. No evidence of pulmonary embolism on CTA. No evidence of intrinsic pulmonary disease. Procalcitonin negative History of type 2 diabetes mellitus History of breast cancer History of dilated cardiomyopathy Morbid obesity History of hyperlipidemia History of hypertension History of obstructive sleep apnea syndrome Plan: The patient was seen and evaluated Labs and medications reviewed Stable and on room air Cleared for discharge from the pulmonary standpoint I have personally seen and examined the patient, performed the documentation and the assessment and plan as written. Number of minutes spent on the visit: 10.
[2023-08-24 14:55] VITALS: BP 117/68; PULSE 92
--- NOTE | 2023-08-25 10:14 | CDI ---
Documentation Clarification Form Date: 08/25/23 From: Deepa Mcdermott Admit Date: 08/22/2023 12:52:00 PM Patient Name: Elizabeth Dalton Visit Number: [id number] Discharge Date: 08/24/2023 02:53:00 PM ATTENTION: The Clinical Documentation Specialists (CDI) and [facility] Coding Staff appreciate your assistance in clarifying documentation. Please respond to the clarification below the line at the bottom and electronically sign. The CDI & [facility] Coding staff will review the response and follow-up if needed. Please note: Queries are made part of the Legal Health Record. If you have any questions, please contact the author of this message via ITS. Dr. Kartik Reyes, Your patient has troponin level(s) of: 0.046, 0.086 (08/19) & 0.102 (08/20) Please clarify if there is an additional diagnosis and/or clinical significance related to this value. Patient history/risk factors: HTN W systolic & diastolic CHF, dilated cardiomyopathy, morbid obesity, T2DM Clinical indicators: Troponin elevationmild and flat probablynottype IST elevation MIcardiology evaluated the patient. Treatment: Echo Is there an additional diagnosis and/or clinical significance related to the above lab result/information: [ ] Type 2 TX due to (specify cause ____) [ ] Non-ischemic with acute myocardial injury [ ] No additional diagnosis/Not clinically significant [ + ] Other, please specify ___see discharge summary [ ] Unable to determine Reference: [employer] Fourth [place] Definition of Myocardial Infraction Elevated Cardiac Troponin >99th percentile with Troponin rise and/or fall With Acute ischemia Acute Myocardial Infarction Atherosclerosis thrombosis Type I TX Oxygen supply and demand imbalance Type II TX (Please indicate etiology) Without acute ischemia Acute Myocardial Injury MTDD
--- NOTE | 2023-08-25 10:27 | CDI ---
Documentation Clarification Form Date: 08/25/23 From: Deepa Mcdermott Admit Date: 08/22/2023 12:52:00 PM Patient Name: Elizabeth Dalton Visit Number: [id number] Discharge Date: 08/24/2023 02:53:00 PM ATTENTION: The Clinical Documentation Specialists (CDI) and [facility] Coding Staff appreciate your assistance in clarifying documentation. Please respond to the clarification below the line at the bottom and electronically sign. The CDI & [facility] Coding staff will review the response and follow-up if needed. Please note: Queries are made part of the Legal Health Record. If you have any questions, please contact the author of this message via ITS. Dr. Kartik Reyes, There is documentation of [insert documentation, date, location]. Additional clarification is requested. History/Risk Factors: HTN W systolic & diastolic CHF, dilated cardiomyopathy, morbid obesity, T2DM Clinical Indicators: Compliants of SOB, cough without any significant sputum production. Also compliant of chest pressure-like sensation. Treatment: Echo, Sacubitril/Valsartan, Zithriomycin 500 mg po Can you please clarify the reason for admission? [ ] Pneumonia [ ] Acute on chronic systolic and diastolic CHF [ + ] Other, please specify __acute congestive heart failure exacerbation from systolic dysfunction, EF 30 to 35% [ ] Unable to determine MTDD
--- NOTE | 2023-08-27 21:56 | P.DS ---
Providers Date of admission: 08/22/23 12:52 Expected date of discharge: 08/24/23 Attending physician: Kartik Reyes Consults: 08/20/23 20:20 Consult Physician Urgent Consulting Provider: Joaquim Gomez Consult Reason/Comments: cp Do you want consulting provider notified?: Yes 08/21/23 10:12 Consult Physician Routine Consulting Provider: Panchito Lyn Consult Reason/Comments: Hypoxia and unknown etiology Do you want consulting provider notified?: Yes Primary care physician: [facility] Course: Patient is a pleasant 52-year-old female came with complaints of shortness of breath cough without any significant sputum production. Patient was also complaining of chest pressure-like sensation because of which cardiology evaluate the patient patient has mild elevated troponins although flat trend patient had recent cardiac catheterization 26 May which showed clean coronaries. Patient had Cardiomyopathy ejection fraction is not known as per the cardiac cath report patient has severely decreased LV function as well as increased LV diastolic pressures. Patient does not have any significant swelling in bilateral lower limbs patient does not have any orthopnea or paroxysmal nocturnal dyspnea. Chest CT was done to rule out pulmonary embolism which did not show any PE patient does not have any wheezing and denies any smoking history denies any COPD history of asthma history. Patient has some nonspecific and infiltrate but not consistent with pneumonia will obtain a procalcitonin level. Patient may have sleep apnea which was never diagnosed w ith previous diagnostic sleep studies were inconclusive. As etiology of her shortness of breath is not clear will consult pulmonary. Patient was started on azithromycin continue breathing treatments today if we can get her off oxygen patient can be discharged tomorrow. Patient is presently on full dose of oxygen does not use any oxygen at home. 08/22/2023 Patient is evaluated today in follow up, sitting up in the chair. Continues to report shortness of breath and difficulty with deep inspiration. She is having some pressure in her chest. She was able to be weaned off the oxygen at rest how ever is reporting worsening shortness of breath when she is up ambulating. Her lungs are clear. Echocariogram is currently pending. Her blood sugar is improved. Lipid panel done reveals triglycerides of 241, cholesterol 168, LDL 48.2, HDL 40.20. Procal was normal. August 23, 2023: Up in a chair. Has been up to the bathroom. Breathing better. Started on Entresto today. Eating well. Overall feels better. EF 30 to 35%. Discussed. Increase activity. August 23: Sitting up in chair. Feeling well. Did ambulate. Breathing greatly improved. Cleared by pulmonary and cardio for discharge. Questions answered. Patient follow-up with Dr. Oscar Gomez On examination: VITAL SIGNS: 92, 18, 117/60, 95% room air GENERAL APPEARANCE: Sitting up in a chair, comfortable HEENT: Normal external appearance of nose and ear. Oral cavity normal EYES: Pupils equal. Conjunctiva normal. NECK: JVD not raised. Mass not palpable. RESPIRATORY: Respiratory effort normal. Lungs clear to auscultation. CARDIOVASCULAR: First and second sounds normal. No edema. ABDOMEN: Soft. Liver and spleen not palpable. No tenderness. No mass palpable. PSYCHIATRY: Alert and oriented x3. Mood and affect normal. INVESTIGATIONS, reviewed in the clinical context: August 23: Potassium 4.5 creatinine 0.6 August 22, 2023: White count 9.2 hemoglobin 10.9 platelets 191 sodium 137 potassium 4.6 creatinine 0.59 2D echocardiogram EF 30 to 35%. Assessment and plan: -Shortness of breath, acute hypoxic respiratory failure felt secondary to CHF exacerbation.: Better -Acute on chronic congestive heart failure cyst dysfunction ejection EF 3035% Aldactone. Entresto -Type 2 diabetes mellitus requiring high doses of insulin patient Is also on Toujeo which she is also on high-dose of insulin and that piog litazone will be discontinued because of her cardiomyopathy. Metformin resumed . -Gastroesophageal reflux disease Protonix -Hypertension Aldactone. Toprol-XL. -Possible sleep apnea, not diagnosed would benefit from sleep study outpatient -Morbid obesity with a BMI of 61.6 Patient had a bariatric surgery in the past with a lap band -Troponinemia from CHF -Full code Disposition: Home Plan - Discharge Summary Discharge Rx Participant: Yes New Discharge Prescriptions: New Sacubitril/Valsartan [Entresto 24 mg-26 mg Tablet] 1 each PO BID #60 tab Dapagliflozin Propanediol [Farxiga] 10 mg PO DAILY #30 tab Continue metFORMIN HCL [Glucophage] 1,000 mg PO BID Cetirizine HCl [Zyrtec] 10 mg PO HS Venlafaxine HCl [Effexor XR] 150 mg PO DAILY Insulin Regular, Human [humuLIN R U-500 Kwikpen] 350 unit SQ AC-BID@0800,1300 Aspirin 81 mg PO DAILY Omeprazole 40 mg PO HS PRN PRN Reason: Gi Upset Metoprolol Succinate [Metoprolol Succinate ER] 25 mg PO DAILY Rosuvastatin [Crestor] 20 mg PO HS Ibuprofen [Advil] 600 mg PO Q6HR PRN PRN Reason: Pain Albuterol Sulfate [Albuterol Sulfate Hfa] 2 puff PO RT-Q4H PRN PRN Reason: Shortness Of Breath Spironolactone [Aldactone] 25 mg PO DAILY 30 Days #30 tab Tirzepatide [Mounjaro] 12.5 mg SQ MO Ergocalciferol (Vitamin D2) [Drisdol (50,000 Iu)] 1,250 mcg PO ALEXANDRA ALPRAZolam [Xanax] 0.25 mg PO BID PRN PRN Reason: Anxiety Chlorhexidine Gluconate [Peridex] 15 ml PO BID Insulin Regular, Human [humuLIN R U-500 Kwikpen] 250 unit SQ AC-SUPPER Discontinued Pioglitazone HCl 15 mg PO DAILY Losartan Potassium [Cozaar] 100 mg PO DAILY Discharge Medication List metFORMIN HCL [Glucophage] 1,000 mg PO BID 01/23/19 [History] Cetirizine HCl [Zyrtec] 10 mg PO HS 01/15/21 [History] Venlafaxine HCl [Effexor XR] 150 mg PO DAILY 02/26/21 [History] Insulin Regular, Human [humuLIN R U-500 Kwikpen] 350 unit SQ AC-BID@0800,1300 05/02/22 [History] Aspirin 81 mg PO DAILY 05/25/23 [History] Metoprolol Succinate [Metoprolol Succinate ER] 25 mg PO DAILY 05/30/23 [History] Omeprazole 40 mg PO HS PRN 05/30/23 [History] ALPRAZolam [Xanax] 0.25 mg PO BID PRN 06/02/23 [History] Albuterol Sulfate [Albuterol Sulfate Hfa] 2 puff PO RT-Q4H PRN 06/02/23 [His tory] Ibuprofen [Advil] 600 mg PO Q6HR PRN 06/02/23 [History] Rosuvastatin [Crestor] 20 mg PO HS 06/02/23 [History] Spironolactone [Aldactone] 25 mg PO DAILY 30 Days #30 tab 06/04/23 [Rx] Chlorhexidine Gluconate [Peridex] 15 ml PO BID 08/20/23 [History] Ergocalciferol (Vitamin D2) [Drisdol (50,000 Iu)] 1,250 mcg PO ALEXANDRA 08/20/23 [History] Insulin Regular, Human [humuLIN R U-500 Kwikpen] 250 unit SQ AC-SUPPER 08/20/23 [History] Tirzepatide [Mounjaro] 12.5 mg SQ MO 08/20/23 [History] Dapagliflozin Propanediol [Farxiga] 10 mg PO DAILY #30 tab 08/24/23 [Rx] Sacubitril/Valsartan [Entresto 24 mg-26 mg Tablet] 1 each PO BID #60 tab 08/24/23 [Rx] Follow up Appointment(s)/Referral(s): Quinn Olivares DO [Primary Care Provider] - 1-2 days Florencio Mabry MD [REFERRING] - 2 Weeks Joaquim Gomez MD [STAFF PHYSICIAN] - 1 Week Patient Instructions/Handouts: Chest Pain (DC) Discharge Disposition: HOME SELF-CARE
[2023-08-28] MEDS ORDERED: NON FORMULARY DRUG (Tirzepatide [Mounjaro] 12.5 MG/0.5 ML Pen.Injctr) SQ SCH (09:00)
== END 2023-08-24 14:53 | disposition home or self-care (01) | DRG 291 ==
LOC: EC 17:33 → 3SCARD 20:20 → OBSVTOIN 08-22 12:52
PROVIDERS: ADMIT Hospitalist; ATTEND Hospitalist
DX: I11.0 Hypertensive heart disease with heart failure (principal); I50.23 Acute on chronic systolic (congestive) heart failure; J96.01 Acute respiratory failure with hypoxia; Z68.44 Body mass index [BMI] 60.0-69.9, adult; I42.0 Dilated cardiomyopathy; E11.9 Type 2 diabetes mellitus without complications; E66.01 Morbid (severe) obesity due to excess calories; J45.909 Unspecified asthma, uncomplicated; Z79.4 Long term (current) use of insulin; E78.5 Hyperlipidemia, unspecified; I25.10 Atherosclerotic heart disease of native coronary artery without angina pectoris; G47.33 Obstructive sleep apnea (adult) (pediatric); K21.9 Gastro-esophageal reflux disease without esophagitis; F41.9 Anxiety disorder, unspecified; R79.89 Other specified abnormal findings of blood chemistry; Z79.82 Long term (current) use of aspirin; Z79.84 Long term (current) use of oral hypoglycemic drugs; Z79.85 Long-term (current) use of injectable non-insulin antidiabetic drugs; Z79.899 Other long term (current) drug therapy; Z85.3 Personal history of malignant neoplasm of breast; Z98.84 Bariatric surgery status; Z88.5 Allergy status to narcotic agent
CPT/HCPCS: 36415; 71046; 71275; 80048; 80053; 80061; 83735; 83880; 84145; 84484; 85025; 85027; 85379; 85610; 85730; 93005; 93306; 94760; 96372; 99285

== ENCOUNTER 2024-01-15 12:39 | Day surgery (SDC) | payer BC ==
[2024-01-11 15:46] VITALS: BMI 56.7
[~2024-01-15 12:39] MED LIST changes: -ACETAMINOPHEN TAB 500 MG TAB PO PRN; -HEPARIN SODIUM,PORCINE/PF 5,000 UNIT/0.5 ML SYRINGE SQ PRN; +MIDAZOLAM 2 MG/2 ML VIAL IV PRN; -Pre Op ABX Message 1 EACH MISC MISCELLANE ONE; +ceFAZolin 1 GM in SODIUM CHLORIDE 0.9% IRRIG BTL 250 ML IRRIGATION PRN; +fentaNYL (PF) 50 MCG/ML 2 ML AMP IV PRN
[2024-01-15] MEDS: SODIUM CHLORIDE 0.9% 1,000 ML IV SCH ×2 (13:12→17:54)
[2024-01-15 13:15] LABS: Glucose,Whole Blood 217 mg/dL (70-110)
[2024-01-15] MEDS: INSULIN ASPART (NovoLOG) 100 UNIT/ML VIAL SQ ONE (13:22)
[2024-01-15] MEDS ORDERED: METOPROLOL TARTRATE 5 MG/5 ML VIAL IVP ONE (13:41)
[2024-01-15] MEDS ORDERED: fentaNYL (PF) 50 MCG/ML 2 ML AMP ONE (13:41)
[2024-01-15] MEDS ORDERED: PROPOFOL 10 MG/ML 20 ML VIAL IV ONE (13:41)
[2024-01-15] MEDS ORDERED: MIDAZOLAM 2 MG/2 ML VIAL ONE (13:41)
[2024-01-15] MEDS: IV FLUID CONTINUATION 1,000 ML IV ONE ×2 (13:46)
[2024-01-15] MEDS: IOPAMIDOL-300 100ML BTL IVP ONE (14:03)
[2024-01-15] MEDS: ROPIVACAINE 5 MG/ML 30 ML VIAL MISCELLANE ONE (14:38)
[2024-01-15] MEDS: LIDOCAINE 1% INJ 10MG/ML (20 ML MDV) SQ ONE (14:38)
[2024-01-15] MEDS: ADENOSINE 3 MG/ML 4 ML VIAL IVP ONE ×2 (15:46→15:49)
--- NOTE | 2024-01-15 16:18 | P.EPPROC ---
- EP Procedure Note Electrophysiology Procedure Note: Procedure: Cardioversion, chemical, SVT Indication of the procedure SVT with negative P waves in lead V1, ventricular rate 130 beats a minute Abrupt onset while the ICD pocket was being closed Patient suddenly went to supraventricular tachycardia, she was symptomatic from this. Ventricular rate 130 beats a minute. Clear negative P waves noted in lead V1 12 mg of IV adenosine rapid push followed by 10 cc of saline given Abrupt termination of tachycardia Plan maximize beta-blockers If she has recurrent episodes of atrial tachycardia, EP study and radiofrequency ablation should be considered
--- NOTE | 2024-01-15 16:22 | P.EPPROC ---
- EP Procedure Note Electrophysiology Procedure Note: Diagnosis Cardiomyopathy, chronic, nonischemic Congestive heart failure, systolic, class III heart failure On guideline directed medical treatment guideline directed Narrow QRS on twelve-lead EKG Morbid obesity Procedure: Single ICD implantation for management of risk of sudden cardiac Ergonomics Technician: Dr. Dave Result: Single chamber ICD implantation, RV ICD lead: Fisher, up to sure model model number LDA 210Q ICD generator: Fisher Parlier, VR model number [id number] Procedure details: Patient was brought to the EP lab in a fasting state. Written informed consent was obtained prior to the procedure. Options, pros and cons, benefits and risks and complications discussed with patient in detail prior to the procedure (shared decision making document, from [facility]). Importance of continuing medical treatment emphasized. Alternatives discussed. Patient would like to proceed with ICD implant. Left upper extremity venogram performed. 15 mL IV dye injected in the left arm. Patent axillary/subclavian vein The left pectoral area was prepped and draped as a protocol. IV antibiotics administered 1% lidocaine was used for local anesthesia. A 4 cm incision was made parallel to the deltopectoral groove, about 1.5 cm medial to it. The in cision was carried down to the level of the pectoralis muscle and the subfascial pocket was made. Hemostasis was assured. The axillary vein access was obtained. Appropriately sized venous sheath was placed. ICD lead implanted in the right ventricle and screwed in. ICD lead tested for threshold, sensing, impedances and tested with high output pacing for diaphragmatic stimulation Pacing threshold 0.5 V at at 0.5 ms, R waves greater than 12 mV, pacing impedance 740 ohms High-voltage impedance 70 ohms Lead secured to the underlying transverse muscle after removing sheaths . Pocket irrigated with antibiotic solution Leads connected to the ICD generator. Wound closed in 3 layers and dressed per protocol ICD was interrogated and programmed. Appropriate pacing parameters, antitachycardia therapies with antitachycardia pacing cardioversion defibrillations programmed. Patient tolerated the procedure well without any acute complications. See scanned device report in EMR for lead details Extended procedure duration This is a morbidly obese patient. The skin close pectoralis muscle depth was greater than 6 inches. It took a long time to get down to the pectoralis muscle and create a subfascial pocket address bleeding in the adipose tissue then obtain access at such a depth. The wound was then sutured at the end with Vicryl sutures in 4 layers on account of the thickness of the subcutaneous tissue. This took an extra amount of time
[2024-01-15 17:27] LABS: Glucose,Whole Blood 186 mg/dL (70-110)
[2024-01-15] MEDS ORDERED: NON FORMULARY DRUG (Insulin Regular, Human [Humulin R U-500 Kwikpen] 500 UNIT/ML Insuln.Pe SQ SCH (17:30)
[2024-01-15] MEDS ORDERED: INSULIN ASPART (NovoLOG) 100 UNIT/ML VIAL SQ SCH (17:30)
[2024-01-15] MEDS: LACTATED RINGERS 1,000 ML IV SCH (17:53)
[2024-01-15] MEDS: carvediloL 3.125 MG TAB PO SCH (18:12)
[2024-01-15] MEDS: GABAPENTIN 300 MG CAP PO SCH (19:51)
[2024-01-15] MEDS: SACUBITRIL/VALSARTAN 24 MG-26 MG TABLET PO SCH (19:51)
[2024-01-15] MEDS: PANTOPRAZOLE 40 MG TABLET PO SCH (19:51)
[2024-01-15] MEDS: ATORVASTATIN 40 MG TAB PO SCH (19:51)
[2024-01-15] MEDS: ASPIRIN 81 MG PO SCH (19:51)
[2024-01-15 20:18] LABS: Glucose,Whole Blood 322 mg/dL (70-110)
[2024-01-15] MEDS: ACETAMINOPHEN IV (For NPO) 1,000 MG in EMPTY BAG 1 BAG IVPB ONE (22:27)
[2024-01-16] MEDS: diphenhydrAMINE 50 MG CAP PO STA (00:24)
[2024-01-16] MEDS: carvediloL 6.25 MG TAB PO SCH (01:14)
[2024-01-16 05:53] LABS: Glucose,Whole Blood 208 mg/dL (70-110)
--- NOTE | 2024-01-16 07:34 | XR ---
EXAMINATION TYPE: XR chest 2V DATE OF EXAM: 01/16/2024 COMPARISON: 08/20/2023 HISTORY: 58-year-old female lead placement check TECHNIQUE: Frontal and lateral views FINDINGS: Left anterior chest wall AICD generator with right ventricular lead. Heart mildly enlarged. Similar m ild interstitial prominence. No consolidation or pleural effusion. No pneumothorax. IMPRESSION: 1. Single right ventricular AICD lead. Generator at the left anterior chest wall. No appreciable pneu mothorax. 2. Mild cardiomegaly and possible mild pulmonary vascular congestion. [facility], , 01/16/2024 7:31 AM
[2024-01-16 07:48] VITALS: BP 131/74; PULSE 77; RESP 18; TEMP 97.7
[2024-01-16] MEDS: SPIRONOLACTONE 25 MG TAB PO SCH (08:20)
[2024-01-16] MEDS: DAPAGLIFLOZIN PROPANEDIOL 10 MG TABLET PO SCH (08:20)
[2024-01-16] MEDS: VENLAFAXINE HCL ER 150 MG CAP PO SCH (08:21)
[2024-01-16] MEDS: ACETAMINOPHEN TAB 325 MG TAB PO PRN (08:32)
--- NOTE | 2024-01-16 15:42 | P.DS ---
Providers Attending physician: Willy Dave Primary care physician: [facility] Course: Patient is doing well. She had yet another episode of SVT which I treated with an extra dose of carvedilol in the middle of the night. It lasted for about an hour This morning she is doing well. ICD site is healed well Interrogation was within normal limits Chest x-ray is within normal limits No pneumothorax On examination heart sounds are normal Breath sounds are clear Blood pressure 117/69 mmHg afebrile Impression nonischemic cardiomyopathy with congestive heart failure class III Normal coronary arteries Narrow QRS Recurrent episodes of SVT/atrial tachycardia with negative P waves in lead V1 and terminated with IV adenosine Plan After 2 to 3 months I would recommend a diagnostic EP study and mapping and ablation of the atrial tachycardia This may contribute to her cardiomyopathy also if left untreated and if it becomes more frequent She has already had 2 episodes within the last 24 hours despite carvedilol I will also increase the dose of carvedilol to 6.25 mg twice daily while continuing all other heart failure medications Patient Condition at Discharge: Stable Plan - Discharge Summary Discharge Rx Participant: Yes New Discharge Prescriptions: New carvediloL [Coreg] 6.25 mg PO BID #180 tablet Discontinued carvediloL [Coreg] 3.125 mg PO BID No Action metFORMIN HCL [Glucophage] 1,000 mg PO BID Cetirizine HCl [Zyrtec] 10 mg PO HS Venlafaxine HCl [Effexor XR] 150 mg PO DAILY Aspirin 81 mg PO HS Omeprazole 40 mg PO HS Rosuvastatin [Crestor] 20 mg PO HS Albuterol Sulfate [Albuterol Sulfate Hfa] 2 puff PO Q4H PRN PRN Reason: Shortness Of Breath Ergocalciferol (Vitamin D2) [Drisdol (50,000 Iu)] 1,250 mcg PO ALEXANDRA Tirzepatide [Mounjaro] 10 mg SQ ALEXANDRA Spironolactone 50 mg PO DAILY Gabapentin 600 mg PO HS Insulin Regular, Human [humuLIN R U-500 Kwikpen] 500 unit SQ TID-W/MEALS Sacubitril/Valsartan [Entresto 24 mg-26 mg Tablet] 1 each PO BID #60 tab Dapagliflozin Propanediol [Farxiga] 10 mg PO DAILY #30 tab Discharge Medication List metFORMIN HCL [Glucophage] 1,000 mg PO BID 01/23/19 [History] Cetirizine HCl [Zyrtec] 10 mg PO HS 01/15/21 [History] Venlafaxine HCl [Effexor XR] 150 mg PO DAILY 02/26/21 [History] Aspirin 81 mg PO HS 05/25/23 [History] Omeprazole 40 mg PO HS 05/30/23 [History] Albuterol Sulfate [Albuterol Sulfate Hfa] 2 puff PO Q4H PRN 06/02/23 [History] Rosuvastatin [Crestor] 20 mg PO HS 06/02/23 [History] Ergocalciferol (Vitamin D2) [Drisdol (50,000 Iu)] 1,250 mcg PO ALEXANDRA 08/20/23 [History] Insulin Regular, Human [humuLIN R U-500 Kwikpen] 500 unit SQ TID-W/MEALS 08/20/23 [History] Dapagliflozin Propanediol [Farxiga] 10 mg PO DAILY #30 tab 08/24/23 [Rx] Sacubitril/Valsartan [Entresto 24 mg-26 mg Tablet] 1 each PO BID #60 tab 08/24/23 [Rx] Gabapentin 600 mg PO HS 01/11/24 [History] Spironolactone 50 mg PO DAILY 01/11/24 [History] Tirzepatide [Mounjaro] 10 mg SQ ALEAXNDRA 01/11/24 [History] carvediloL [Coreg] 6.25 mg PO BID #180 tablet 01/16/24 [Rx] Follow up Appointment(s)/Referral(s): Willy Dave MD [STAFF PHYSICIAN] - As Needed (Device clinic follow-up in 1 week Follow-up with Dr. Lizarraga as previously scheduled) Joaquim Gomez MD [STAFF PHYSICIAN] - 01/23/24 4:00 pm (As previously scheduled Carvedilol dose increased to 6.25 mg twice daily Device Clinic appointment is for 01/23/24 @ 4:00pm. Follow up appointment will be after device check.) Patient Instructions/Handouts: Pacemaker (DC) Activity/Diet/Wound Care/Special Instructions: PATIENT EDUCATION MATERIAL Instructions following a heart rhythm device implant. 1. Keep dressing DRY for 5 DAYS. You may cover the area with Saran or Cling Wrap, prior to a shower. 2. The dressing will be removed in the [facility] at [facility]. Absorbable sutures were used to close the wound. 3. Avoid raising the left arm above the shoulder level. 4 week restriction 4. Avoid arm movements, like backscratching, rubbing the head, or pulling on a cord. 4 weeks restriction 5. Gentle range of motion movements of the shoulder, closest to the incision should be performed to avoid a frozen shoulder. (Pendulum exercises of the shoulder) 6. The opposite arm may be used freely. 7. Avoid driving for 7 days. 8. Avoid activities such as golfing, swimming, weed whacking, lifting more than 10 pounds weight, bowling, gymnastics and weight training/lifting. (6 weeks restriction) 9. Activities such as wood chopping with an axe, pull-ups in the gymnasium, power lifting, arc-welding, being close to home induction cooktops will always be a problem. 10. Arm sling is only a reminder not to raise the arm above the head. You do not need to keep the arm completely immobilized. Your free to move the arm and use it and for normal activities. In case of any problems, please call [facility], @ [phone], Attention: Device Clinic Device clinic follow-up in 5 days Follow-up with primary pot annealer in 2-3 months Dose of carvedilol is increased to 6.25 mg twice daily Discharge Disposition: HOME SELF-CARE
[2024-01-17] MEDS ORDERED: metFORMIN 500 MG TAB PO SCH (17:30)
== END 2024-01-16 11:38 | disposition home or self-care (01) ==
LOC: CATHEP 12:39 → 6NMEDSUR 16:01 → CATHEP 01-16 11:38
PROVIDERS: ATTEND Internal Medicine Clinical Cardiac Electrophysiology
DX: Z95.810 Presence of automatic (implantable) cardiac defibrillator (principal); I42.9 Cardiomyopathy, unspecified; F41.9 Anxiety disorder, unspecified; E66.01 Morbid (severe) obesity due to excess calories; Z79.84 Long term (current) use of oral hypoglycemic drugs
CPT/HCPCS: 33249; 71046; C1722; C1892; C1769; C1777; J2250; J0690; J2003; J3010; J2795; J0153; J0131; J2704; Q9967

== ENCOUNTER → 2024-05-21 | Outpatient (CLI) | payer BC ==
[2024-05-21 11:03] LABS: HCT 36.2 % (37.2-46.3); HGB 11.2 g/dL (12.0-15.0); MCH 25.8 pg (27.0-32.0); MCHC 30.9 g/dL (32.0-37.0); MCV 83.4 FL (80.0-97.0); Mean Platelet Volume 10.4 FL (9.5-12.2); NRBC Per 100 WBC 0 X 10*3/uL (0.00-0.01); Platelet Count 236 X 10*3/uL (140-440); RBC 4.34 X 10*6/uL (4.10-5.20); RDW 15.2 % (11.5-14.5); WBC 8.11 X 10*3/uL (4.50-10.00)
[2024-05-21 11:28] LABS: Blood Urea Nitrogen 9.8 mg/dL (9.0-27.0); Carbon Dioxide 24.8 mmol/L (21.6-31.8); Chloride 101 mmol/L (96-109); Potassium 4.2 mmol/L (3.5-5.5); Sodium 137 mmol/L (135-145)
== END | disposition home or self-care (01) ==
LOC: LABPAT 06:59
PROVIDERS: ATTEND Internal Medicine Clinical Cardiac Electrophysiology
DX: Z01.812 Encounter for preprocedural laboratory examination (principal); I42.0 Dilated cardiomyopathy; I50.22 Chronic systolic (congestive) heart failure
CPT/HCPCS: 80051; 82565; 84520; 85027

== ENCOUNTER 2024-05-30 08:31 | Day surgery (SDC) | payer BC ==
[2024-05-30] MEDS: IV FLUID CONTINUATION 1,000 ML IV ONE (09:38)
[2024-05-30] MEDS: SODIUM CHLORIDE 0.9% 1,000 ML IV SCH (09:40)
[2024-05-30 09:43] LABS: Glucose,Whole Blood 82 mg/dL (70-110)
[2024-05-30] MEDS: ONDANSETRON 4 MG/2 ML VIAL IVP STA (10:55)
[2024-05-30] MEDS: DEXAMETHASONE SOD PHOSPHATE 4 MG/ML 1 ML VIAL IVP STA (11:08)
[2024-05-30] MEDS ORDERED: MIDAZOLAM 2 MG/2 ML VIAL ONE (11:09)
[2024-05-30] MEDS ORDERED: ISOPROTERENOL 250 MCG/1.25 ML SYR IV ONE (11:09)
[2024-05-30] MEDS ORDERED: diphenhydrAMINE 50 MG/ML 1 ML VIAL ONE (11:09)
[2024-05-30] MEDS ORDERED: HEPARIN SODIUM,PORCINE 5,000 UNIT/ML 1 ML VIAL ONE (11:09)
[2024-05-30] MEDS ORDERED: fentaNYL (PF) 50 MCG/ML 2 ML AMP ONE (11:09)
[2024-05-30] MEDS: HEPARIN SODIUM,PORCINE 10,000 UNIT in SODIUM CHLORIDE 0.9% 1,000 ML IRRIGATION ONE (11:27)
[2024-05-30] MEDS: ceFAZolin 3 GM in SODIUM CHLORIDE 0.9% 100 ML IVPB STA (11:48)
[2024-05-30] MEDS: ROPIVACAINE 5 MG/ML 30 ML VIAL MISCELLANE ONE (11:58)
[2024-05-30] MEDS: LIDOCAINE 1% INJ 10MG/ML (20 ML MDV) SQ ONE (11:58)
[2024-05-30] MEDS: HEPARIN SODIUM (1,000 UNIT/ML) 1,000 UNIT in SODIUM CHLORIDE 0.9% 1,000 ML IRRIGATION ONE (14:23)
[2024-05-30] MEDS ORDERED: PANTOPRAZOLE 40 MG TABLET PO PRN (14:27)
--- NOTE | 2024-05-30 14:41 | P.HPCAR ---
History of Present Illness This is Dr. Dave dictating an H/P on this patient The patient was interviewed and examined IMPRESSION / ASSESSMENT: 58-year-old female with morbid obesity Recurrent shortness of breath Associated SVT with RVR despite carvedilol Left ventricular ejection fraction of 30% with global hypokinesis status post single-chamber ICD, Fisher Documented long RP tachycardia, SVT adenosine sensitive, recurrent episodes PLAN: Diagnose EP study and radiofrequency ablation of SVT Continue heart failure and cardiomyopathy medications HPI Patient continues to have episodes of SVT and shortness of breath No fever chills cough expectoration No anginal-like symptoms. Her cardiac catheterization showed mild CAD ROS: No fever chills or rigors, no cough, phlegm or expectoration, no nausea, vomiting or diarrhea, no hematuria, dysuria, no musculoskeletal complaints, no strokes or seizures, no skin lesions. EXAMINATION: 153/80 pulse rate in the 90s Heart sounds S1-S2 normal no murmurs or gallops or rub Groins of healed well. She was treated with nystatin powder Abdomen is soft Increased BMI No JVD No lower extremity edema REVIEW OF LABS, ECG & MEDICAL DATA Sodium 137 potassium 4.2, BUN 9.8 and creatinine 0.7 Physical Exam Vitals: Vital Signs Temp Pulse Resp BP Pulse Ox 05/30/24 09:35 98.3 F 90 16 153/80 97 Intake and Output 05/29/24 05/30/24 05/30/24 22:59 06:59 14:59 Intake Total 290 Balance 290 Intake: IV 290 Other: Weight 142.5 kg Past Medical History Past Medical History: Cancer, Diabetes Mellitus, GERD/Reflux, Hyperlipidemia, Hypertension, Sleep Apnea/CPAP/BIPAP Additional Past Medical History / Comment(s): Hx anemia, mild sleep apnea (no machine), heart murmur, Has Lap Band (states no fluid), hx left breast cancer 11/2020, had radiation - completed in 2020, Dilated Cardiomyopathy. see Dr. Dave H & P History of Any Multi-Drug Resistant Organisms: None Reported Past Surgical History: AICD, Bariatric Surgery, Breast Surgery, Section, Cholecystectomy, Heart Catheterization Additional Past Surgical History / Comment(s): Left breast lumpectomy 01-22-21, Lap Band August 2004, right oopherectomy 1993, left oopherectomy 2012,. Heart Catheterization Mar 2017 -clear, colonoscopy. Past Anesthesia/Blood Transfusion Reactions: No Reported Reaction Additional Past Anesthesia/Blood Transfusion Reaction / Comment(s): Takes long time to wake up. No hx blood transfusion. Type of Cardiac Device: AICD Device Placement Date:: 01-15-24 Smoking Status: Never smoker - Past Family History Mother Family Medical History: Cancer Additional Family Medical History / Comment(s): Rectal cancer. Physical Examination Vital Signs Temp Pulse Resp BP Pulse Ox 05/30/24 09:35 98.3 F 90 16 153/80 97 Intake and Output 05/29/24 05/30/24 05/30/24 22:59 06:59 14:59 Intake Total 290 Balance 290 Intake: IV 290 Other: Weight 142.5 kg Results Current Medications Generic Name Dose Route Start Last Admin Trade Name Freq PRN Reason Stop Dose Admin Acetaminophen 650 mg 05/30/24 14:28 Acetaminophen Tab 325 Mg Tab PO Q6HR PRN Mild Pain (Scale 1 to 3) Aspirin 81 mg 05/30/24 21:00 Aspirin 81 Mg PO HS KYLE Carvedilol 6.25 mg 05/30/24 17:30 Carvedilol 6.25 Mg Tab PO BID-W/MEALS KYLE Dapagliflozin 10 mg 05/31/24 09:00 Dapagliflozin Propanediol 10 Mg Tablet PO DAILY KYLE Gabapentin 600 mg 05/30/24 21:00 Gabapentin 300 Mg Cap PO HS KYLE Sodium Chloride 1,000 mls @ 20 mls/hr 05/30/24 05:40 05/30/24 09:40 Saline 0.9% IV 06/29/24 05:39 20 mls/hr .Q24H KYLE Administration Acetaminophen 1,000 mg/ IV 100 mls @ 400 mls/hr 05/30/24 14:28 Solution IVPB 05/30/24 14:42 ONCE ONE Metformin HCl 1,000 mg 05/30/24 21:00 Metformin 500 Mg Tab PO BID KYLE Non-Formulary Medication 300 unit 05/30/24 17:30 Insulin Regular, Human [Humulin R U-500 Kwikpen] SQ TID-W/MEALS KYLE Non-Formulary Medication 40 mg 05/30/24 14:27 Omeprazole [Omeprazole] PO HS PRN Heartburn Non-Formulary Medication 20 mg 05/30/24 21:00 Rosuvastatin PO HS KYLE Non-Formulary Medication 50 mg 05/31/24 09:00 Spironolactone [Spironolactone] PO DAILY KYLE Sacubitril/Valsartan 1 each 05/30/24 21:00 Sacubitril/Valsartan 24 Mg-26 Mg Tablet PO BID KYLE Sodium Chloride 12 ml 05/30/24 14:28 Sodium Chloride 0.9% Flush 10 Ml Syringe IV Q12HR PRN Line Flush Intake and Output 05/29/24 05/30/24 05/30/24 22:59 06:59 14:59 Intake Total 290 Balance 290 Intake: IV 290 Other: Weight 142.5 kg Patient Weight 05/31/24 06:59 Weight 142.5 kg
--- NOTE | 2024-05-30 14:50 | P.EPPROC ---
- EP Procedure Note Electrophysiology Procedure Note: Indication for the procedure: Recurrent SVT drug refractory adenosine sensitive long RP SVT BMI 56 Final diagnosis High right atrial tachycardia, brooke terminalis tachycardia Successful mapping and ablation, termination of the tachycardia and rendered noninducible both on and off Isopril Details Patient is brought to the EP lab in a fasting state. Written informed consent was obtained prior to the procedure. Conscious sedation was provided Venous sheaths were attempted in the right left femoral veins. This was the most difficult part of the procedure and took a long duration Under fluoroscopy and with manual palpation of the anterior superior Ilac spine, pubic symphysis and the femoral artery, 3 venous sheaths were placed in the right femoral vein and 1 minutes venous sheath in the left femoral vein. This took a long time. Access was difficult to obtain but was finally successfully obtained without any acute complications. At the end of the procedure there is no hematoma. Vascade and Mynx closure devices were used to seal the punctures. No hematoma at the end of the procedure The Fisher single-chamber ICD was interrogated the tachycardia therapies were turned off. Baseline impedances were documented Sinus cycle length 635 ms, IN interval 185 ms, QRS 101 ms and QT 367 ms AH 84 and HV 54 ms Sinus node recovery times at a pacing cycle length of 600 ms was 663 ms AV node Wenckebach block 450 ms Burst stimulation performed from the coronary sinus and from the high right atrium VA Wenckebach block 340 ms On Isopril and with minimal stimulation of the right atrium with catheters, SVT was induced This had a Hytrulo sequence. A Penta ray catheter was placed. An intracardiac echo catheter was placed 3D anatomic mapping was performed Electroanatomic mapping was performed with the Penta ray catheter. The earliest activation site was noted in the high brooke terminalis with excellent unipolar and even better fractionated early bipolar signals After detailed mapping of the right atrium, mapping and ablation catheter was placed. RF ablation was applied to the site resulting in termination of tachycardia Intracardiac echo revealed thick brooke terminalis at the site. RF ablation was performed along the posterior aspect and then subsequently along the brooke terminalis in the anterior aspect. The first lesion resulted in ablation success RF ablation was given around this region with good contact force and power The tachycardia was rendered noninducible on Isopril as well as with straight pacing and burst stimulation as well as extrastimulation from the high right atrium and the coronary sinus At the end of the procedure venous sheaths were removed Intracardiac echo revealed absence of any pericardial effusion Patient Toller the procedure well without any acute complications The ICD was interrogated. Lead impedances were stable and tachycardia therapies were turned down
[2024-05-30 17:16] LABS: Glucose,Whole Blood 243 mg/dL (70-110)
[2024-05-30] MEDS ORDERED: INSULIN REGULAR HUMAN 500 UNIT/ML SQ SCH (17:30)
[2024-05-30] MEDS ORDERED: INSULN PE SQ SCH (17:30)
[2024-05-30] MEDS: carvediloL 6.25 MG TAB PO SCH (18:09)
[2024-05-30] MEDS: ACETAMINOPHEN TAB 325 MG TAB PO PRN (18:47)
[2024-05-30 19:07] VITALS: RESP 18
[2024-05-30 20:24] LABS: Glucose,Whole Blood 377 mg/dL (70-110)
[2024-05-30] MEDS: GABAPENTIN 300 MG CAP PO SCH (20:39)
[2024-05-30] MEDS: metFORMIN 500 MG TAB PO SCH (20:39)
[2024-05-30] MEDS: ASPIRIN 81 MG PO SCH (20:39)
[2024-05-30] MEDS: ATORVASTATIN 40 MG TAB PO SCH (20:39)
[2024-05-30] MEDS: SACUBITRIL/VALSARTAN 24 MG-26 MG TABLET PO SCH (20:39)
[2024-05-31] MEDS: ACETAMINOPHEN IV (For NPO) 1,000 MG in EMPTY BAG 1 BAG IVPB ONE (04:03)
[2024-05-31 06:01] LABS: Glucose,Whole Blood 295 mg/dL (70-110)
[2024-05-31 07:34] VITALS: BP 164/64; PULSE 77; TEMP 97.5
--- NOTE | 2024-05-31 07:54 | P.DS ---
Providers Attending physician: Willy Dave Primary care physician: [facility] Course: Patient is doing well No chest discomfort dizziness lightheadedness She had a comfortable nightOn examination heart sounds are normal Breath sounds are clear Impression History of cardiomyopathy status post single-chamber ICD, Fisher Recurrent right atrial tachycardia status post successful ablation yesterday Tachycardia rendered noninducible Suggest Continue cardiomyopathy and heart failure medications unchanged Follow-up with Dr. Lizarraga in 1 week Discharge home today Plan - Discharge Summary Discharge Rx Participant: Yes New Discharge Prescriptions: Continue RX: metFORMIN HCL [Glucophage] 1,000 mg PO BID RX: Cetirizine HCl [Zyrtec] 10 mg PO HS RX: Venlafaxine HCl [Effexor XR] 150 mg PO DAILY RX: Aspirin 81 mg PO HS RX: Omeprazole 40 mg PO HS PRN PRN Reason: Heartburn RX: Rosuvastatin [Crestor] 20 mg PO HS RX: Ergocalciferol (Vitamin D2) [Drisdol (50,000 Iu)] 1,250 mcg PO ALEXANDRA RX: Tirzepatide [Mounjaro] 10 mg SQ ALEXANDRA RX: Spironolactone 50 mg PO DAILY RX: Gabapentin 600 mg PO HS RX: Insulin Regular, Human [humuLIN R U-500 Kwikpen] 300 unit SQ TID-W/MEALS RX: Sacubitril/Valsartan [Entresto 24 mg-26 mg Tablet] 1 each PO BID #60 tab RX: Dapagliflozin Propanediol [Farxiga] 10 mg PO DAILY #30 tab RX: carvediloL [Coreg] 6.25 mg PO BID #180 tablet RX: Nystatin 100,000 Unit/gm Powd [Mycostatin Powder] 1 applic TOPICAL BID Discharge Medication List RX: metFORMIN HCL [Glucophage] 1,000 mg PO BID 01/23/19 [History] RX: Cetirizine HCl [Zyrtec] 10 mg PO HS 01/15/21 [History] RX: Venlafaxine HCl [Effexor XR] 150 mg PO DAILY 02/26/21 [History] RX: Aspirin 81 mg PO HS 05/25/23 [History] RX: Omeprazole 40 mg PO HS PRN 05/30/23 [History] RX: Rosuvastatin [Crestor] 20 mg PO HS 06/02/23 [History] RX: Ergocalciferol (Vitamin D2) [Drisdol (50,000 Iu)] 1,250 mcg PO ALEXANDRA 08/20/23 [History] RX: Insulin Regular, Human [humuLIN R U-500 Kwikpen] 300 unit SQ TID-W/MEALS 08/20/23 [History] RX: Dapagliflozin Propanediol [Farxiga] 10 mg PO DAILY #30 tab 08/24/23 [Rx] RX: Sacubitril/Valsartan [Entresto 24 mg-26 mg Tablet] 1 each PO BID #60 tab 08/24/23 [Rx] RX: Gabapentin 600 mg PO HS 01/11/24 [History] RX: Spironolactone 50 mg PO DAILY 01/11/24 [History] RX: Tirzepatide [Mounjaro] 10 mg SQ ALEXANDRA 01/11/24 [History] RX: carvediloL [Coreg] 6.25 mg PO BID #180 tablet 01/16/24 [Rx] RX: Nystatin 100,000 Unit/gm Powd [Mycostatin Powder] 1 applic TOPICAL BID 05/29/24 [History] Follow up Appointment(s)/Referral(s): Otilio Richmond MD [STAFF PHYSICIAN] - 1 Week Activity/Diet/Wound Care/Special Instructions: Post EP study - Ablation instructions 1. Keep access sites dry for 2 days. 2. No heavy lifting or straining for 2 days. 3. Avoid bending the hips repeatedly for 2 days. 4. You may go up and down stairs slowly 5. If you have had an ablation for atrial fibrillation or atrial flutter and are on a blood thinner, do not stop the blood thinner even temporarily for 3 months post ablation Call if the following is noted 1. Bleeding, increasing swelling or pain at the access sites. 2. Increasing chest discomfort, especially upon taking a deep breath. 3. Increasing shortness of breath, at rest or with exertion. 4. Undue cough / phlegm 5. Difficulty or pain while swallowing. 6. Pain or change in color in the extremities. 7. Fever, chills, rigors. 8. Increasing headache or neurologic symptoms. 9. Dizziness, fainting, palpitations Continue medications for cardiomyopathy and heart failure Discharge Disposition: HOME SELF-CARE
[2024-05-31] MEDS: DAPAGLIFLOZIN PROPANEDIOL 10 MG TABLET PO SCH (09:07)
[2024-05-31] MEDS: SPIRONOLACTONE 25 MG TAB PO SCH (09:07)
== END 2024-05-31 12:20 | disposition home or self-care (01) ==
LOC: CATHEP 08:31 → 6NMEDSUR 14:15 → CATHEP 05-31 12:20
PROVIDERS: ATTEND Internal Medicine Clinical Cardiac Electrophysiology
DX: I25.10 Atherosclerotic heart disease of native coronary artery without angina pectoris (principal); I47.19 Other supraventricular tachycardia; I44.1 Atrioventricular block, second degree; I42.9 Cardiomyopathy, unspecified; I50.22 Chronic systolic (congestive) heart failure; I11.0 Hypertensive heart disease with heart failure; K21.9 Gastro-esophageal reflux disease without esophagitis; E11.9 Type 2 diabetes mellitus without complications; E78.5 Hyperlipidemia, unspecified; E66.01 Morbid (severe) obesity due to excess calories; F41.9 Anxiety disorder, unspecified; G47.33 Obstructive sleep apnea (adult) (pediatric); Z68.43 Body mass index [BMI] 50.0-59.9, adult; Z90.49 Acquired absence of other specified parts of digestive tract; Z95.810 Presence of automatic (implantable) cardiac defibrillator; Z88.5 Allergy status to narcotic agent; Z80.0 Family history of malignant neoplasm of digestive organs; Z79.84 Long term (current) use of oral hypoglycemic drugs; Z79.4 Long term (current) use of insulin; Z79.82 Long term (current) use of aspirin; Z79.899 Other long term (current) drug therapy
CPT/HCPCS: 93623; 93662; 93653; 86900; 86901; 86850; J2250; J1200; J1644 ×3; J1100; J0690; J2405; J2003; J3010; J2795

== ENCOUNTER → 2024-08-29 | Outpatient (CLI) | payer BC ==
--- NOTE | 2024-08-29 07:52 | MM ---
Reason for Exam: Hx of breast cancer, conservation therapy. Last mammogram was performed 1 year(s) and 2 month(s) ago. Patient History: Menarche at age 14. First Full-Term at age 39. Late child-bearing (after 30). Left ovary removed at age 46. Right ovary removed at age 27. Postmenopausal. Breast cancer, left, age 55. Previous chest radiation therapy at age 55. Hormonal Contraceptives for 1 year, 6 months. 01/22/2021, Lumpectomy on the Left side. 01/22/2021, Malignant Core Biopsy on the left side. 12/21/2020, Malignant Core Biopsy on the left side. Maternal aunt had breast cancer, age 42. Prior Study Comparison: 11/14/2017 Bilateral Screening Mammogram, [facility]. 11/30/2020 Bilateral Screening Mammogram, [facility]. 12/08/2020 Left Diagnostic Mammogram, [facility]. 12/01/2021 Bilateral MG 3D diag mammo w/cad ANTHONY, [facility]. 06/28/2023 Bilateral MG 3D diag mammo w/cad ANTHONY, [facility]. Tissue Density: The breasts are heterogeneously dense, which may obscure small masses. Findings: Analyzed By CAD. There is a heterogeneous group of calcifications in the upper central margin of the left breast posterior location. Adjacent defibrillator noted. Postsurgical changes left breast. Stable appearing lymph node margin right breast. Overall Assessment: Suspicious, BI-RAD 4 Management: Stereotactic Core Biopsy of the left breast. . Results were given to the patient verbally at the time of exam. Patient should continue monthly self-breast exams. A clinical breast exam by your physician is recommended on an annual basis. This exam should not preclude additional follow-up of suspicious palpable abnormalities. Note on Kamini scores and lifetime risk: 1. A Kamini score greater than 3% is considered moderate risk. If this is the case, consider specialist referral to assess eligibility for a risk reducing agent. 2. If overall lifetime risk for the development of breast cancer is 20% or higher, the patient may qualify for future screening with alternating mammogram and breast MRI. [facility], , 08/29/2024 7:50 AM. Electronically signed and approved by: Fabian Clayton M.D. Radiolog[facility]
== END | disposition home or self-care (01) ==
LOC: RADMAMWWP 07:13
PROVIDERS: ATTEND Obstetrics & Gynecology
DX: R92.1 Mammographic calcification found on diagnostic imaging of breast (principal); R92.333 Mammographic heterogeneous density, bilateral breasts; Z80.3 Family history of malignant neoplasm of breast; Z85.3 Personal history of malignant neoplasm of breast; Z78.0 Asymptomatic menopausal state
CPT/HCPCS: 77062; 77066

== ENCOUNTER → 2024-09-05 | Day surgery (SDC) | payer BC ==
[2024-09-05 10:19] VITALS: RESP 16
[2024-09-05 12:16] VITALS: BP 116/78; PULSE 92
[2024-09-05 12:19] VITALS: TEMP 98.2
--- NOTE | 2024-09-10 09:17 | MM ---
Prior Study Comparison: 12/01/2021 Bilateral MG 3D diag mammo w/cad [facility], [facility]. 06/28/2023 Bilateral MG 3D diag mammo w/cad [facility], [facility]. 08/29/2024 Bilateral MG 3D diag mammo w/cad [facility], [facility]. Pathology Description: Marker Left Behind. Specimen Radiograph. Calcium Found: Yes Approach: Lateral to Medial Needle Type: Eviva Cores: 7 Skin Nicks: 1 Gauge: 9 The far posterior calcifications were targeted initially via a CC from above approach. However, due to patient body habitus and pacemaker generator, we are unable to secure the calcifications within the target window. A lateral approach was therefore utilized. The procedure of stereotactic guided core biopsy was explained to the patient. Benefits, alternatives, and risks were discussed. An informed consent was then obtained. The shortness pathway could not be utilized due to tissue slipping out of the target window. A lateral approach was therefore utilized. A 19-gauge vacuum assisted biopsy gun was used to obtain 10 core samples. The patient tolerated the procedure well without any immediate complication. The patient was kept in the radiology department for short stay after the procedure and then discharged home in stable condition. Targeted calcifications are identified in specimen mammogram. Patient was taken to a dedicated mammography suite for post procedure clip placement verification. Post biopsy mammogram shows the clip to appear in satisfactory position relative to the targeted area of concern on the preprocedure images. Impression: SUCCESSFUL, UNCOMPLICATED STEREOTACTIC GUIDED CORE BIOPSY OF FAR POSTERIOR LEFT BREAST MICROCALCIFICATIONS IN A PATIENT WITH HISTORY OF PRIOR LEFT BREAST CANCER. THERE IS A PACEMAKER ADJACENT TO THE CALCIFICATIONS SO FAT NECROSIS IS IN THE DIFFERENTIAL. PATHOLOGY STATUS: Results pending [facility], , 09/05/2024 12:58 PM. Pathology Results: Result: Benign. Pathology and radiology were reviewed. Findings are concordant. LEFT BREAST, STEREOTACTIC NEEDLE CORE BIOPSY: Benign fibroadipose tissue with fibrosis/scar, calcifications and histiocytes. Breast elements are not identified. Overall Assessment: Benign Management: Diagnostic Mammogram of the left breast in 6 months. Electronically signed and approved by: Monika Carmichael M.D. Radiologist
== END ==
LOC: RADMAMWWP 09:52
PROVIDERS: ATTEND Surgery
DX: L90.5 Scar conditions and fibrosis of skin (principal); N60.32 Fibrosclerosis of left breast; R92.8 Other abnormal and inconclusive findings on diagnostic imaging of breast; Z85.3 Personal history of malignant neoplasm of breast
CPT/HCPCS: 88305; 19081; A4648; J2003